=== PATIENT | female | born 1990 | race Caucasian/White ===

== ENCOUNTER 2021-10-26 16:19 | Outpatient (CLI) | payer BC, SELFPAY ==
[2021-10-26 16:46] LABS: Hematocrit 32.5 % (37.0-47.0); Hemoglobin 10.4 g/dL (12.0-15.0); Mean Corpuscular Hemoglobin 26.3 pg (26-34); Mean Corpuscular Volume 82.1 fl (80-100); Platelet Count Result 256 k/mm3 (150-375); Red Blood Count 3.96 M/mm3 (4.2-5.4); Red Cell Distribution Width 15.1 % (11.5-14.5); White Blood Count 10.9 K/mm3 (4.5-10.0)
[2021-10-27 08:00] LABS: Rapid Plasma Reagin Non-Reactive (NonReactive)
== END 2021-10-26 16:20 | disposition home or self-care (01) ==
PROVIDERS: Visit Provider Obstetrics & Gynecology
DX: O82 Encounter for cesarean delivery without indication (principal); Z3A.00 Weeks of gestation of pregnancy not specified
CPT/HCPCS: 36415; 85027; 86592; 86850; 86900; 86901

== ENCOUNTER 2021-10-27 09:47 | Inpatient (IN) | payer BC, SELFPAY ==
--- NOTE | 2021-09-29 12:46 | PC.NURSE ---
Verified with OR schedule and patient--c/s on 10/27/21 at 1200 Patient given requisition for lab draw on 10/26/21
[2021-10-27] VITALS (43 sets, daily range): BP systolic 106–135; BP diastolic 57–85; PULSE 58–98; RESP 12–18; TEMP 36.8–37.6; O2SAT 97–100; BMI 31.1
--- NOTE | 2021-10-27 10:11 | LDADM ---
This patient, Yvonne Skaggs, was admitted to Labor/Delivery/Recovery 119 on 10/27/21 at 09:47. Plans for labor, pain management and were discussed with patient. Patient/family oriented to hospital policies and general routines including ID bracelet, bed and alarms, visiting hours, pain management, procedures, bathroom and other care routines, personal items, smoking policy, room service/diet and guest tray routines, security routines, and visiting hours. Patient/Family are encouraged to report perceived risks to care and to ask questions if they do not understand what they are told or what they should do. See OBIX for further documentation.
[2021-10-27] MEDS: LACTATED RINGERS 1,000 ML 125 ML IV CONT ×3 (10:16→11:47)
--- NOTE | 2021-10-27 12:05 | P.HP_ITS ---
H&P: HPI History of Present Illness Date/Time: 10/27/21 12:05 31 y/o at 39 4/7 weeks with prior , desiring repeat. GBS neg. Chief Complaint: Here for c section. Review of Systems Review of Systems: All systems reviewed & are unremarkable except as noted in HPI and below PMFSH Past Medical History Medical History History of gestational hypertension Surgical History Surgical History (Updated 10/27/21 @ 12:07 by Davidson Ny MD) History of delivery History of tonsillectomy Family History Family History Grandparent Lung cancer Grandparent Dementia Diabetes mellitus Social History Social History Smoking status: Never smoker Substance use: never Spiritual care concerns: No Meds Home Medications and Allergies Home Medications Medication Instructions Recorded Confirmed Type -uvlr fum-folic ac-om3 See Rx Instructions .ROUTE .COMPLEX 10/27/21 10/27/21 History [One Daily ] Allergies Allergy/AdvReac Type Severity Reaction Status Date / Time No Known Allergies Allergy Verified 09/29/21 12:31 Vital Signs Vital Signs - 24 hr 10/27/21 10:24 10/27/21 10:30 10/27/21 11:00 Temperature 36.8 C Pulse Rate 98 84 83 Blood Pressure 106/78 123/79 114/73 10/27/21 11:30 Temperature Pulse Rate 76 Blood Pressure 127/82 Exam Const: Orientation/consciousness: patient oriented x3 Other: Well- developed, well-nourished female in no acute distress. Neck: Thyroid: thyroid normal Lymphatic: no lymphadenopathy noted (in neck, axilla or inguinal nodes) Resp: Effort & Inspection: normal respiratory effort Auscultation: clear to auscultation bilaterally Cardio: Rate: regular rate Rhythm: regular rhythm Heart sounds: S1 normal heart sound present and S2 normal heart sound present GI: Other: ABD: Soft, nontender, nondistended, gravid. NST reactive. TOCO: irregular contractions. No guarding or rebound tenderness. No hepatosplenomegaly. : General: Yes no CVA tenderness Other: Cervix closed/thick Back/Spine/Pelvis: Back: no CVA tenderness Skin: General skin exam: normal color and no rashes or lesions noted Neuro: General: patient oriented x3 Extrem: Other: Extremities: nontender with no edema Psych: Mental Status: mental status grossly normal Affect: normal affect Assessment and Plan Assessment and plan (1) History of delivery: Code(s): Z98.891 - History of uterine scar from previous surgery Status: Inactive Assessment and Plan: A: IUP at 39 4/7 weeks with prior P: Desires repeat . She understands risks of surgery to include risks of anesthesia, risks of pain, infection, bleeding, blood products, thromboembolic phenomena and damage to adjacent structures such as bowel, bladder, ureters, blood vessels and nerves. She understands all these risks and elects to proceed with surgery.
--- NOTE | 2021-10-27 12:07 | P.PNAN_ITS ---
Anes - Initial Pre Proc Eval Procedure: Operation Date: 10/27/21 12:00 Proposed Procedures p Repeat Section - Davidson Ny MD Date/Time: 10/27/21 12:07 Surgeon: Davidson Ny MD Pre Op Diagnosis: C Section Patient Data Age: 31 Gender: F Height: 1.65 m Weight: 85 kg Last Vital Signs Temp 36.8 C 10/27/21 11:00 Pulse 76 10/27/21 11:30 BP 127/82 10/27/21 11:30 Allergies Allergy/AdvReac Type Severity Reaction Status Date / Time No Known Allergies Allergy Verified 09/29/21 12:31 Home Medications Medication Instructions Recorded Confirmed Type -pdmr fum-folic ac-om3 See Rx Instructions .ROUTE .COMPLEX 10/27/21 10/27/21 History [One Daily ] Patient hx anesthesia problems: none Family hx anesthesia problems: none Results Review: All pre-operative results and documents have been reviewed as part of the pre-operative evaluation. [facility] Past Medical History Medical History History of gestational hypertension Surgical History Surgical History History of delivery History of tonsillectomy Family History Family History Grandparent Lung cancer Grandparent Dementia Diabetes mellitus Social History Social History Smoking status: Never smoker Substance use: never Spiritual care concerns: No Anes - Eval Final PreProcedure Day of Procedure 10/27/21 12:07 Patient weight: obese Heart: regular rate and rhythm Lungs: clear to auscultation and normal air movement Airway: Mallampati scale class II Neurological: alert and oriented Last oral intake: >/= 8 hours ASA classification: II Emergent: no Anesthetic plan: proceed Anesthesia type and monitoring: regional spinal and standard monitoring Results Review: All pre-operative results and documents have been reviewed as part of the pre-operative evaluation. Informed Consent: The patient's anesthetic plan and its attendant risks and benefits were discussed with the patient/family/POA. Questions were solicited and answers provided to the satisfaction of the patient/family/POA.
--- NOTE | 2021-10-27 12:08 | WPDHPUPDATE1 ---
History and Physical Update Update Date/Time: 10/27/21 12:08 History and Physical has been reviewed, including an updated exam of the patient. There are NO changes in the patient's condition. Risks, benefits, and alternatives have been discussed and questions answered. Patient agrees to proceed with procedure.
[2021-10-27] MEDS: KETOROLAC 30 MG/ML VIAL (*BKC) IV PUSH (13:06)
--- NOTE | 2021-10-27 13:22 | PM.OBPRVD ---
OB - Delivery Note Procedure Delivery date: 10/27/21 Procedure: Procedures Operation Date: 10/27/21 12:00 <No data on this case meets the specified criteria> Repeat low transverse delivery Delivery monitor: External FHT and External Uterine Route of delivery: (LTCS) Specimen: Yes (cord blood) Quantitative Blood Loss (ml): 285 Anesthesia type: Spinal Disposition: PACU Complications: None Narrative: The patient was taken to the operating room where she was prepared and draped in the usual sterile fashion in dorsal supine position with a leftward tilt. She received cefazolin preoperatively. Spinal anesthesia was found to be adequate. A Pfannenstiel skin incision was made along the previous scar line and was carried through to the underlying layer of the fascia. The fascia was incised in the midline and the incision was extended laterally. The fascia was dissected free of the underlying rectus muscles. The rectus muscles were in the midline. The peritoneum was identified, tented up and entered sharply. The peritoneal incision was extended superiorly and inferiorly with good visualization of the bladder. The bladder blade was placed. The vesicouterine peritoneum was identified, tented up and entered sharply. The incision was extended laterally and the bladder flap was developed. The bladder blade was replaced. The uterus was then incised sharply in a transverse fashion along the lower uterine segment. The incision was extended laterally. The infant's head was delivered atraumatically to the sterile field, followed by the body. The nose and mouth were bulb suctioned. After a delay, the cord was clamped and cut. The was handed off the field. Cord blood was collected. The placenta was removed manually and was passed off the field. The uterus was exteriorized and cleared of all clots and debris. The uterine incision was reapproximated using 0 Monocryl in a running, locked fashion. Excellent hemostasis resulted as did excellent reapproximation of the normal anatomy. The uterus was returned the abdomen. The pelvis was irrigated copiously with warmed normal saline. Rigorous hemostasis was assured. The fascial layer was reapproximated using 0 Vicryl in a running fashion. The skin was closed with a running, subcuticular stitch of 4 0 Vicryl. Dermaflex was applied externally. Sponge, lap, needle and instrument counts were correct. The patient was taken to the recovery room in stable condition. The went to the nursery in stable condition. I was present and scrubbed the entire procedure. Baby Date of : 10/27/21 Time of : 12:47 Weeks of gestation at delivery: 39 Infant gender: Male Weight (pounds): 8 Weight (ounces): 7 presentation: vertex Placenta delivery description: Manual Removal and Normal Configuration Cord Vessel Description: 3 Vessels and Delayed Cord Clamping score one minute: 9 score five minutes: 9
--- NOTE | 2021-10-27 13:25 | PM.OBDSVD ---
DS: Admitting Diagnosis Discharge Date 10/29/21 Admitting Diagnosis IUP at 39 4/7 weeks Prior DS: Discharge Diagnosis Discharge Diagnosis (1) History of delivery: Code(s): Z98.891 - History of uterine scar from previous surgery Status: Acute OB - DS: Summary OB Procedures : None OB Procedures Intrapartum: OB Procedures: : None Peripartum Data Procedures: Procedures Operation Date: 10/27/21 12:00 <No data on this case meets the specified criteria> Repeat LTCS Discharge Plan Discharge Attending physician on discharge: Davidson Ny Discharging Clinician: Davidson Ny Patient Disposition: Home, Self-Care Activity: may shower, may drive after 2 weeks and pelvic rest Diet: regular Wound Care Instructions: incision open to air Discharge Instructions: Call or return if temperature above 100.4? F, increased abdominal pain, increased vaginal bleeding or any new problems. Stand Alone Forms: General Discharge Information Follow-up/Referrals: Davidson Ny MD [Physician] - 4 Weeks Discharge Medications: New ibuprofen 600 mg tablet 600 mg PO Q6H PRN (Reason: cramps) Qty: 30 RF: 0 hydrocodone-acetaminophen 5-325 mg tablet 1 - 2 tablet PO Q6H PRN (Reason: pain) Qty: 30 RF: 0 ferrous sulfate 325 mg (65 mg iron) tablet 325 mg PO DAILY Qty: 30 RF: 0 Continued One Daily [phone] mg-mcg-mg Combo Pack See Rx Instructions .ROUTE .COMPLEX RF: 0 Date of admission: 10/27/21 09:47 Primary Care Provider: UNKNOWN,DOCTOR Admitting Provider: Davidson Ny Attending physician on admission: Davidson Ny Condition: Stable
[2021-10-27] MEDS: OXYTOCIN 30 UNITS/NS 500 ML 30 UNITS/500 ML BAG 125 UNITS IV CONT (14:15)
--- NOTE | 2021-10-27 15:50 | PC.NURSE ---
Patient transferred to post room #288. Support person present. Oriented to unit, room, information board, rooming in, admission packet and security measures. Patient verbalizes understanding.
[2021-10-27] MEDS: IBUPROFEN 600 MG TABLET PO ×2 (18:13→23:48)
[2021-10-27] MEDS: DOCUSATE SODIUM 100 MG CAPSULE PO (18:13)
[2021-10-27] MEDS: SIMETHICONE 80 MG TAB.CHEW PO (18:13)
[2021-10-27] MEDS: KCL 20 MEQ/D5/0.45% SOD CHL 1,000 ML 125 ML IV CONT ×2 (18:14→19:27)
[2021-10-27] MEDS: NALBUPHINE HCL INJ 10 MG/ML AMPUL 2.5 MG IV PUSH (18:15)
[2021-10-27] MEDS: HYDROcodone/acetaminophen (*CRX) 5-325 MG TABLET 1 TAB PO (23:48)
[2021-10-28] MEDS: HYDROcodone/acetaminophen (*CRX) 5-325 MG TABLET 1 TAB PO ×4 (03:15→17:20)
[2021-10-28 04:15] VITALS: BP 120/71; PULSE 67; RESP 16; TEMP 36.4; O2SAT 97
[2021-10-28 05:07] LABS: Basophils Percent Auto 0.2 % (0.2-1.2); Eosinophils Percent Auto 0.2 % (0-4.4); Hemoglobin 9.6 g/dL (12.0-15.0); Immature Granulocyte Absolute 0.13 K/mm3 (0.00-0.031); Immature Granulocyte Percent A 0.6 % (0-0.5); Lymphocytes Absolute Auto 2.45 K/mm3 (0.9-3.2); Lymphocytes Percent Auto 11.7 % (18.3-44.2); Mean Corpuscular Hemoglobin 25.8 pg (26-34); Mean Corpuscular Volume 83.3 fl (80-100); Mean Platelet Volume 11.9 fl (7.4-10.4); Monocytes Absolute Auto 1.3 K/mm3 (0.1-0.6); Monocytes Percent Auto 6.1 % (2.6-8.5); Neutrophils Percent Auto 81.2 % (45.5-73.1); Platelet Count Result 233 k/mm3 (150-375); Red Blood Count 3.72 M/mm3 (4.2-5.4); Red Cell Distribution Width 15.2 % (11.5-14.5); White Blood Count 20.9 K/mm3 (4.5-10.0)
[2021-10-28] MEDS: diphenhydrAMINE HCl INJ 50 MG/ML VIAL 25 MG IV PUSH (07:37)
[2021-10-28] MEDS: MULTIVIT/MIN/PREN/FOL AC/IRON TABLET 1 TAB BY MOUTH (07:38)
[2021-10-28] MEDS: DOCUSATE SODIUM 100 MG CAPSULE PO ×2 (07:38→17:20)
[2021-10-28] MEDS: IBUPROFEN 600 MG TABLET PO ×3 (07:39→19:45)
[2021-10-28] MEDS: POLYSACCHARIDE IRON COMPLEX 150 MG CAPSULE PO ×2 (07:39→17:20)
[2021-10-28] MEDS: SIMETHICONE 80 MG TAB.CHEW PO ×2 (07:39→13:32)
[2021-10-28] MEDS: LANOLIN (LANSINOH) 7.5 GM CREAM 1 APPLIC TOPICAL (07:40)
--- NOTE | 2021-10-28 07:55 | WPDANLDPN2 ---
Anes-Prog Note L&D Date/Time: 10/28/21 07:55 Comfortable throughout: section Neuraxial method: spinal Epidural/Spinal procedure site: clean & non-tender Neuro status: Neuro function grossly intact. Cardiovascular status: normal Respiratory status: normal Airway patency: baseline Mental status: baseline Post-Op hydration status: normal Vital Signs: Last Vital Signs Temp 36.4 C 10/28/21 04:15 Pulse 67 10/28/21 04:15 Resp 16 10/28/21 04:15 BP 120/71 10/28/21 04:15 Pulse Ox 97 10/28/21 04:15 Pain score (VAS): 3 I/O: Intake & Output 10/27/21 10/27/21 10/28/21 15:59 23:59 07:59 Intake Total 2000 2600 1200 Output Total 885 1850 850 Balance 1115 750 350 Post-procedural complaints: none Patient feedback: Patient satisfied with anesthetic care.
--- NOTE | 2021-10-28 07:56 | WPDANLDNPN2 ---
Anes-Prog Note L&D-Neuraxial Date/Time: 10/28/21 07:56 Neuraxial medications: intrathecal PF morphine Opiod-related complaints: none Patient feedback: Patient satisfied with post-operative pain management.
[2021-10-28 08:00] VITALS: BP 118/75; PULSE 63; RESP 18; TEMP 36.9
--- NOTE | 2021-10-28 08:58 | PM.OBPNVD ---
OB - PN: Subj Subjective Date/time seen: 10/28/21 08:58 Narrative: Pain OK. Tolerating diet. Would like circumcision for son. OB - PN: Obj Data Labs CBC & Chem 7: 10/28/21 04:06 Labs: Laboratory Results - last 24 hr 10/28/21 04:06 WBC 20.9 H RBC 3.72 L Hgb 9.6 L Hct 31.0 L MCV 83.3 MCH 25.8 L MCHC 31.0 L RDW 15.2 H Plt Count 233 MPV 11.9 H Immature Gran % (Auto) 0.6 H Neut % (Auto) 81.2 H Lymph % (Auto) 11.7 L [place] % (Auto) 6.1 Eos % (Auto) 0.2 Baso % (Auto) 0.2 Lymph # (Auto) 2.45 [place] # (Auto) 1.3 H Eos # (Auto) 0.0 Baso # (Auto) 0.0 Abs Immat Gran (auto) 0.13 H Absolute Neuts (auto) 17.0 H Absolute Nucleated RBC 0.0 Nucleated RBC % 0.0 OB - PN A/P Plan Comments: A: POD#1, doing well. P: Routine care. Reviewed circ. Exam Narrative: AVSS I/O OK ABD soft, nontender, fundus firm. Incision c/d/i. EXT nontender
[2021-10-28 11:21] VITALS: BP 116/71; PULSE 68; RESP 20; TEMP 36.5; O2SAT 97
--- NOTE | 2021-10-28 11:26 | PC.NURSE ---
On 10/28/21, the student, Alesha Newby, provided care and completed [facility] documentation on this patient. I have reviewed the student's documentation and agree with the findings.
--- NOTE | 2021-10-28 11:35 | PC.NURSE ---
[id number] Mother verbalizes she is able to independently latch with appropriate positioning/alignment. She denies any nipple discomfort and is responsively . is currently meeting outcomes for weight, output, jaundice and feeding frequencies of 8-12 times in 24 hours. Mother declines any additional assistance/education at this time. Reviewed postioning, big,wide open gape and encouraged skin to skin. Mother is encouraged to call for assistance if her infant doesn?t latch or there is discomfort with latching. Mother voiced understanding of information shared and mom and baby guide reviewed for additional resource information . Reported to the primary RN.
[2021-10-28 13:00] VITALS: BP 116/71; PULSE 68; RESP 20; TEMP 36.5; O2SAT 97
[2021-10-28 19:50] VITALS: BP 135/81; PULSE 81; RESP 18; TEMP 36.6; O2SAT 98
[2021-10-28] MEDS: HYDROcodone/acetaminophen (*CRX) 10-325 MG TABLET 1 TAB PO (21:36)
[2021-10-29] MEDS: IBUPROFEN 600 MG TABLET PO ×2 (05:31→12:04)
[2021-10-29 08:00] VITALS: BP 136/81; PULSE 73; RESP 18; TEMP 36.4
[2021-10-29] MEDS: POLYSACCHARIDE IRON COMPLEX 150 MG CAPSULE PO (08:54)
[2021-10-29] MEDS: LANOLIN (LANSINOH) 7.5 GM CREAM 1 APPLIC TOPICAL (08:54)
[2021-10-29] MEDS: MULTIVIT/MIN/PREN/FOL AC/IRON TABLET 1 TAB BY MOUTH (08:54)
[2021-10-29] MEDS: SIMETHICONE 80 MG TAB.CHEW PO (08:55)
[2021-10-29] MEDS: DOCUSATE SODIUM 100 MG CAPSULE PO (08:55)
[2021-10-29] MEDS: HYDROcodone/acetaminophen (*CRX) 5-325 MG TABLET 1 TAB PO ×3 (08:55→15:52)
[2021-10-29 12:55] VITALS: BP 136/81; PULSE 73; RESP 18; TEMP 36.4; O2SAT 98
--- NOTE | 2021-10-29 12:57 | PM.OBPNVD ---
OB - PN: Subj Subjective Date/time seen: 10/29/21 12:57 Narrative: Pain OK. Tolerating diet. Would like to go home. OB - PN: Obj Data Labs CBC & Chem 7: 10/28/21 04:06 OB - PN A/P Plan Comments: A: POD#2, doing well. P: Home to f/u 4 weeks. Exam Narrative: AVSS ABD soft, nontender, fundus firm. Incision c/d/i. EXT nontender
--- NOTE | 2021-10-29 13:00 | PC.NURSE ---
Self care and infant care discharge instructions given to parents including follow up visit date and time. Mother verbalized understanding. No questions or concerns verbalized. Very pleasant and cooperative.
--- NOTE | 2021-10-29 14:15 | PC.NURSE ---
0905 - Mother verbalizes she is able to independently latch with appropriate positioning/alignment. She denies any nipple discomfort and is responsively . Infant is currently meeting outcomes for weight, output, jaundice and feeding frequencies of 8-12 times in 24 hours. Mother declines any additional assistance/education at this time. Mother is encouraged to call for assistance if her doesn?t latch or there is discomfort with latching. Mother voiced understanding of information shared and mom and baby guide reviewed for additional resource information . Reported to the primary RN.
[2021-10-30 11:06] VITALS: BP 137/88; PULSE 88; RESP 16; TEMP 37.5; O2SAT 98
== END 2021-10-29 16:20 | disposition home or self-care (01) | DRG 788 ==
LOC: ANHLDR 13:27 → ANHOB2 15:54
PROVIDERS: Admitting Provider Obstetrics & Gynecology; Visit Provider Obstetrics & Gynecology
PROC: 10D00Z1 Extraction of Products of Conception, Low, Open Approach (ICD-10-PCS; CPT 59514; principal; 2021-10-27 12:00)
DX: O34.211 Maternal care for low transverse scar from previous cesarean delivery (principal); Z37.0 Single live birth; Z3A.39 39 weeks gestation of pregnancy
CPT/HCPCS: 36415; 85025; A9270; J0131; J1100; J1165; J1200; J1885; J2274; J2300; J2405; J2590; J3480; J7120

== ENCOUNTER 2022-04-07 10:55 | Emergency (ER) | payer BC, SELFPAY ==
[2022-04-07 11:11] VITALS: BP 132/81; PULSE 86; RESP 18; TEMP 36.6; O2SAT 100
--- NOTE | 2022-04-07 11:33 | ED.URI ---
HPI - URI/Sore Throat General Chief Complaint: Upper Respiratory Infection Stated Complaint: Cough,Congestion Time Seen by Provider: 04/07/22 11:25 History of Present Illness HPI Narrative: Yvonne Skaggs is a 31-year-old female [facility] with complaints of congestion since last Tuesday she had a fever over the weekend but has been afebrile for the last couple of days she has minimal sore throat she has sinus congestion. She also has left high slight pinkness but she states in the morning that it was sealed shut with discharge. 3-year-old son had eye discharge last week and patient is breast-feeding Related Data Home Medications Medication Instructions Recorded Confirmed norethindrone (contraceptive) 0.35 0.35 mg PO DAILY 04/07/22 04/07/22 mg tablet Allergies Allergy/AdvReac Type Severity Reaction Status Date / Time No Known Allergies Allergy Verified 04/07/22 11:00 Review of Systems Review of Systems: CONSTITUTIONAL: Denies fever, chills, sweats. EYES: Denies visual changes, redness, has discharge. ENT: Denies rhinorrhea, has congestion, mild sore throat, otalgia. CARDIOVASCULAR: Denies chest pain, palpitations, edema. RESPIRATORY: Denies dyspnea, wheezing, cough GASTROINTESTINAL: Denies abdominal pain, nausea, vomiting, diarrhea. GENITOURINARY: Denies dysuria, hematuria, abnormal discharge SKIN: Denies rash or itching. NEUROLOGIC: Denies numbness, or focal weakness. PSYCHIATRIC: Denies anxiety or depression. [facility] Past Medical History Medical History History of gestational hypertension Surgical History Surgical History History of delivery History of tonsillectomy Family History Family History Grandparent Lung cancer Grandparent Dementia Diabetes mellitus Social History Social History Smoking status: Never smoker Substance use: never Spiritual care concerns: No Comments At time of signature, I agree with nursing past medical, surgical, social and family history. There is no relevant family history pertinent to the presenting complaint. Exam Narrative: GENERAL: This is a well-nourished, well-developed patient, in mild distress. HEAD: normocephalic, atraumatic. EYES: . Sclera clear/white on right, mildly injected on the left. Vision is grossly intact. EARS: External ears normal, auditory canals clear and with drainage, TMs normal without perforation. Hearing grossly intact. NOSE: External nose normal without nasal discharge, nares without redness,has rhinorrhea. THROAT: Mucous membranes moist, posterior pharynx NECK: Neck supple, non-tender CARDIOVASCULAR: Regular rate and rhythm without murmurs, gallops, or rubs. RESPIRATORY: Clear to auscultation. Breath sounds equal bilaterally. No wheezes, rales, or rhonchi. GASTROINTESTINAL: Abdomen soft, non-tender, SKIN: warm, intact with no suspicious lesions or rash, good texture and turgor. NEURO: awake, alert, and oriented to person, place and time. There were no obvious focal neurologic abnormalities. Steady gait EXTREMITIES: Normal range of motion. BACK: Nontender without deformity Course Course Emergency Course: Patient comes with eye discharge and also sinus congestion that has been present for about a week she has been afebrile since Tuesday but the congestion has remained she is also breast-feeding Patient started on prednisone 40 mg x 5 days and should use Flonase if congestion continues Level of Care: Express Care Visit Vital Signs Vital signs: Vital Signs Temperature 97.9 F 04/07/22 11:11 Pulse Rate 86 04/07/22 11:11 Respiratory Rate 18 04/07/22 11:11 Blood Pressure 132/81 04/07/22 11:11 Pulse Oximetry 100 04/07/22 11:11 Oxygen Delivery Room Air 04/07/22 11:11
== END 2022-04-07 11:43 | disposition home or self-care (01) ==
PROVIDERS: Emergency Provider Nurse Practitioner
DX: J01.10 Acute frontal sinusitis, unspecified (principal)
CPT/HCPCS: 99213; G0463

== ENCOUNTER 2024-06-30 19:23 | Observation (INO) | payer OTHER, SELFPAY ==
--- NOTE | ~2024-06-30 | CT_ITS ---
EXAMINATION: CT abdomen pelvis w con DATE: 06/30/2024 20:42 INDICATION: Mid abdominal pain TECHNIQUE: Computed tomography (CT) of the abdomen and pelvis was performed with 100 CC Omnipaque 350 intravenous contrast. Automated exposure control and iterative reconstruction technique were employe d. Exam dose: 407.93 mGy-cm total exam DLP. COMPARISON: None. FINDINGS: The lung bases are clear. Normal heart size. No pericardial or pleural effusion. The liver, gallbladder, bile ducts spleen, pancreas and pancreatic duct appear normal. Normal adrenal glands. No renal mass lesion or urinary tract calculus or hydroureteronephrosis. The urinary bladder is unrem arkable. Retroverted uterus. The appendix measures up to 10 mm. The appendiceal wall appears thickened. There is minimal periappen diceal fat stranding. Early at acute appendicitis is suspected. No bowel obstruction, bowel wall thickening, pneumatosis or intraperitoneal free air is noted otherwi se. Normal caliber of the abdominal aorta. No intraperitoneal or retroperitoneal or pelvic mass lesion or adenopathy or ascites. Included skeletal structures are unremarkable. IMPRESSION: Appendix is dilated to 10 mm with thickening of the wall and minimal periappendiceal fat stranding, consistent with early acute appendicitis Reviewed, dictated and finalized at [facility] Reviewed, dictated and finalized at [facility]. TWISTER IMPRESSION: Appendix is dilated to 10 mm with thickening of the wall and minim al periappendiceal fat stranding, consistent with early acute appendicitis
[2024-06-30 19:28] VITALS: BP 117/78; PULSE 81; RESP 15; TEMP 36.9; O2SAT 100
[2024-06-30 19:30] VITALS: BP 117/78; O2SAT 100
[2024-06-30 19:38] LABS: Basophils Absolute Auto 0.1 K/mm3 (0.0-0.1); Basophils Percent Auto 0.3 % (0.2-1.2); Eosinophils Absolute Auto 0.1 K/mm3 (0-0.3); Eosinophils Percent Auto 0.3 % (0-4.4); Hematocrit 36.1 % (37.0-47.0); Hemoglobin 11.5 g/dL (12.0-15.0); Immature Granulocyte Absolute 0.09 K/mm3 (0.00-0.031); Immature Granulocyte Percent A 0.5 % (0-0.5); Lymphocytes Absolute Auto 3.16 K/mm3 (0.9-3.2); Lymphocytes Percent Auto 17.3 % (18.3-44.2); Mean Corpuscular HGB Conc 31.9 g/dl (32-36); Mean Corpuscular Hemoglobin 26.8 pg (26-34); Mean Corpuscular Volume 84.1 fl (80-100); Mean Platelet Volume 9.7 fl (7.4-10.4); Monocytes Absolute Auto 1.3 K/mm3 (0.1-0.6); Neutrophils Absolute Auto 13.6 K/mm3 (1.3-6.7); Neutrophils Percent Auto 74.6 % (45.5-73.1); Platelet Count Result 306 k/mm3 (150-375); Red Blood Count 4.29 M/mm3 (4.2-5.4); Red Cell Distribution Width 13.6 % (11.5-14.5); White Blood Count 18.3 K/mm3 (4.5-10.0)
[2024-06-30 19:49] LABS: Alanine Aminotransferase 14 U/L (6-35); Albumin Level 4.5 g/dL (3.5-5.1); Alkaline Phosphatase 98 U/L (38-126); Anion Gap 11 mmol/L (4-12); Aspartate Amino Transferase 25 U/L (14-36); Bilirubin,Total 0.7 mg/dL (0.2-1.3); Blood Urea Nitrogen 7 mg/dL (7-17); Calcium 9.3 mg/dL (8.4-10.2); Carbon Dioxide 22 mmol/L (22-30); Chloride 106 mmol/L (98-107); Estimated CRCL calculation 102 ml/min; Estimated Glomerular Filt Rate > 60; Glucose 113 mg/dL (65-110); Lipase 95 U/L (23-300); Potassium 3.1 mmol/L (3.4-5.0); Sodium 139 mmol/L (137-145)
--- NOTE | 2024-06-30 20:04 | ED.ABDPAIN ---
HPI - Abdominal Pain General Chief Complaint: Abdominal Pain <Ria Miller PA-C - Last Filed: 06/30/24 21:51> Stated Complaint: abdominal pain <Ria Miller PA-C - Last Filed: 06/30/24 21:51> Time Seen by Provider: 06/30/24 19:26 <Ria Miller PA-C - Last Filed: 06/30/24 21:51> Source: patient <KAROLINA Gonzáles Last Filed: 06/30/24 21:51> Mode of arrival: ambulatory <KAROLINA Gonzáles Last Filed: 06/30/24 21:51> Limitations: no limitations <Ria Miller PA-C - Last Filed: 06/30/24 21:51> History of Present Illness HPI narrative: This is a 33 year old female that presents to the ER for abdominal pain. Reports mid abdominal pain. Ongoing over the last couple of hours. Denies fever, vomiting, diarrhea, dysuria. <Ria Miller PA-C - Last Filed: 06/30/24 21:51> Related Data Home Medications: Home Medications ?Medication ?Instructions ?Recorded ?Confirmed ?Last Taken ?Type No Home Medications 06/30/24 06/30/24 Unknown History <Ria Miller PA-C - Last Filed: 06/30/24 21:51> Allergies/Adverse Reactions: Allergies Allergy/AdvReac Type Severity Reaction Status Date / Time No Known Allergies Allergy Verified 06/30/24 19:24 <Ria Miller PA-C - Last Filed: 06/30/24 21:51> Review of Systems Review of Systems: CONSTITUTIONAL: Denies fever GASTROINTESTINAL: Reports abdominal pain. Denies nausea, vomiting, or diarrhea. GENITOURINARY: Denies dysuria or hematuria. <Ria Miller PA-C - Last Filed: 06/30/24 21:51> All systems reviewed & are unremarkable except as noted in HPI and below <Ria Miller PA-C - Last Filed: 06/30/24 21:51> [facility] Past Medical History Medical History: Medical History History of gestational hypertension <KAROLINA Gonzáles Last Filed: 06/30/24 21:51> Surgical History Surgical History: Surgical History History of delivery History of tonsillectomy <KAROLINA Gonzáles Last Filed: 06/30/24 21:51> Family History Family History: Family History Grandparent Lung cancer Grandparent Dementia Diabetes mellitus <KAROLINA Gonzáles Last Filed: 06/30/24 21:51> Social History Social History: Social History Smoking status: Never smoker Alcohol intake: never Substance use: never Substance use type: does not use Do You Feel Safe in your Home?: Yes Lack of Transportation: No Lack of Food: Never True Current Housing: I Have Housing Concerned About Future Housing: No Difficulty Paying Gas/Electric Bills: No Difficulty Paying for Meds: No Currently Unemployed: No Education: Bachelor's Degree Difficulty w/ Childcare or Family Care: No Spiritual care concerns: No <KAROLINA Gonzáles Last Filed: 06/30/24 21:51> Exam Narrative: GENERAL: Well-appearing, well-nourished, and in no acute distress. HEAD: Normocephalic, atraumatic. EYES: EOMI. CHEST: Clear to auscultation. No respiratory distress. No wheezes rales or rhonchi HEART: Regular rate and rhythm. No murmur heard. Normal peripheral pulses. ABDOMEN: Soft, nondistended, normal active bowel sounds. tender to palpation in the right lower quadrant, without guarding EXTREMITIES: Normal range of motion. No edema. SKIN: Warm, dry, no rash. NEURO: No focal deficits. Alert and oriented x3. PSYCH: Normal mood and affect <KAROLINA Gonzáles Last Filed: 06/30/24 21:51> Course Course Emergency Course: patient updated on workup and need for admission for further management <KAROLINA Gonzáles Filed: 06/30/24 21:51> [employer] ASSOCIATE/PA Physician Supervision For this patient encounter, I reviewed the DISTRI[employer] C[employer] ASSOCIATE or PA documentation, treatment plan, and medical decision making; and I had [id number] time with this patient. <New Cao MD - Last Filed: 07/01/24 00:45> Consultations Consultation #1: spoke with general surgery about patient and workup. admit to surgery service. Patient will remain NPO, Zosyn will be scheduled, IV fluids given and pain medication as needed <Ria Miller PA-C - Last Filed: 06/30/24 21:51> Date: 06/30/24 <Ria Miller PA-C - Last Filed: 06/30/24 21:51> Vital Signs Vital signs: Vital Signs Temperature 98.5 F 06/30/24 19:28 Pulse Rate 81 06/30/24 19:28 Respiratory Rate 15 06/30/24 19:28 Blood Pressure 117/78 06/30/24 19:28 Pulse Oximetry 100 06/30/24 19:28 Temperature 98.5 F 06/30/24 23:25 Pulse Rate 134 H 06/30/24 23:25 Respiratory Rate 12 06/30/24 23:25 Blood Pressure 118/64 06/30/24 23:25 Pulse Oximetry 95 06/30/24 23:25 <Ria Miller PA-C - Last Filed: 06/30/24 21:51> Vital Signs Temperature 98.5 F 06/30/24 19:28 Pulse Rate 81 06/30/24 19:28 Respiratory Rate 15 06/30/24 19:28 Blood Pressure 117/78 06/30/24 19:28 Pulse Oximetry 100 06/30/24 19:28 Temperature 98.5 F 06/30/24 23:25 Pulse Rate 134 H 06/30/24 23:25 Respiratory Rate 12 06/30/24 23:25 Blood Pressure 118/64 06/30/24 23:25 Pulse Oximetry 95 06/30/24 23:25 <New Cao MD - Last Filed: 07/01/24 00:45> MDM - Abdominal Pain MDM Narrative Medical decision making narrative: Patient presents to the emergency department for mid abdominal pain and fevers. She is afebrile in the ER and nontoxic appearing. Her vitals are stable. CBC with leukocytosis to 18.3. Metabolic panel significant for mild hypokalemia, potassium and magnesium replaced. test negative. CT abdomen pelvis shows findings of early acute appendicitis. patient updated on workup and need for admission for further management. spoke with general surgery about patient and workup. admit to surgery service. Patient will remain NPO, Zosyn will be scheduled, IV fluids given and pain medication as needed <Ria Miller PA-C - Last Filed: 06/30/24 21:51> Differential Diagnosis Differential diagnosis: Likely acute appendicitis, calculus of kidney, constipation and diverticulitis <Ria Miller PA-C - Last Filed: 06/30/24 21:51> Lab Data Attestation: I reviewed the patient's lab results. <Ria Miller PA-C - Last Filed: 06/30/24 21:51> Result diagrams: 06/30/24 19:33 06/30/24 19:32 <Ria Miller PA-C - Last Filed: 06/30/24 21:51> Labs: Lab Results 06/30/24 06/30/24 06/30/24 Range/Units 19:32 19:33 20:22 WBC 18.3 H (4.5-10.0) K/mm3 RBC 4.29 (4.2-5.4) M/mm3 Hgb 11.5 L (12.0-15.0) g/dL Hct 36.1 L (37.0-47.0) % MCV 84.1 (80-100) fl MCH 26.8 (26-34) pg MCHC 31.9 L (32-36) g/dl RDW 13.6 (11.5-14.5) % Plt Count 306 (150-375) k/mm3 MPV 9.7 (7.4-10.4) fl Immature Gran % (Auto) 0.5 (0-0.5) % Neut % (Auto) 74.6 H (45.5-73.1) % Lymph % (Auto) 17.3 L (18.3-44.2) % [place] % (Auto) 7.0 (2.6-8.5) % Eos % (Auto) 0.3 (0-4.4) % Baso % (Auto) 0.3 (0.2-1.2) % Lymph # (Auto) 3.16 (0.9-3.2) K/mm3 [place] # (Auto) 1.3 H (0.1-0.6) K/mm3 Eos # (Auto) 0.1 (0-0.3) K/mm3 Baso # (Auto) 0.1 (0.0-0.1) K/mm3 Abs Immat Gran (auto) 0.09 H (0.00-0.031) K/mm3 Absolute Neuts (auto) 13.6 H (1.3-6.7) K/mm3 Absolute Nucleated RBC 0.000 (0.0-0.012) K/mm3 Nucleated RBC % 0.0 (0.0-0.2) % Sodium 139 (137-145) mmol/L Potassium 3.1 L (3.4-5.0) mmol/L Chloride 106 (98-107) mmol/L Carbon Dioxide 22 (22-30) mmol/L Anion Gap 11 (4-12) mmol/L BUN 7 (7-17) mg/dL Creatinine 0.70 (0.7-1.0) mg/dL Estim Creat Clear Calc 102 ml/min Estimated GFR > 60 (59 - ) Glucose 113 H (65-110) mg/dL Calcium 9.3 (8.4-10.2) mg/dL Magnesium 1.7 (1.6-2.3) mg/dL Total Bilirubin 0.7 (0.2-1.3) mg/dL AST 25 (14-36) U/L ALT 14 (6-35) U/L Alkaline Phosphatase 98 (38-126) U/L Total Protein 8.0 (6.3-8.2) g/dL Albumin 4.5 (3.5-5.1) g/dL Lipase 95 (23-300) U/L POC Urine HCG, Qual Negative (Negative) <Ria Miller PA-C - Last Filed: 06/30/24 21:51> Lab Results 06/30/24 06/30/24 06/30/24 Range/Units 19:32 19:33 20:22 WBC 18.3 H (4.5-10.0) K/mm3 RBC 4.29 (4.2-5.4) M/mm3 Hgb 11.5 L (12.0-15.0) g/dL Hct 36.1 L (37.0-47.0) % MCV 84.1 (80-100) fl MCH 26.8 (26-34) pg MCHC 31.9 L (32-36) g/dl RDW 13.6 (11.5-14.5) % Plt Count 306 (150-375) k/mm3 MPV 9.7 (7.4-10.4) fl Immature Gran % (Auto) 0.5 (0-0.5) % Neut % (Auto) 74.6 H (45.5-73.1) % Lymph % (Auto) 17.3 L (18.3-44.2) % [place] % (Auto) 7.0 (2.6-8.5) % Eos % (Auto) 0.3 (0-4.4) % Baso % (Auto) 0.3 (0.2-1.2) % Lymph # (Auto) 3.16 (0.9-3.2) K/mm3 [place] # (Auto) 1.3 H (0.1-0.6) K/mm3 Eos # (Auto) 0.1 (0-0.3) K/mm3 Baso # (Auto) 0.1 (0.0-0.1) K/mm3 Abs Immat Gran (auto) 0.09 H (0.00-0.031) K/mm3 Absolute Neuts (auto) 13.6 H (1.3-6.7) K/mm3 Absolute Nucleated RBC 0.000 (0.0-0.012) K/mm3 Nucleated RBC % 0.0 (0.0-0.2) % Sodium 139 (137-145) mmol/L Potassium 3.1 L (3.4-5.0) mmol/L Chloride 106 (98-107) mmol/L Carbon Dioxide 22 (22-30) mmol/L Anion Gap 11 (4-12) mmol/L BUN 7 (7-17) mg/dL Creatinine 0.70 (0.7-1.0) mg/dL Estim Creat Clear Calc 102 ml/min Estimated GFR > 60 (59 - ) Glucose 113 H (65-110) mg/dL Calcium 9.3 (8.4-10.2) mg/dL Magnesium 1.7 (1.6-2.3) mg/dL Total Bilirubin 0.7 (0.2-1.3) mg/dL AST 25 (14-36) U/L ALT 14 (6-35) U/L Alkaline Phosphatase 98 (38-126) U/L Total Protein 8.0 (6.3-8.2) g/dL Albumin 4.5 (3.5-5.1) g/dL Lipase 95 (23-300) U/L POC Urine HCG, Qual Negative (Negative) <New Cao MD - Last Filed: 07/01/24 00:45> Imaging Data Radiologist's impression: ITS Impressions Abdomen/Pelvis CT 06/30/24 20:52 IMPRESSION: Appendix is dilated to 10 mm with thickening of the wall and minimal periappendiceal fat stranding, consistent with early acute appendicitis <Ria Miller PA-C - Last Filed: 06/30/24 21:51> ITS Impressions Abdomen/Pelvis CT 06/30/24 20:52 IMPRESSION: Appendix is dilated to 10 mm with thickening of the wall and minimal periappendiceal fat stranding, consistent with early acute appendicitis <New Cao MD - Last Filed: 07/01/24 00:45> Critical Care Time Critical Care Time Critical Care Time: No <Ria Miller PA-C - Last Filed: 06/30/24 21:51> Discharge Plan Discharge Clinical Impression: Acute hypokalemia Acute appendicitis Qualifiers: Acute appendicitis type: with localized peritonitis Appendicitis gangrene presence: without gangrene Appendicitis perforation presence: without perforation Appendicitis abscess presence: without abscess Qualified Code(s): K35.30 - Acute appendicitis with localized peritonitis, without perforation or gangrene <KAROLINA Gonzáles Last Filed: 06/30/24 21:51> Patient Disposition: Still a Patient <Ria Miller PA-C - Last Filed: 06/30/24 21:51> Condition: Stable <Ria Miller PA-C - Last Filed: 06/30/24 21:51>
[2024-06-30] MEDS: ONDANSETRON INJ 4 MG/2 ML VIAL IV PUSH (20:16)
[2024-06-30] MEDS: SODIUM CHLORIDE 0.9% IV 1,000 ML 999 ML IV CONT (20:16)
[2024-06-30] MEDS: MORPHINE SULFATE (*CRX) 4 MG/ML INJ IV PUSH (20:16)
[2024-06-30 20:24] LABS: BEDSIDEPREGUCG Negative (Negative)
[2024-06-30 20:27] LABS: Magnesium 1.7 mg/dL (1.6-2.3)
[2024-06-30 21:00] VITALS: BP 131/71; PULSE 119; RESP 18; O2SAT 100
[2024-06-30] MEDS: MAGNESIUM SULF 1 GM/D5W 100 ML 1 GM/100 ML BAG IVPB (21:00)
[2024-06-30 22:01] VITALS: BP 127/72; PULSE 122; RESP 16; O2SAT 99
[2024-06-30] MEDS: PIPERACILLN/TAZ 3.375GM/NS50ML 3.375 GM/50 ML BAG IVPB (22:35)
[2024-06-30 22:52] LABS: Add Urine Microscopic? YES; Appearance Urine Clear (Clear); Bacteria Urine None Seen /hpf; Bilirubin Urine Negative (Negative); Blood Urine 2+ (Negative); Color Urine Yellow (Yellow); Glucose Urine UA Negative (Negative); Ketones Urine 1+ mg/dL (Negative); Leukocyte Esterase Ur Negative LEU/UL (Negative); Nitrate Urine Negative (Negative); Non Pathogenic Casts 0-2; Protein Urine Negative (Negative); RBC Urine 21-50 /hpf (0-2); Specific Grav Ur > 1.045 (1.001-1.035); Squamous Epithelial Cell Urine None Seen /hpf (Few); Urobilinogen Urine 0.2 mg/dL (<2.0); WBC Urine 0-5 /hpf (0-3)
[2024-06-30 23:06] VITALS: BMI 28.8
--- NOTE | 2024-06-30 23:09 | ADMGEN ---
This patient, Yvonne Skaggs, was admitted to [facility] Surg Room 319-01. Patient/family oriented to hospital policies and general routines including ID bracelet, bed and alarms, visiting hours, pain management, procedures, bathroom and other care routines, personal items, smoking policy, room service/diet, and visiting hours. Information on how to activate the Rapid Response Team has been discussed. Patient/Family are encouraged to report perceived risks to care and to ask questions if they do not understand what they are told or what they should do.
[2024-06-30] MEDS: KETOROLAC 30 MG/ML VIAL (*BKC) 15 MG IV PUSH (23:15)
[2024-06-30 23:25] VITALS: BP 118/64; PULSE 134; RESP 12; TEMP 36.9; O2SAT 95
[2024-06-30] MEDS: POTASSIUM CHLORIDE INJ 40 MEQ in SODIUM CHLORIDE 0.9% IV 500 ML 130 MEQ IVPB (23:40)
[2024-07-01] VITALS (8 sets, daily range): BP systolic 102–115; BP diastolic 55–68; PULSE 90–121; RESP 12–18; TEMP 36.6–37.1; O2SAT 98–100
[2024-07-01] MEDS: MORPHINE SULFATE (*CRX) 4 MG/ML INJ IV PUSH (03:40)
[2024-07-01] MEDS: SODIUM CHLORIDE 0.9% IV 1,000 ML 125 ML IV CONT (04:04)
[2024-07-01] MEDS: PIPERACILLN/TAZ 3.375GM/NS50ML 3.375 GM/50 ML BAG IVPB (04:30)
--- NOTE | 2024-07-01 06:59 | WPDANESEPP ---
Anes - Eval Pre Procedure Procedure: laparoscopic appendectomy Date/Time: 07/01/24 06:59 Surgeon: le Preop Diagnosis: acute appendicitis Pre Op Diagnosis: Acute appendicitis Patient Data Age: 33 Gender: F Height: 1.65 m Weight: 78.6 kg Last Vital Signs Temp 37.1 C 07/01/24 04:00 Pulse 96 07/01/24 04:00 Resp 12 07/01/24 04:00 BP 104/63 07/01/24 04:00 Pulse Ox 99 07/01/24 04:00 O2 Del Method Room Air 06/30/24 23:15 Allergies Allergy/AdvReac Type Severity Reaction Status Date / Time No Known Allergies Allergy Verified 06/30/24 19:24 Home Medications ?Medication ?Instructions ?Recorded ?Confirmed ?Type No Home Medications 06/30/24 06/30/24 History Laboratory Tests 06/30/24 06/30/24 06/30/24 19:32 19:33 20:22 WBC 18.3 H K/mm3 (4.5-10.0) RBC 4.29 M/mm3 (4.2-5.4) Hgb 11.5 L g/dL (12.0-15.0) Hct 36.1 L % (37.0-47.0) MCV 84.1 fl (80-100) MCH 26.8 pg (26-34) MCHC 31.9 L g/dl (32-36) RDW 13.6 % (11.5-14.5) Plt Count 306 k/mm3 (150-375) MPV 9.7 fl (7.4-10.4) Immature Gran % (Auto) 0.5 % (0-0.5) Neut % (Auto) 74.6 H % (45.5-73.1) Lymph % (Auto) 17.3 L % (18.3-44.2) [place] % (Auto) 7.0 % (2.6-8.5) Eos % (Auto) 0.3 % (0-4.4) Baso % (Auto) 0.3 % (0.2-1.2) Lymph # (Auto) 3.16 K/mm3 (0.9-3.2) [place] # (Auto) 1.3 H K/mm3 (0.1-0.6) Eos # (Auto) 0.1 K/mm3 (0-0.3) Baso # (Auto) 0.1 K/mm3 (0.0-0.1) Abs Immat Gran (auto) 0.09 H K/mm3 (0.00-0.031) Absolute Neuts (auto) 13.6 H K/mm3 (1.3-6.7) Absolute Nucleated RBC 0.000 K/mm3 (0.0-0.012) Nucleated RBC % 0.0 % (0.0-0.2) Sodium 139 mmol/L (137-145) Potassium 3.1 L mmol/L (3.4-5.0) Chloride 106 mmol/L (98-107) Carbon Dioxide 22 mmol/L (22-30) Anion Gap 11 mmol/L (4-12) BUN 7 mg/dL (7-17) Creatinine 0.70 mg/dL (0.7-1.0) Estim Creat Clear Calc 102 ml/min Estimated GFR > 60 (59 - ) Glucose 113 H mg/dL (65-110) Calcium 9.3 mg/dL (8.4-10.2) Magnesium 1.7 mg/dL (1.6-2.3) Total Bilirubin 0.7 mg/dL (0.2-1.3) AST 25 U/L (14-36) ALT 14 U/L (6-35) Alkaline Phosphatase 98 U/L (38-126) Total Protein 8.0 g/dL (6.3-8.2) Albumin 4.5 g/dL (3.5-5.1) Lipase 95 U/L (23-300) Urine Color Urine Appearance Urine pH Ur Specific [place] Urine Protein Urine Glucose (UA) Urine Ketones Ur Blood (Man) Urine Nitrate Urine Bilirubin Urine Urobilinogen Leukocyte Esterase Rfl Urine RBC Urine WBC Ur Squamous Epith Cells Urine Bacteria Urine Casts POC Urine HCG, Qual Negative (Negative) 06/30/24 22:36 WBC RBC Hgb Hct MCV MCH MCHC RDW Plt Count MPV Immature Gran % (Auto) Neut % (Auto) Lymph % (Auto) [place] % (Auto) Eos % (Auto) Baso % (Auto) Lymph # (Auto) [place] # (Auto) Eos # (Auto) Baso # (Auto) Abs Immat Gran (auto) Absolute Neuts (auto) Absolute Nucleated RBC Nucleated RBC % Sodium Potassium Chloride Carbon Dioxide Anion Gap BUN Creatinine Estim Creat Clear Calc Estimated GFR Glucose Calcium Magnesium Total Bilirubin AST ALT Alkaline Phosphatase Total Protein Albumin Lipase Urine Color Yellow (Yellow) Urine Appearance Clear (Clear) Urine pH 8.0 (5.0-9.0) Ur Specific [place] > 1.045 H (1.001-1.035) Urine Protein Negative mg/dL (Negative) Urine Glucose (UA) Negative mg/dL (Negative) Urine Ketones 1+ H mg/dL (Negative) Ur Blood (Man) 2+ H (Negative) Urine Nitrate Negative (Negative) Urine Bilirubin Negative (Negative) Urine Urobilinogen 0.2 mg/dL (<2.0) Leukocyte Esterase Rfl Negative KAIA/UL (Negative) Urine RBC 21-50 H /hpf (0-2) Urine WBC 0-5 /hpf (0-3) Ur Squamous Epith Cells None seen /hpf (Few) Urine Bacteria None seen /hpf Urine Casts 0-2 POC Urine HCG, Qual Patient hx anesthesia problems: post op nausea/vomiting Family hx anesthesia problems: none Results Review: All pre-operative results and documents have been reviewed as part of the pre-operative evaluation. [facility] Past Medical History Medical History History of gestational hypertension Surgical History Surgical History History of delivery History of tonsillectomy Family History Family History Grandparent Lung cancer Grandparent Dementia Diabetes mellitus Social History Social History Smoking status: Never smoker Alcohol intake: never Substance use: never Substance use type: does not use Do You Feel Safe in your Home?: Yes Lack of Transportation: No Lack of Food: Never True Current Housing: I Have Housing Concerned About Future Housing: No Difficulty Paying Gas/Electric Bills: No Difficulty Paying for Meds: No Currently Unemployed: No Education: Bachelor's Degree Difficulty w/ Childcare or Family Care: No Spiritual care concerns: No Exam Day of Procedure 07/01/24 06:59
--- NOTE | 2024-07-01 07:27 | P.PNAN_ITS ---
Anes - Eval Pre Procedure Procedure: Operation Date: 07/01/24 08:00 Proposed Procedures p Laparoscopic Appendectomy Possible Open - Az Gonzalez DO Date/Time: 07/01/24 07:27 Pre Op Diagnosis: Acute appendicitis Patient Data Age: 33 Gender: F Height: 1.65 m Weight: 78.6 kg Last Vital Signs Temp 37.1 C 07/01/24 04:00 Pulse 96 07/01/24 04:00 Resp 12 07/01/24 04:00 BP 104/63 07/01/24 04:00 Pulse Ox 99 07/01/24 04:00 O2 Del Method Room Air 06/30/24 23:15 Allergies Allergy/AdvReac Type Severity Reaction Status Date / Time No Known Allergies Allergy Verified 06/30/24 19:24 Home Medications ?Medication ?Instructions ?Recorded ?Confirmed ?Type No Home Medications 06/30/24 06/30/24 History Laboratory Tests 06/30/24 06/30/24 06/30/24 19:32 19:33 20:22 WBC 18.3 H K/mm3 (4.5-10.0) RBC 4.29 M/mm3 (4.2-5.4) Hgb 11.5 L g/dL (12.0-15.0) Hct 36.1 L % (37.0-47.0) MCV 84.1 fl (80-100) MCH 26.8 pg (26-34) MCHC 31.9 L g/dl (32-36) RDW 13.6 % (11.5-14.5) Plt Count 306 k/mm3 (150-375) MPV 9.7 fl (7.4-10.4) Immature Gran % (Auto) 0.5 % (0-0.5) Neut % (Auto) 74.6 H % (45.5-73.1) Lymph % (Auto) 17.3 L % (18.3-44.2) [place] % (Auto) 7.0 % (2.6-8.5) Eos % (Auto) 0.3 % (0-4.4) Baso % (Auto) 0.3 % (0.2-1.2) Lymph # (Auto) 3.16 K/mm3 (0.9-3.2) [place] # (Auto) 1.3 H K/mm3 (0.1-0.6) Eos # (Auto) 0.1 K/mm3 (0-0.3) Baso # (Auto) 0.1 K/mm3 (0.0-0.1) Abs Immat Gran (auto) 0.09 H K/mm3 (0.00-0.031) Absolute Neuts (auto) 13.6 H K/mm3 (1.3-6.7) Absolute Nucleated RBC 0.000 K/mm3 (0.0-0.012) Nucleated RBC % 0.0 % (0.0-0.2) Sodium 139 mmol/L (137-145) Potassium 3.1 L mmol/L (3.4-5.0) Chloride 106 mmol/L (98-107) Carbon Dioxide 22 mmol/L (22-30) Anion Gap 11 mmol/L (4-12) BUN 7 mg/dL (7-17) Creatinine 0.70 mg/dL (0.7-1.0) Estim Creat Clear Calc 102 ml/min Estimated GFR > 60 (59 - ) Glucose 113 H mg/dL (65-110) Calcium 9.3 mg/dL (8.4-10.2) Magnesium 1.7 mg/dL (1.6-2.3) Total Bilirubin 0.7 mg/dL (0.2-1.3) AST 25 U/L (14-36) ALT 14 U/L (6-35) Alkaline Phosphatase 98 U/L (38-126) Total Protein 8.0 g/dL (6.3-8.2) Albumin 4.5 g/dL (3.5-5.1) Lipase 95 U/L (23-300) Urine Color Urine Appearance Urine pH Ur Specific [place] Urine Protein Urine Glucose (UA) Urine Ketones Ur Blood (Man) Urine Nitrate Urine Bilirubin Urine Urobilinogen Leukocyte Esterase Rfl Urine RBC Urine WBC Ur Squamous Epith Cells Urine Bacteria Urine Casts POC Urine HCG, Qual Negative (Negative) 06/30/24 22:36 WBC RBC Hgb Hct MCV MCH MCHC RDW Plt Count MPV Immature Gran % (Auto) Neut % (Auto) Lymph % (Auto) [place] % (Auto) Eos % (Auto) Baso % (Auto) Lymph # (Auto) [place] # (Auto) Eos # (Auto) Baso # (Auto) Abs Immat Gran (auto) Absolute Neuts (auto) Absolute Nucleated RBC Nucleated RBC % Sodium Potassium Chloride Carbon Dioxide Anion Gap BUN Creatinine Estim Creat Clear Calc Estimated GFR Glucose Calcium Magnesium Total Bilirubin AST ALT Alkaline Phosphatase Total Protein Albumin Lipase Urine Color Yellow (Yellow) Urine Appearance Clear (Clear) Urine pH 8.0 (5.0-9.0) Ur Specific [place] > 1.045 H (1.001-1.035) Urine Protein Negative mg/dL (Negative) Urine Glucose (UA) Negative mg/dL (Negative) Urine Ketones 1+ H mg/dL (Negative) Ur Blood (Man) 2+ H (Negative) Urine Nitrate Negative (Negative) Urine Bilirubin Negative (Negative) Urine Urobilinogen 0.2 mg/dL (<2.0) Leukocyte Esterase Rfl Negative KAIA/UL (Negative) Urine RBC 21-50 H /hpf (0-2) Urine WBC 0-5 /hpf (0-3) Ur Squamous Epith Cells None seen /hpf (Few) Urine Bacteria None seen /hpf Urine Casts 0-2 POC Urine HCG, Qual Patient hx anesthesia problems: post op nausea/vomiting Family hx anesthesia problems: none Results Review: All pre-operative results and documents have been reviewed as part of the pre- operative evaluation. [facility] Past Medical History Medical History History of gestational hypertension Surgical History Surgical History History of tonsillectomy History of delivery Family History Family History Grandparent Lung cancer Grandparent Dementia Diabetes mellitus Social History Social History Smoking status: Never smoker Alcohol intake: never Substance use: never Substance use type: does not use Do You Feel Safe in your Home?: Yes Lack of Transportation: No Lack of Food: Never True Current Housing: I Have Housing Concerned About Future Housing: No Difficulty Paying Gas/Electric Bills: No Difficulty Paying for Meds: No Currently Unemployed: No Education: Bachelor's Degree Difficulty w/ Childcare or Family Care: No Spiritual care concerns: No Exam Day of Procedure 07/01/24 07:27 Patient weight: overweight Heart: regular rate and rhythm Lungs: clear to auscultation and normal air movement Airway: Mallampati scale class II Neurological: alert and oriented
[2024-07-01] MEDS: LACTATED RINGERS 1,000 ML 30 ML IV CONT ×2 (07:30→09:11)
[2024-07-01] MEDS: SCOPOLAMINE 1 MG PATCH 1 PATCH TRANSDERM (07:30)
--- NOTE | 2024-07-01 07:33 | P.HP_ITS ---
H&P: HPI History of Present Illness Date/Time: 07/01/24 07:33 Chief Complaint: Lower abdominal pain Narrative: This is a 33-year-old woman who presented to the emergency department overnight with lower abdominal pain that started yesterday. She was also feeling chills and she had 1 episode of nausea and vomiting. She has never had any symptoms like this in the past. In the emergency department she was noted to have an elevated white blood count and CT showed evidence of acute appendicitis. Review of Systems Review of Systems: All systems reviewed & are unremarkable except as noted in HPI and below Eyes: Eyes: Denies change in vision ENT: Denies hearing loss, Denies neck pain and Denies sore throat Cardiovascular: Cardiovascular: Denies chest pain and Denies dyspnea Respiratory: Respiratory: Denies cough, Denies dyspnea and Denies wheezing Gastrointestinal: Gastrointestinal: Reports as per HPI Genitourinary: Genitourinary: Denies hematuria and Denies dysuria Musculoskeletal: Musculoskeletal: Denies arthralgias, Denies joint swelling and Denies neck pain Allergic/Immunologic: Allergic/Immunologic: Denies wheezing [facility] Past Medical History Medical History History of gestational hypertension Surgical History Surgical History History of tonsillectomy History of delivery Family History Family History Grandparent Lung cancer Grandparent Dementia Diabetes mellitus Social History Social History Smoking status: Never smoker Alcohol intake: never Substance use: never Substance use type: does not use Do You Feel Safe in your Home?: Yes Lack of Transportation: No Lack of Food: Never True Current Housing: I Have Housing Concerned About Future Housing: No Difficulty Paying Gas/Electric Bills: No Difficulty Paying for Meds: No Currently Unemployed: No Education: Bachelor's Degree Difficulty w/ Childcare or Family Care: No Spiritual care concerns: No Meds Home Medications and Allergies Home Medications ?Medication ?Instructions ?Recorded ?Confirmed ?Type No Home Medications 06/30/24 06/30/24 History Allergies Allergy/AdvReac Type Severity Reaction Status Date / Time No Known Allergies Allergy Verified 06/30/24 19:24 Vital Signs Vital Signs - 24 hr 06/30/24 19:28 06/30/24 19:30 06/30/24 21:00 Temperature 98.5 F Pulse Rate 81 119 H Respiratory Rate 15 18 Blood Pressure 117/78 117/78 131/71 Pulse Oximetry 100 100 100 Oxygen Delivery 06/30/24 22:01 06/30/24 23:15 06/30/24 23:25 Temperature 98.5 F Pulse Rate 122 H 134 H Respiratory Rate 16 12 Blood Pressure 127/72 118/64 Pulse Oximetry 99 95 Oxygen Delivery Room Air 07/01/24 00:00 07/01/24 04:00 07/01/24 04:00 Temperature 98.7 F Pulse Rate 121 H 100 96 Respiratory Rate 12 Blood Pressure 104/63 Pulse Oximetry 99 Oxygen Delivery Exam Const: General: alert; No acute distress Orientation/consciousness: patient oriented x3 Limitations: no limitations HENMT: Head: normocephalic and atraumatic Ears: hearing grossly normal b ilaterally Face/Nose/Sinus: Normal external nose present and Normal nares present Mouth: Yes Normal oral and palatal mucosa present and Yes moist mucous membranes Eyes: General: appearance normal, both eyes and all related structures Conjunctivae: conjunctivae normal Sclera: sclerae normal Pupils: Equal, round and reactive pupils present EOM: EOMs intact bilaterally Neck: Neck: normal visual inspection, full ROM, no lymphadenopathy, supple and no JVD Lymphatic: no lymphadenopathy noted Chest: Chest palpation & inspection: normal inspection of the chest Resp: Effort & Inspection: normal respiratory effort and able to speak in complete sentences Auscultation: clear to auscultation bilaterally Percussion: percussion normal Cardio: Jugular venous distension: no JVD Rate: regular rate Rhythm: regular rhythm Heart sounds: S1 normal heart sound present and S2 normal heart sound present Peripheral pulses: Peripheral pulses 2+ throughout GI: Inspection: normal to inspection and non-distended GI Palp: Yes Soft to palpation, Yes Tenderness to palpation present (GI) (RLQ and infraumbilical), No Guarding due to palpation present (GI) and No Rebound tenderness present Auscultation: normal bowel sounds : General: Yes no CVA tenderness Back/Spine/Pelvis: Back: no CVA tenderness Skin: General skin exam: normal color and dry skin Neuro: General: patient oriented x3, gait normal, moves all extremities, no focal motor deficits and CN's II-XI intact bilaterally Cranial nerves: Yes Equal, round and reactive pupils present Speech: normal speech Extrem: General: normal to inspection and capillary refill normal H&P: Results Labs Labs: Short CBC 06/30/24 Range/Units 19:33 WBC 18.3 H (4.5-10.0) K/mm3 Hgb 11.5 L (12.0-15.0) g/dL Hct 36.1 L (37.0-47.0) % Plt Count 306 (150-375) k/mm3 BMP 06/30/24 19:32 Sodium 139 Potassium 3.1 L Chloride 106 Carbon Dioxide 22 BUN 7 Creatinine 0.70 Glucose 113 H Calcium 9.3 Liver Function 06/30/24 Range/Units 19:32 Total Bilirubin 0.7 (0.2-1.3) mg/dL AST 25 (14-36) U/L ALT 14 (6-35) U/L Alkaline Phosphatase 98 (38-126) U/L Albumin 4.5 (3.5-5.1) g/dL Urine 06/30/24 Range/Units 22:36 Urine Color Yellow (Yellow) Urine Appearance Clear (Clear) Urine pH 8.0 (5.0-9.0) Ur Specific [place] > 1.045 H (1.001-1.035) Urine Protein Negative (Negative) mg/dL Urine Glucose (UA) Negative (Negative) mg/dL Imaging CT scan - abdomen: Radiologist's impression: ITS Impressions Abdomen/Pelvis CT 06/30/24 20:52 IMPRESSION: Appendix is dilated to 10 mm with thickening of the wall and minimal periappendiceal fat stranding, consistent with early acute appendicitis Assessment and Plan Assessment and plan (1) Acute appendicitis: Qualifiers: Acute appendicitis type: with localized peritonitis Appendicitis abscess presence: without abscess Appendicitis gangrene presence: without gangrene Appendicitis perforation presence: without perforation Qualified Code(s): K35.30 - Acute appendicitis with localized peritonitis, without perforation or gangrene Code(s): K35.80 - Unspecified acute appendicitis Status: Acute Assessment and Plan: * I have reviewed the CT and discussed the findings with the patient. She has evidence of acute appendicitis. I discussed both medical and surgical treatment options and patient feels comfortable proceeding with surgery. I have recommended laparoscopic appendectomy, possible open. I discussed the procedure, risks, benefits, and alternatives. Questions were answered. She was started on Zosyn in the emergency department. Will continue this perioperatively.
--- NOTE | 2024-07-01 07:33 | WPDHPUPDATE1 ---
History and Physical Update Update Date/Time: 07/01/24 07:33 History and Physical has been reviewed, including an updated exam of the patient. There are NO changes in the patient's condition. Risks, benefits, and alternatives have been discussed and questions answered. Patient agrees to proceed with procedure.
--- NOTE | 2024-07-01 07:41 | WPDANESEPPF ---
Anes - Initial Pre Proc Eval Procedure: Operation Date: 07/01/24 08:00 Proposed Procedures p Laparoscopic Appendectomy Possible Open - Az Gonzalez DO Date/Time: 07/01/24 07:41 Surgeon: Az Gonzalez DO Pre Op Diagnosis: Acute appendicitis Patient Data Age: 33 Gender: F Height: 1.65 m Weight: 78.6 kg Last Vital Signs Temp 37.1 C 07/01/24 04:00 Pulse 96 07/01/24 04:00 Resp 12 07/01/24 04:00 BP 104/63 07/01/24 04:00 Pulse Ox 99 07/01/24 04:00 O2 Del Method Room Air 06/30/24 23:15 Allergies Allergy/AdvReac Type Severity Reaction Status Date / Time No Known Allergies Allergy Verified 06/30/24 19:24 Home Medications ?Medication ?Instructions ?Recorded ?Confirmed ?Type No Home Medications 06/30/24 06/30/24 History Laboratory Tests 06/30/24 06/30/24 06/30/24 19:32 19:33 20:22 WBC 18.3 H K/mm3 (4.5-10.0) RBC 4.29 M/mm3 (4.2-5.4) Hgb 11.5 L g/dL (12.0-15.0) Hct 36.1 L % (37.0-47.0) MCV 84.1 fl (80-100) MCH 26.8 pg (26-34) MCHC 31.9 L g/dl (32-36) RDW 13.6 % (11.5-14.5) Plt Count 306 k/mm3 (150-375) MPV 9.7 fl (7.4-10.4) Immature Gran % (Auto) 0.5 % (0-0.5) Neut % (Auto) 74.6 H % (45.5-73.1) Lymph % (Auto) 17.3 L % (18.3-44.2) [place] % (Auto) 7.0 % (2.6-8.5) Eos % (Auto) 0.3 % (0-4.4) Baso % (Auto) 0.3 % (0.2-1.2) Lymph # (Auto) 3.16 K/mm3 (0.9-3.2) [place] # (Auto) 1.3 H K/mm3 (0.1-0.6) Eos # (Auto) 0.1 K/mm3 (0-0.3) Baso # (Auto) 0.1 K/mm3 (0.0-0.1) Abs Immat Gran (auto) 0.09 H K/mm3 (0.00-0.031) Absolute Neuts (auto) 13.6 H K/mm3 (1.3-6.7) Absolute Nucleated RBC 0.000 K/mm3 (0.0-0.012) Nucleated RBC % 0.0 % (0.0-0.2) Sodium 139 mmol/L (137-145) Potassium 3.1 L mmol/L (3.4-5.0) Chloride 106 mmol/L (98-107) Carbon Dioxide 22 mmol/L (22-30) Anion Gap 11 mmol/L (4-12) BUN 7 mg/dL (7-17) Creatinine 0.70 mg/dL (0.7-1.0) Estim Creat Clear Calc 102 ml/min Estimated GFR > 60 (59 - ) Glucose 113 H mg/dL (65-110) Calcium 9.3 mg/dL (8.4-10.2) Magnesium 1.7 mg/dL (1.6-2.3) Total Bilirubin 0.7 mg/dL (0.2-1.3) AST 25 U/L (14-36) ALT 14 U/L (6-35) Alkaline Phosphatase 98 U/L (38-126) Total Protein 8.0 g/dL (6.3-8.2) Albumin 4.5 g/dL (3.5-5.1) Lipase 95 U/L (23-300) Urine Color Urine Appearance Urine pH Ur Specific [place] Urine Protein Urine Glucose (UA) Urine Ketones Ur Blood (Man) Urine Nitrate Urine Bilirubin Urine Urobilinogen Leukocyte Esterase Rfl Urine RBC Urine WBC Ur Squamous Epith Cells Urine Bacteria Urine Casts POC Urine HCG, Qual Negative (Negative) 06/30/24 22:36 WBC RBC Hgb Hct MCV MCH MCHC RDW Plt Count MPV Immature Gran % (Auto) Neut % (Auto) Lymph % (Auto) [place] % (Auto) Eos % (Auto) Baso % (Auto) Lymph # (Auto) [place] # (Auto) Eos # (Auto) Baso # (Auto) Abs Immat Gran (auto) Absolute Neuts (auto) Absolute Nucleated RBC Nucleated RBC % Sodium Potassium Chloride Carbon Dioxide Anion Gap BUN Creatinine Estim Creat Clear Calc Estimated GFR Glucose Calcium Magnesium Total Bilirubin AST ALT Alkaline Phosphatase Total Protein Albumin Lipase Urine Color Yellow (Yellow) Urine Appearance Clear (Clear) Urine pH 8.0 (5.0-9.0) Ur Specific [place] > 1.045 H (1.001-1.035) Urine Protein Negative mg/dL (Negative) Urine Glucose (UA) Negative mg/dL (Negative) Urine Ketones 1+ H mg/dL (Negative) Ur Blood (Man) 2+ H (Negative) Urine Nitrate Negative (Negative) Urine Bilirubin Negative (Negative) Urine Urobilinogen 0.2 mg/dL (<2.0) Leukocyte Esterase Rfl Negative KAIA/UL (Negative) Urine RBC 21-50 H /hpf (0-2) Urine WBC 0-5 /hpf (0-3) Ur Squamous Epith Cells None seen /hpf (Few) Urine Bacteria None seen /hpf Urine Casts 0-2 POC Urine HCG, Qual Patient hx anesthesia problems: post op nausea/vomiting Family hx anesthesia problems: none Results Review: All pre-operative results and documents have been reviewed as part of the pre-operative evaluation. [facility] Past Medical History Medical History History of gestational hypertension Surgical History Surgical History History of tonsillectomy History of delivery Family History Family History Grandparent Lung cancer Grandparent Dementia Diabetes mellitus Social History Social History Smoking status: Never smoker Alcohol intake: never Substance use: never Substance use type: does not use Do You Feel Safe in your Home?: Yes Lack of Transportation: No Lack of Food: Never True Current Housing: I Have Housing Concerned About Future Housing: No Difficulty Paying Gas/Electric Bills: No Difficulty Paying for Meds: No Currently Unemployed: No Education: Bachelor's Degree Difficulty w/ Childcare or Family Care: No Spiritual care concerns: No Anes - Eval Final PreProcedure Day of Procedure 07/01/24 07:41 Patient weight: overweight Heart: regular rate and rhythm Lungs: clear to auscultation Airway: Mallampati scale class II Neurological: alert and oriented Last oral intake: >/= 8 hours ASA classification: II Emergent: no Anesthetic plan: proceed Anesthesia type and monitoring: general ETT and standard monitoring Results Review: All pre-operative results and documents have been reviewed as part of the pre-operative evaluation. Informed Consent: The patient's anesthetic plan and its attendant risks and benefits were discussed with the patient/family/POA. Questions were solicited and answers provided to the satisfaction of the patient/family/POA.
--- NOTE | 2024-07-01 07:48 | WPDHPUPDATE1 ---
History and Physical Update Update Date/Time: 07/01/24 07:48 History and Physical has been reviewed, including an updated exam of the patient. There are NO changes in the patient's condition. Risks, benefits, and alternatives have been discussed and questions answered. Patient agrees to proceed with procedure.
[2024-07-01] MEDS: BUPIVACAINE/EPINEPHRINE 0.5% 30 ML VIAL INFILTRATE (08:24)
--- NOTE | 2024-07-01 08:37 | P.OP_ITS ---
Procedure Note - Detailed Date of Procedure 07/01/24 Pre-op Diagnosis Acute appendicitis Post-op Diagnosis Same (Acute appendicitis without perforation or abscess) Procedure Performed Laparoscopic appendectomy Surgeon Az Gonzalez, DO Anesthesia General and Local (0.5% bupivacaine with epinephrine) Indications This is a 33-year-old woman who presented to the emergency department last night with right lower quadrant abdominal pain. She had an elevated white blood count and CT showed evidence of early acute appendicitis. She was admitted for further treatment and started on Zosyn. Discussions were made with the patient about treatment options and decision was made to proceed with laparoscopic appen dectomy, possible open. Findings Laparoscopic appendectomy was performed. The appendix was identified and appeared acutely inflamed and indurated but did not show any evidence of perforation or abscess. There was minimal reactive fluid in the pelvis. The patient also had 1 small adhesive band of omentum up to the lower midline abdomen from her previous . This adhesion was taken down to facilitate identifying the appendix. The base of the appendix appeared healthy and viable. The appendix was removed and sent to the lab for pathology. Description of Procedure Procedure as well as risks, benefits, and alternatives were explained to the patient. The patient agreed to proceed. Written consent was obtained and placed in chart prior to procedure. The patient was brought back to surgical suite. She was placed supine on operating table. Time-out was done to confirm the patient and procedure. The patient was then intubated by the Anesthesia Department. Her abdomen was prepped and draped in sterile fashion using chlorhexidine prep. A 12 mm incision was made at the inferior portion of the umbilicus. Blunt dissection was carried out down to the linea alba. The linea alba was then incised using a 15 blade scalpel. Then bluntly entered into the peritoneal cavity. A 12 mm trocar was then inserted, and carbon dioxide insufflation was used to create a pneumoperitoneum. The camera was inserted and the abdomen was inspected. No immediate abnormalities were identified. The patient was then placed in slight Trendelenburg position and rotated to the left. A 5 mm incision was made in the suprapubic region in midline and a 5 mm trocar was inserted under direct visualization. A 5 mm incision was made in the left lower quadrant and a 5 mm trocar was inserted under direct visualization. The right lower quadrant was carefully inspected. The cecum was identified and then this was traced back to the appendix. The appendix was identified and grasped at the mesoappendix and lifted anteriorly. Careful blunt dissection was carried out at the base of the appendix through the mesoappendix using a [place] grasper. An Endo-OLIVIA 45 mm blue load stapler was then advanced across the base of the appendix and clamped and fired. A white reload was then clamped across the mesoappendix and fired. This freed up our appendix completely. It was then placed in an EndoCatch bag and removed through the umbilical port. The staple lines were then inspected. Hemostasis appeared adequate and the staple lines appeared secure. The area was then irrigated with sterile saline. The pelvis was then carefully inspected and irrigated with sterile saline as well and the remainder of the abdomen was carefully inspected. The patient was then flattened out in bed. One final inspection was made around the abdominal cavity and no other abnormalities were seen. The ports were then removed under direct visualization. The camera was removed and the pneumoperitoneum was released. The fascia of the umbilical incision was reapproximated using an 0 Vicryl [id number] suture. 0.5% bupivacaine with epinephrine was infiltrated locally around each of the incisions. The skin of the incisions was then approximated using 4-0 Monocryl subcuticular suture and Exofin glue was applied on top. The patient was then awakened from anesthesia, extubated, and transferred to Recovery. Estimated Blood Loss 5 Urine Output 0 Pathology Yes (Appendix) Complications No immediate complications Condition Stable Disposition Floor [facility] Billing Surgery - Charge Forward: Surgery Billing
--- NOTE | 2024-07-01 08:39 | P.DS_ITS ---
DS: Admitting Diagnosis Discharge Date 07/01/2024 Admitting Diagnosis Acute appendicitis DS: Discharge Diagnosis Discharge Diagnosis (1) Acute appendicitis: Qualifiers: Acute appendicitis type: with localized peritonitis Appendicitis abscess presence: without abscess Appendicitis gangrene presence: without gangrene Appendicitis perforation presence: without perforation Qualified Code(s): K35.30 - Acute appendicitis with localized peritonitis, without perforation or gangrene Code(s): K35.80 - Unspecified acute appendicitis Status: Acute DS: Summary Hospital Course Reason for hospitalization: Acute appendicitis Hospital Course: This is a 33-year-old woman who presented to the emergency department on 06/30/2024 with right lower quadrant abdominal pain that started earlier that day. She was noted to have an elevated white blood count and CT evidence of acute appendicitis. She was admitted for observation and started on Zosyn. She then underwent laparoscopic appendectomy on 07/01/2024. Surgery was u ncomplicated and she was returned to the surgical floor postoperatively. Her diet and activity were advanced as tolerated. She was discharged home once her pain was adequately controlled, vitals remained stable, she was tolerating her diet, and ambulating in the halls. Status at Discharge Functional status at discharge: independent ambulation Overall status at discharge: patient is progressing back to baseline Time Spent with Patient Time attestation: Total time spent providing and/or coordinating discharge services: Time spent: Less than 30 minutes Exam Const: General: comfortable and no acute distress GI: Inspection: non-distended and incision (Intact with glue) DS: Data Data Completed and Pending Pending studies at discharge: Pending at discharge 07/01/24 08:16 Surgical [PTH] Routine Labs on day of discharge: Labs from last 24 hours 06/30/24 06/30/24 06/30/24 22:36 20:22 19:33 WBC 18.3 H RBC 4.29 Hgb 11.5 L Hct 36.1 L MCV 84.1 MCH 26.8 MCHC 31.9 L RDW 13.6 Plt Count 306 MPV 9.7 Immature Gran % (Auto) 0.5 Neut % (Auto) 74.6 H Lymph % (Auto) 17.3 L [place] % (Auto) 7.0 Eos % (Auto) 0.3 Baso % (Auto) 0.3 Lymph # (Auto) 3.16 [place] # (Auto) 1.3 H Eos # (Auto) 0.1 Baso # (Auto) 0.1 Abs Immat Gran (auto) 0.09 H Absolute Neuts (auto) 13.6 H Absolute Nucleated RBC 0.000 Nucleated RBC % 0.0 Sodium Potassium Chloride Carbon Dioxide Anion Gap BUN Creatinine Estim Creat Clear Calc Estimated GFR Glucose Calcium Magnesium Total Bilirubin AST ALT Alkaline Phosphatase Total Protein Albumin Lipase Urine Color Yellow Urine Appearance Clear Urine pH 8.0 Ur Specific [place] > 1.045 H Urine Protein Negative Urine Glucose (UA) Negative Urine Ketones 1+ H Ur Blood (Man) 2+ H Urine Nitrate Negative Urine Bilirubin Negative Urine Urobilinogen 0.2 Leukocyte Esterase Rfl Negative Urine RBC 21-50 H Urine WBC 0-5 Ur Squamous Epith Cells None seen Urine Bacteria None seen Urine Casts 0-2 POC Urine HCG, Qual Negative 06/30/24 19:32 WBC RBC Hgb Hct MCV MCH MCHC RDW Plt Count MPV Immature Gran % (Auto) Neut % (Auto) Lymph % (Auto) [place] % (Auto) Eos % (Auto) Baso % (Auto) Lymph # (Auto) [place] # (Auto) Eos # (Auto) Baso # (Auto) Abs Immat Gran (auto) Absolute Neuts (auto) Absolute Nucleated RBC Nucleated RBC % Sodium 139 Potassium 3.1 L Chloride 106 Carbon Dioxide 22 Anion Gap 11 BUN 7 Creatinine 0.70 Estim Creat Clear Calc 102 Estimated GFR > 60 Glucose 113 H Calcium 9.3 Magnesium 1.7 Total Bilirubin 0.7 AST 25 ALT 14 Alkaline Phosphatase 98 Total Protein 8.0 Albumin 4.5 Lipase 95 Urine Color Urine Appearance Urine pH Ur Specific [place] Urine Protein Urine Glucose (UA) Urine Ketones Ur Blood (Man) Urine Nitrate Urine Bilirubin Urine Urobilinogen Leukocyte Esterase Rfl Urine RBC Urine WBC Ur Squamous Epith Cells Urine Bacteria Urine Casts POC Urine HCG, Qual Imaging Radiologist's impression: ITS Impressions Abdomen/Pelvis CT 06/30/24 20:52 IMPRESSION: Appendix is dilated to 10 mm with thickening of the wall and minimal periappendiceal fat stranding, consistent with early acute appendicitis Discharge Plan Discharge Attending physician on discharge: Az Lawson Discharging Clinician: Az Lawson Anticipated Discharge Date/Time: 07/01/24 13:00 Activity: other - see discharge instructions Diet: regular Wound Care Instructions: other - see discharge instructions Discharge Instructions: DISCHARGE INSTRUCTION SHEET FOR HERNIA, GALLBLADDER AND APPENDIX SURGERIES DR. LAWSON PATIENT TO TAKE HOME 1. May shower in 24 hours, no soaking in bath x 2weeks. 2. Call office for: * Wound increasingly painful or bleeding * Vomiting * Fever of greater than 101 degrees 3. If no bowel movement for three days, take 1 oz. (30 ml) Milk of Magnesia or MiraLax 17g 1 to 2 times daily. 4. No heavy lifting > 10-15 pounds x weeks for hernia repairs and 2 weeks for laparoscopic cholecystectomy or appendectomy. 5. No driving for 3 days or while taking narcotic pain medications. 6. Ice to surgical site for 48 hours (30 min on, then 30 min off). 7. Up walking 10-30 minutes three times per day. 8. Resume previous home medications. 9. Follow-up 10-14 days in office for wound check or as previously scheduled. ([id number]) 10. Oral pain medications prescription to be sent to pharmacy. Take Tylenol 500mg every 6 hours and Ibuprofen 600mg every 6 hours for the first 2 days, then as needed. 11. NUTRITION: Start out by drinking fluids and increase your diet as tolerated. If you experience nausea, try dry toast, crackers, and 7-UP. If nausea or vomiting persists, contact your surgeon?s office. 12. Gallbladders-Low Fat Diet for 2 weeks (send care note of low fat diet) 13. Inguinal Hernias-wear scrotal support for 48 hours 14. Abdominal Hernias-if sent home with abdominal binder, wear for the first 2 weeks (may remove to shower or at night to sleep). Revised November 2018 Patient Language: German Follow-up/Referrals: Az Lawson, DO [Physician] - Call for Appointment Discharge Medications: New hydrocodone-acetaminophen 5-325 mg tablet 1 tablet PO Q4H PRN (Reason: pain) Qty: 10 0RF Date of admission: 06/30/24 21:40 Primary Care Provider: Jeni,Chilo Foley Admitting Provider: Az Lawson Attending physician on admission: Az Lawson Condition: Improved
[2024-07-01] MEDS: ONDANSETRON INJ 4 MG/2 ML VIAL IV PUSH (08:50)
--- NOTE | 2024-07-01 09:27 | PC.NURSE ---
Returned from OR per [ ]. Report received from [tammy].
[2024-07-01] MEDS: HYDROcodone/acetaminophen (*CRX) 5-325 MG TABLET 1 TAB PO (09:50)
[2024-07-01] MEDS: LACTATED RINGERS 1,000 ML 100 ML IV CONT (09:51)
== END 2024-07-01 13:20 | disposition home or self-care (01) ==
LOC: ANHED 21:39 → ANH3MEDSUR 23:04
PROVIDERS: Admitting Provider Surgery; Emergency Provider Physician Assistant; PCP Family Medicine; Visit Provider Surgery
PROC: 0DTJ4ZZ Resection of Appendix, Percutaneous Endoscopic Approach (ICD-10-PCS; CPT 44970; principal; 2024-07-01 08:00)
DX: K35.80 Unspecified acute appendicitis (principal); E87.6 Hypokalemia
CPT/HCPCS: 44970; 36415; 74177; 80053; 81001; 81025; 83690; 83735; 85025; 87040; 88304; 96361; 96365; 96367; 96375; 99285; A9270; G0378; J1200; J1885; J2003; J2250; J2270; J2405; J2543; J2704; J3010; J3475; J3480; J7030; J7040; J7120; Q9967

== ENCOUNTER 2024-07-14 08:56 | Outpatient (CLI) | payer OTHER, SELFPAY | END 2024-07-14 08:57 | disposition home or self-care (01) | LOC: ANHLAB 08:58 | PROVIDERS: PCP Family Medicine; Visit Provider Obstetrics & Gynecology | DX: N97.0 Female infertility associated with anovulation (principal) | CPT/HCPCS: 36415; 83001 ==

== ENCOUNTER 2024-09-20 10:37 | Inpatient (IN) | payer OTHER, SELFPAY ==
[2024-09-20] VITALS (62 sets, daily range): BP systolic 74–148; BP diastolic 32–133; PULSE 119–149; RESP 11–47; TEMP 37–40; O2SAT 94–100; BMI 29.3
--- NOTE | ~2024-09-20 | XR_ITS ---
Portable chest x-ray Comparison: 09/20/2024 Clinical History: Pneumonia Findings: Left subclavian line in place. Moderate right pleural effusion is significantly increased f rom prior exam with extensive hazy right basilar and right midlung airspace disease. Possible mild gale ziness left lung base. Cardiomediastinal silhouette is stable. Bones and soft tissues are unremarkab le. Impression: Moderate pleural effusion is significantly increased. Mild to moderate probable pulmonary edema pattern. Correlate clinically for pneumonia. Support line, as above. Reviewed, dictated and finalized at location M. Impression: Moderate pleural effusion is significantly increased. Mild to moderate probable pulmonary edema pattern. Correlate clinically for pne umonia. Support line, as above.
--- NOTE | ~2024-09-20 | XR_ITS ---
EXAMINATION: XR abdomen gastric tube insert DATE: 09/21/2024 11:24 INDICATION: Nasogastric tube placement. TECHNIQUE: A semiupright view of the abdomen was obtained. COMPARISON: None. FINDINGS: The lower abdomen is excluded. The nasogastric tube tip is at the gastroesophageal junction . IMPRESSION: 1. Nasogastric tube tip at the gastroesophageal junction. Advancement is recommended. Reviewed, dictated and finalized at location L. IMPRESSION: 1. Nasogastric tube tip at the gastroesophageal junction. Advancement is recomm ended.
--- NOTE | ~2024-09-20 | NM_ITS ---
EXAMINATION: NM lung vent and perfusion DATE: 09/20/2024 15:16 INDICATION: Shortness of breath. TECHNIQUE: 24.1 mCi Xenon-133 was given for ventilation images. 5.5 mCi Tc-99m MAA was administered i ntravenously for perfusion images. Scintigraphic images of the chest were obtained. COMPARISON: Chest single view 09/20/2024, CT abdomen and pelvis 06/30/2024 FINDINGS: Ventilation images demonstrate no defects. Perfusion images demonstrate a large defect in the postero basal segment right lower lobe. IMPRESSION: 1. Intermediate probability for pulmonary embolism. Reviewed, dictated and finalized at location B.
--- NOTE | ~2024-09-20 | XR_ITS ---
EXAMINATION: XR chest 1V portable DATE: 09/20/2024 11:22 INDICATION: Shortness of breath. TECHNIQUE: A single frontal view of the chest was obtained. COMPARISON: CT abdomen and pelvis 06/30/2024 FINDINGS: There is no pneumonia, pleural effusion, or pneumothorax. The heart size is normal. IMPRESSION: 1. No acute cardiopulmonary disease. Reviewed, dictated and finalized at location B.
--- NOTE | ~2024-09-20 | US_ITS ---
EXAMINATION: US venous doppler [facility] DATE: 09/21/2024 13:14 INDICATION: Lower limb swelling. TECHNIQUE: Grayscale ultrasound images without and with compression and Doppler ultrasound images of the bilateral lower extremity veins were obtained. COMPARISON: None. FINDINGS: The visualized portions of right common femoral vein, profunda (deep) femoral vein, femoral vein, pop liteal vein, peroneal veins, posterior tibial veins, and greater saphenous vein outflow are patent. The visualized portions of left common femoral vein, profunda femoral vein, femoral vein, popliteal v ein, peroneal veins, posterior tibial veins, and greater saphenous vein outflow are patent. IMPRESSION: 1. No deep venous thrombosis. Reviewed, dictated and finalized at location L.
--- NOTE | ~2024-09-20 | XR_ITS ---
EXAMINATION: XR abdomen gastric tube rechec DATE: 09/21/2024 11:59 INDICATION: Nasogastric tube advancement. TECHNIQUE: A supine view of the abdomen was obtained. COMPARISON: Abdomen radiograph at 11:14 AM FINDINGS: The lower abdomen and right lateral aspect of the abdomen are excluded. The nasogastric tub e tip is in the stomach. There is a central line tip in right atrium. IMPRESSION: 1. Nasogastric tube tip in the stomach. Reviewed, dictated and finalized at location L.
--- NOTE | ~2024-09-20 | US_ITS ---
EXAMINATION: US renal BI DATE: 09/21/2024 12:20 INDICATION: Acute kidney injury. TECHNIQUE: Multiple ultrasound grayscale images of the kidneys were obtained. COMPARISON: CT abdomen and pelvis 09/20/2024 FINDINGS: The right kidney measures 12.4 x 4.5 x 4.6 cm. The left kidney measures 11.7 x 4.9 x 4.0 cm. The kidn eys demonstrate normal parenchymal echogenicity. There is no hydronephrosis. The bladder is decompres sed by a Castanon catheter. IMPRESSION: 1. Normal kidneys. No hydronephrosis. Reviewed, dictated and finalized at location L.
--- NOTE | ~2024-09-20 | CT_ITS ---
CT chest abdomen pelvis wo con Ordering provider: Paris Mak APRN History: . sepsis . Comparison: None. Technique: CT chest without IV contrast. CT abdomen and pelvis without oral and IV contrast. Radiatio n reduction technique utilized. The dose-length product was 687.72 mGy-cm. FINDINGS: The study is limited due to lack of IV contrast. CHEST: --VISUALIZED THORACIC INLET: Normal as visualized. Left central line with the tip overlying the superior vena cava. --MEDIASTINUM: Aorta/coronary arteries: The thoracic aorta is normal. Heart/other: The heart is not enlarged. Lymph nodes: No mediastinal or hilar adenopathy. Precarinal lymph node measuring 1.2 cm is noted. Sma ll prevascular lymph nodes are noted. --LUNGS: Right pleural effusion. Right basilar atelectasis versus pneumonia. No pulmonary nodules or masses. No pneumothorax. --MUSCULOSKELETAL: Soft tissues: The superficial soft tissues are normal. Bones: Normal spine. ABDOMEN/PELVIS: --MUSCULOSKELETAL: Bones: Normal spine. Superficial soft tissues: The superficial soft tissues are normal. --UPPER ABDOMINAL ORGANS: Liver: Normal. Gallbladder: Normal. Spleen: Normal. Stomach/duodenum: Normal. Pancreas: Normal. Adrenals: Normal. Kidneys: Normal. --PELVIC ORGANS: The bladder is normal. No bladder stones. --BOWEL AND MESENTERY: Colon: No evidence of diverticulitis. Fluid is seen in the large bowel suggestive of enteritis versus diarrhea. The appendix is not demonstrated. Small Bowel: Normal. No obstruction. Peritoneum/mesentery: No free air or free fluid. No mesenteric lymphadenopathy. Small mesenteric lymp h nodes are noted. --RETROPERITONEUM: Normal aorta. No retroperitoneal lymphadenopathy. IMPRESSION: CHEST: 1. Right pleural effusion with right basal pneumonia. 2. One 1.2 cm lymph node anterior to the maria l. ABDOMEN/PELVIS: 1. No evidence of appendicitis, diverticulitis or intestinal obstruction. 2. Fluid in the large bowel suggestive of diarrhea versus enteritis. Clinical correlation advised. Reviewed, dictated and finalized at location A.
--- NOTE | ~2024-09-20 | XR_ITS ---
EXAMINATION: XR chest ET placement DATE: 09/21/2024 11:24 INDICATION: Intubation. TECHNIQUE: A single frontal view of the chest was obtained. COMPARISON: Chest single view at 8:16 AM, chest CT 09/20/2024 FINDINGS: There are airspace opacities in right lung with a perihilar and lower lung predominance. Th ere are airspace opacities in left lower lobe. There is a moderate-sized right pleural effusion. No p neumothorax. The heart size is normal. A left subclavian central venous catheter is seen with tip at the superior cavoatrial junction. The nasogastric tube tip is at the gastroesophageal junction. The e ndotracheal tube tip is 2.5 cm above the maria l. IMPRESSION: 1. Stable airspace opacities in right lung and left lower lobe, consistent with pneumonia. 2. Stable moderate-sized right pleural effusion. 3. Nasogastric tube tip at the gastroesophageal junction. Advancement is recommended. Reviewed, dictated and finalized at location L. IMPRESSION: 1. Stable airspace opacities in right lung and left lower lobe, consistent with pneumonia. 2. Stable moderate-sized right pleural effusion. 3. Nasogastric tube tip at the gastroesophageal junction. Advancement is recomm ended.
--- NOTE | ~2024-09-20 | XR_ITS ---
Portable chest x-ray Comparison: 09/21/2024 Clinical History: Respiratory failure Findings: Endotracheal tube, NG tube, and left subclavian line are in place. Moderate to large right pleural effusion present with hazy airspace disease in the aerated right lung. Left lung clear. Car diomediastinal silhouette is stable. Bones and soft tissues are unremarkable. Impression: Moderate to large right pleural effusion with right-sided pulmonary edema/atelectasis versus pneumoni a. Left lung essentially clear. Support tubes, as above. Reviewed, dictated and finalized at location . Impression: Moderate to large right pleural effusion with right-sided pulmonary edema/atele ctasis versus pneumonia. Left lung essentially clear. Support tubes, as above.
--- NOTE | ~2024-09-20 | XR_ITS ---
XR chest port-a-cath/central Ordering provider: Steven Hayward MD History: 34 years Female with . post central line placement . Comparison: September 20, 2024 FINDINGS: MEDIASTINUM: The cardiac silhouette is not enlarged. Left central line with the tip overlying the sup erior vena cava. LUNGS: No effusions or pneumothorax. Bilateral basal opacification suggestive of atelectasis versus p neumonia. OTHER: No free air under the diaphragm. IMPRESSION: Bilateral basal pneumonia. Left central line with the tip overlying superior vena cava. Reviewed, dictated and finalized at location A.
--- NOTE | 2024-09-20 10:43 | ECG_ITS ---
Test Date: 2024-09-20 10:47:24 Measurements Intervals [place] Rate: 146 P: 68 MI: 132 QRS: 74 QRSD: 96 T: 52 QT: 326 QTc: 509 Interpretive Statements SINUS TACHYCARDIA NONSPECIFIC ST AND T-WAVE ABNORMALITY No previous ECG available for comparison Electronically Signed On 09-21-2024 16:37:25 CDT by Reilly Fajardo M.D.
--- NOTE | 2024-09-20 10:59 | ED.GENADULT ---
HPI - General Adult General Chief complaint: Shortness of Breath/Dyspnea Stated complaint: sob, flu + Time Seen by Provider: 09/20/24 10:59 Source: patient Mode of arrival: ambulatory Related Data Allergies Allergy/AdvReac Type Severity Reaction Status Date / Time No Known Allergies Allergy Verified 09/20/24 11:03 [facility] Past Medical History Medical History (Updated 09/20/24 @ 16:18 by Mark Jeffrey MD) History of gestational hypertension Surgical History Surgical History (Updated 07/20/24 @ 11:04 by Anna Lomeli MA) History of laparoscopic appendectomy 07/01/[address] Gonzalez History of tonsillectomy History of delivery Family History Family History Grandparent Lung cancer Grandparent Dementia Diabetes mellitus Social History Social History Smoking status: Never smoker Alcohol intake: never Substance use: never Substance use type: does not use Do You Feel Safe in your Home?: Yes Lack of Transportation: No Lack of Food: Never True Current Housing: I Have Housing Concerned About Future Housing: No Difficulty Paying Gas/Electric Bills: No Difficulty Paying for Meds: No Currently Unemployed: No Education: Bachelor's Degree Difficulty w/ Childcare or Family Care: No Spiritual care concerns: No Course Vital Signs Vital signs: Vital Signs Temperature 37.0 C 09/20/24 10:55 Pulse Rate 149 H 09/20/24 10:55 Respiratory Rate 23 H 09/20/24 10:55 Blood Pressure 95/40 L 09/20/24 10:55 Pulse Oximetry 99 09/20/24 10:55 Temperature 37.0 C 09/20/24 10:55 Pulse Rate 128 H 09/20/24 11:21 Respiratory Rate 23 H 09/20/24 10:55 Blood Pressure 95/40 L 09/20/24 10:55 Pulse Oximetry 100 09/20/24 11:22 Oxygen Delivery Room Air 09/20/24 11:22 Medical Decision Making MDM Narrative Medical decision making narrative: 34 YEARS OLD WHITE FEMALE TESTED POSITIVE FOR FLU RECENTLY, CAME WITH SHORTNESS OF BREATH, BODY ACHES VITAL SIGNS SHOWING BLOOD PRESSURE 95/40, HEART RATE 149 PHYSICAL EXAMINATION SHOWING ILL LOOKING PATIENT, INTERMITTENT COUGHING, TACHYCARDIA BLOOD WORKUP TODAY INCLUDES CBC, CMP, TROPONIN, D-DIMER SHOWED WBC 28.5 HIGH LIKELY SECONDARY TO REACTIVE LEUKOCYTOSIS, INSIDE 0.8% CONSISTENT WITH VIRAL INFECTION D-DIMER 1.3, ANION GAP 17, BUN 22, CREATININE 2.0 RESPIRATORY PANEL POSITIVE FOR INFLUENZA A CHEST X-RAY SHOWED NO ACUTE ABNORMALITY EKG SHOWED SINUS TACHYCARDIA AT 146 BEATS PER MINUTE V/Q SCAN POSITIVE FOR INTERMEDIATE PROBABILITY. PATIENT STARTED ON ELIQUIS BY THE NURSE PRACTITIONER ADMIT TO [facility] DIAGNOSIS INFLUENZA A, LISANDRO, PULMONARY EMBOLISM-SUSPECTED Differential Diagnosis Differential Diagnosis: ABOVE Vital Signs Vital Signs: Vital Signs Temperature 37.0 C 09/20/24 10:55 Pulse Rate 149 H 09/20/24 10:55 Respiratory Rate 23 H 09/20/24 10:55 Blood Pressure 95/40 L 09/20/24 10:55 Pulse Oximetry 99 09/20/24 10:55 Temperature 37.0 C 09/20/24 10:55 Pulse Rate 128 H 09/20/24 11:21 Respiratory Rate 23 H 09/20/24 10:55 Blood Pressure 95/40 L 09/20/24 10:55 Pulse Oximetry 100 09/20/24 11:22 Oxygen Delivery Room Air 09/20/24 11:22 Lab Data 09/20/24 11:01 09/20/24 11:01 Labs: Lab Results 09/20/24 09/20/24 Range/Units 11:01 11:05 WBC 28.5 H (4.5-10.0) K/mm3 RBC 4.93 (4.2-5.4) M/mm3 Hgb 12.9 (12.0-15.0) g/dL Hct 40.4 (37.0-47.0) % MCV 81.9 (80-100) fl MCH 26.2 (26-34) pg MCHC 31.9 L (32-36) g/dl RDW 13.2 (11.5-14.5) % Plt Count 241 (150-375) k/mm3 MPV 9.9 (7.4-10.4) fl Immature Gran % (Auto) 2.1 H (0-0.5) % Neut % (Auto) 95.1 H (45.5-73.1) % Lymph % (Auto) 0.8 L (18.3-44.2) % Dawson % (Auto) 1.4 L (2.6-8.5) % Eos % (Auto) 0.1 (0-4.4) % Baso % (Auto) 0.5 (0.2-1.2) % Lymph # (Auto) 0.24 L (0.9-3.2) K/mm3 Dawson # (Auto) 0.4 (0.1-0.6) K/mm3 Eos # (Auto) 0.0 (0-0.3) K/mm3 Baso # (Auto) 0.1 (0.0-0.1) K/mm3 Abs Immat Gran (auto) 0.60 H (0.00-0.031) K/mm3 Absolute Neuts (auto) 27.0 H (1.3-6.7) K/mm3 Absolute Nucleated RBC 0.000 (0.0-0.012) K/mm3 Nucleated RBC % 0.0 (0.0-0.2) % D-Dimer 1.34 H (<0.48) ug/mL Sodium 136 L (137-145) mmol/L Potassium 3.5 (3.4-5.0) mmol/L Chloride 94 L (98-107) mmol/L Carbon Dioxide 25 (22-30) mmol/L Anion Gap 17 H (4-12) mmol/L BUN 22 H D (7-17) mg/dL Creatinine 2.07 H (0.7-1.0) mg/dL Estim Creat Clear Calc Not Reportable Estimated GFR 27 L (59 - ) Glucose 119 H (65-110) mg/dL Calcium 9.0 (8.4-10.2) mg/dL Total Bilirubin 1.4 H (0.2-1.3) mg/dL AST 27 (14-36) U/L ALT 21 (6-35) U/L Alkaline Phosphatase 97 (38-126) U/L Total Protein 8.0 (6.3-8.2) g/dL Albumin 4.4 (3.5-5.1) g/dL Influenza A (RT-PCR) Positive A (Negative) Influenza B (RT-PCR) Negative (Negative) RSV (RT-PCR) Negative (Negative) SARS-CoV-2 RNA (RT-PCR) Negative (Negative) Imaging Data Radiologist's impression: Impressions Chest X-Ray 09/20/24 11:33 IMPRESSION: 1. No acute cardiopulmonary disease. Pulmonary Perfusion Imaging 09/20/24 15:19 IMPRESSION: 1. Intermediate probability for pulmonary embolism. ECG Data EKG #1: Attestation: I personally reviewed and interpreted this ECG as follows: ECG completion date: 09/20/24 Interpretation: SINUS TACHYCARDIA AT 142 BEATS PER MINUTE, NONSPECIFIC ST T-WAVE ABNORMALITY, ABNORMAL RHYTHM EKG, NO PREVIOUS EKG AVAILABLE FOR COMPARISON Critical Care Time Critical Care Time Critical Care Time: Yes Total Critical Care Time: 30 Discharge Plan Discharge Clinical Impression: Pulmonary embolism, Influenza A, LISANDRO (acute kidney injury) Patient Disposition: Still a Patient Condition: Stable Additional Instructions: ADMIT TO HOSPITALIST Patient Language: Citizen Of The [place] Prescriptions: No Action hydrocortisone 2.5 % cream 1 applic topical BID PRN (Reason: rash) Qty: 30 0RF Follow-up/Referrals: Jeni,Chilo Foley MD [Primary Care Provider] -
[2024-09-20] MEDS: SODIUM CHLORIDE 0.9% IV 1,000 ML 999 ML IV CONT ×4 (11:04→19:02)
[2024-09-20] MEDS: KETOROLAC 30 MG/ML VIAL (*BKC) IV PUSH (11:04)
[2024-09-20 11:09] LABS: Basophils Absolute Auto 0.1 K/mm3 (0.0-0.1); Basophils Percent Auto 0.5 % (0.2-1.2); Eosinophils Percent Auto 0.1 % (0-4.4); Hematocrit 40.4 % (37.0-47.0); Hemoglobin 12.9 g/dL (12.0-15.0); Immature Granulocyte Percent A 2.1 % (0-0.5); Lymphocytes Absolute Auto 0.24 K/mm3 (0.9-3.2); Lymphocytes Percent Auto 0.8 % (18.3-44.2); Mean Corpuscular HGB Conc 31.9 g/dl (32-36); Mean Corpuscular Hemoglobin 26.2 pg (26-34); Mean Corpuscular Volume 81.9 fl (80-100); Mean Platelet Volume 9.9 fl (7.4-10.4); Monocytes Absolute Auto 0.4 K/mm3 (0.1-0.6); Monocytes Percent Auto 1.4 % (2.6-8.5); Neutrophils Percent Auto 95.1 % (45.5-73.1); Platelet Count Result 241 k/mm3 (150-375); Red Blood Count 4.93 M/mm3 (4.2-5.4); Red Cell Distribution Width 13.2 % (11.5-14.5); White Blood Count 28.5 K/mm3 (4.5-10.0)
[2024-09-20] MEDS: ONDANSETRON INJ 4 MG/2 ML VIAL IV PUSH ×2 (11:12→14:43)
[2024-09-20] MEDS: ACETAMINOPHEN 325 MG TABLET 650 MG PO ×2 (11:13→16:54)
[2024-09-20 11:21] LABS: Alanine Aminotransferase 21 U/L (6-35); Albumin Level 4.4 g/dL (3.5-5.1); Alkaline Phosphatase 97 U/L (38-126); Anion Gap 17 mmol/L (4-12); Aspartate Amino Transferase 27 U/L (14-36); Bilirubin,Total 1.4 mg/dL (0.2-1.3); Blood Urea Nitrogen 22 mg/dL (7-17); Carbon Dioxide 25 mmol/L (22-30); Chloride 94 mmol/L (98-107); Estimated Glomerular Filt Rate 27; Glucose 119 mg/dL (65-110); Potassium 3.5 mmol/L (3.4-5.0); Sodium 136 mmol/L (137-145)
[2024-09-20 11:46] LABS: Influenza A QL RT-PCR Positive (Negative); Influenza B QL RT-PCR Negative (Negative); RSV RNA, RT-PCR Negative (Negative); SARS-CoV-2 RNA PCR Negative (Negative)
[2024-09-20 12:15] LABS: D Dimer 1.34 ug/mL (<0.48)
--- OUTSIDE RECORDS SUMMARY | 2024-09-20 12:18 | XMS_ITS | Referral Summary ---
Author Organization [facility] Address [address] [place] [phone] Care Team Providers Care Tin Cutter Name Role Phone Chilo Ngo MD Primary Care Provider + Encounters Date Type Department Care Team Description 09/20/2024 Nurse Triage [facility] Primary Care [address] [place] [phone] Chilo Ngo MD 09/18/2024 9:45 AM CDT Office Visit [facility] Primary Care [address] [place] [phone] Chilo Ngo MD Acute cough (Primary Dx); Influenza A 06/30/2024 Orders Only [facility] Health Information Management [address] [place], [place] [id number] Scanning, Provider 06/30/2024 Nurse Triage [facility] Primary Care [address] [place] [phone] Chilo Ngo MD from Last 3 Months Allergies No known active allergies Medications oseltamivir (TAMIFLU) 75 mg capsuleIndicati ons:Influenza Take 1 capsule (75 mg total) by mouth 2 (two) times a day for 5 days 10 capsule 09/18/2024 Active Active Problems Problem Noted Date Diagnosed Date Neck muscle spasm 02/01/2024 Assessment & Plan (02/01/2024 9:52 AM CDT): - NSAIDS, home PT - if no improvement will send to formal PT, add mary lou Annual physical exam 01/12/2023 Overview (02/01/2024): Chronic Medical Conditions: None Health Maintenance: - Tobacco history: Never used - Exercise: walks - Pap (21-65): 04/2022 - nml - Lipid: 01/12/23 Specialists Involved in Care: - landscape engineer - Marybeth, Dr Butcher Assessment & Plan (02/01/2024 9:52 AM CDT): - Reviewed with the patient BMI, blood pressure, diet, exercise, and encouraged healthy lifestyle choices. - Screened for high risk behaviors, diet and exercise habits, and symptoms of depression. - encouraged regular exercise and weight loss Assessment & Plan (01/12/2023 9:00 AM CDT): - Reviewed with the patient BMI, blood pressure, diet, exercise, and encouraged healthy lifestyle choices. - Screened for high risk behaviors, diet and exercise habits, and symptoms of depression. - check screening labs - encouraged regular exercise and weight loss Immunizations Immunization Administration Dates Next Due Influenza, Quadrivalent, Peggy l Culture-based MDCK, Preservative Free, Antibiotic Free, Intramuscular 05/14/2021 Influenza, Quadrivalent, Split, Intramuscular Influenza, Quadrivalent, Spl it, Preservative Free, Intramuscular 05/30/2023,05/02/2020 Influenza, Trivalent, Cell C ulture-based MDCK, Preservative Free, Antibiotic Free, Intramuscular 07/02/2024 Influenza, Unspecified 04/10/2022 Tdap 09/17/2021,10/14/2018 Social History Tobacco Use Types Packs/Day Years Used Date Smoking Tobacco: Never Smokeless Tobacco: Never AUDIT-C Answer Date Recorded Q1: How often do you have a drink containing alc ohol? 2-4 times a month 09/18/2024 Q2: How many drinks containi ng alcohol do you have on a typical day when you are drinking? 1 or 2 09/18/2024 Q3: How often do you have si x or more drinks on one occasion? 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 Gender Identity Female 01/06/2023 8:24 AM CDT Sexual Orientation Straight 01/06/2023 8: 24 AM CDT Last Filed Vital Signs Vital Sign Reading Time Taken Comments Blood Pressure 106/68 09/18/2024 9:42 AM CDT Pulse 115 09/18/2024 9:42 AM CDT Temperature 37.6 C (99.6 F) 09/18/2024 9:42 AM CDT Respiratory Rate 20 09/18/2024 9:42 AM CDT Oxygen Saturation 97% 09/18/2024 9:42 AM CDT Inhaled Oxygen Concentration - - Weight 77.9 kg (171 lb 11.2 oz) 09/18/2024 9:42 AM CDT Height 165.7 cm (5' 5.25 ) 09/18/2024 9:42 AM CD T Body Mass Index 28.35 09/18/2024 9:42 AM CDT Plan of Treatment Not on file Procedures Procedure Name Priority Date/Time Associated Diagnosis Comments POC INFLUENZA A/B, COVID-19 ANTIGEN Routine 09/18/2024 10:06 AM CDT Acute cough SCAN - RADIOLOGY/IMAGING 06/30/2024 HM PAP SMEAR WITH HPV Routine 05/02/2023 9:45 AM CDT from Last 3 Months or Most Recently Relevant to Health Maintenance Results * (ABNORMAL) POC Influenza A/B, COVID-19 antigen (09/18/2024 10:06 AM CDT) Influenza A Ag, POC Positive(A) Negative Influenza B Ag, POC Negative Negative COVID-19 Ag POC Presumptive Negative Presumptive Negative, Invalid Nasal 09/18/2024 10:0 6 AM CDT Chilo Ngo MD POINT OF CARE TEST ORDER SUNG Final Result * SCAN - RADIOLOGY/IMAGING (06/30/2024) Anatomical Region Laterality Modality Other us Provider Scanning Final Result * HM PAP SMEAR WITH HPV (05/02/2023 9:45 AM CDT) Scribed Pap Smear w/HPV Normal Historical Provider HEALTH MAINTENANCE Final Result from Last 3 Months or Most Recently Relevant to Health Maintenance Additional Health Concerns Infection Onset Date Last Indicated Influenza, adult 09/18/2024 09/18/2024 Insurance [employer] [facility] Care Teams Tin Cutter Relationship Specialty Start Date End Date Chilo Ngo MD [address] [id number] PCP - General Family Medicine 01/12/23
--- OUTSIDE RECORDS SUMMARY | 2024-09-20 12:18 | XMS_ITS | Clinical Summary ---
Author Organization [facility] Address [address] [place] [phone] Care Team Providers Care Tallow Refiner Name Role Phone Chilo Ngo MD Primary Care Provider + Allergies No known active allergies Medications oseltamivir (TAMIFLU) 75 mg capsuleIndicati ons:Influenza Take 1 capsule (75 mg total) by mouth 2 (two) times a day for 5 days 10 capsule 09/18/2024 5 Active Active Problems Problem Noted Date Diagnosed Date Neck muscle spasm 02/01/2024 Assessment & Plan (02/01/2024 9:52 AM CDT): - NSAIDS, home PT - if no improvement will send to formal PT, add robaxin Annual physical exam 01/12/2023 Overview (02/01/2024): Chronic Medical Conditions: None Health Maintenance: - Tobacco history: Never used - Exercise: walks - Pap (21-65): 04/2022 - nml - Lipid: 01/12/23 Specialists Involved in Care: - leather goods assembler - Dr Hadley Rueda Assessment & Plan (02/01/2024 9:52 AM CDT): [...] - encouraged regular exercise and weight loss Encounters Date Type Department Care Team Description 09/20/2024 Nurse Triage [facility] Primary Care [address] [place] [phone] Chilo Ngo MD 09/18/2024 9:45 AM CDT Office Visit [facility] Primary [facility] [address] [place] [phone] Chilo Ngo MD Acute cough (Primary Dx); Influenza A 06/30/2024 Orders Only [facility] Health Information Management [address] [place] [address] Scanning, Provider 06/30/2024 Nurse Triage [facility] Primary [facility] [address] [place] [phone] Chilo Ngo MD from Last 3 Months Immunizations Immunization Administration Dates Next Due Influenza, Quadrivalent, Peggy l Culture-based MDCK, Preservative Free, Antibiotic Free, Intramuscular 05/14/2021 Influenza, Quadrivalent, Split, Intramuscular Influenza, Quadrivalent, Spl it, Preservative Free, Intramuscular 05/30/2023,05/02/2020 Influenza, Trivalent, Cell C ulture-based MDCK, Preservative Free, Antibiotic Free, Intramuscular 07/02/2024 Influenza, Unspecified 04/10/2022 Tdap 09/17/2021,10/14/2018 Surgical History Surgery Date Site/Laterality Comments SECTION 11/29/18 & 10/27/21 TONSILLECTOMY 07/11/2010 - 07/10/2011 Family History Medical History Relation Name Comments No Known Problems Father Diabetes Maternal Grandmother Elvie Rao No Known Problems Mother Diabetes Mother's Brother Tae Rao Cancer Mother's Sister Parag Osman Cancer Paternal Grandfather Sharad Frank Relation Name Status Comments Father Alive Maternal Grandmother Elvie Rao Mother Alive Mother's Brother Tae Rao Mother's Sister Parag Osman Paternal Grandfather Sharad Frank Social History Tobacco Use Types Packs/Day Years [...] on file 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 Gender Identity Female 01/06/2023 8:24 AM CDT Sexual Orientation Straight 01/06/2023 8: 24 AM CDT Obstetrics History Last Filed Vital Signs Vital Sign Reading [...] 09/18/2024 9:42 AM CDT Plan of Treatment Health Maintenance Due Date Last Done Comments Hepatitis C Screening 1990 Varicella Vaccines (1 of 2 - 13+ 2-dose series) 2003 Hepatitis B Screening 2008 Covid-19 Vaccine ( season) 2024 08/01/2021, 12/19/2020, 11/21/2020 Depression Screening 01/31/2025 02/01/2024, 01/13/20 Regular Well Visit/Exam 18-64 01/31/2025 02/01/2024, 01/12/2023 Cervical Cancer Screening 05/02/2026 05/02/2023, DTaP/Tdap/Td Vaccine (3 - Td or Tdap) 09/18/2031 09/17/2021, 10/14/2018 Influenza Vaccine Completed 07/02/2024, , 04/10/2022, Additional history exists HPV Vaccines Aged Out No longer eligi ble based on patient's age to complete this topic Pneumococcal vaccine <65 Aged Out No longer eligible based on patient's age to complete this topic Procedures Procedure Name Priority Date/Time Associated Diagnosis [...] RADIOLOGY/IMAGING (06/30/2024) Anatomical Region Laterality Modality Other Provider Scanning Final Result * HM PAP SMEAR WITH HPV (05/02/2023 9:45 AM CDT) Scribed Pap Smear w/HPV Normal Michael Provider HEALTH MAINTENANCE Final Result from Last 3 Months or Most Recently Relevant to Health Maintenance Additional Health Concerns Infection Onset Date Last Indicated Influenza, adult 09/18/2024 09/18/2024 Insurance [facility] HMO/PPO Address: [address] [address] [place] [address] Care Teams Tallow Refiner Relationship Specialty Start Date End Date Chilo Ngo MD [address] [place] [id number] PCP - General Family Medicine 01/12/23
--- OUTSIDE RECORDS SUMMARY | 2024-09-20 12:18 | XMS_ITS | Encounter Summary ---
Author Organization [facility] Healthcare Address [address] [place] [address] Care Team Providers Care Warm In Name Role Phone Chilo Ngo MD Primary Care Provider + Reason for Visit * Reason Onset Date Comments Medication Reaction 09/20/2024 Encounter Details Date Type Department Care Team ([facility] st Contact Info) Description 09/20/2024 Nurse Triage [facility] Primary Care [address] [phone] Chilo Ngo MD [address] [facility] [address] [place] [address] Social History Tobacco Use Types Packs/Day Years [...] on file 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 Patient reports constant upper abdominal pain on the right side near the ribs that started last night 09/19/2024 with vomiting. Four episodes ofdiarrhea this morning. symptoms started after taking Tamiflu. Pt reports that she is unable to tolerate anything PO due to the n/v/d. Inquiring if she should stop the Tamiflu? This RN's opinion is I'm unsure if patient should proceed to ED OR patient may be appropriate for UCC OR patient may be appropriate for office visit. RN does not see appointment availability in the office today. Patient seems agreeable with ED/UCC/office visit disposition. RN guideline recommends Go to ED/UCC or Office with PCP Approval. Do you advise ED, UCC, office visit or other care recommendations? Provider contacted via secure chat for ED disposition consult. Recommendation from provider:No response/sent to ED AC convention worker called patient and spoke with spouse David. Advised he take the patient to UC or ED. David states that patient now has increased shortness of breath and they are going to go to the ED. Patient is going to [facility], closest to her home. Encounter routed to the clinical pool as an I Reason for Disposition Constant abdominal pain lasting > 2 hours Protocols used: [id number] * Telephone Encounter - Aisha Luke RN - 09/20/2024 9:23 AM CDT Regarding: diarrhea (started after 09/18/24 appt) fever, cough, moderate body aches, congestion, headaches ----- Message from Carmela Ji sent at 09/20/2024 9:18 AM CDT ----- Symptom Based Call Chief Complaint(s): diarrhea (started after 09/18/24 appt) fever, cough, moderate body aches, congestion, headaches Duration: 09/14/24 What type of symptom(s) is the patient experiencing? Non-Emergent. Is this a new or reoccurring symptom(s)? new What have you tried to help your symptom(s)? Tamiflu, Ibuprofen, Dayquil Why was appointment not scheduled? Requesting advice from clinical steamboat pilot. Additional Comments: Asking can pt stop Tamiflu since diarrhea has occurred? Does message need to be routed? Yes-Action Needed documented in this encounter Plan of Treatment Not on file documented as of this encounter Visit Diagnoses Not on filedocumented in this encounter Additional Health Concerns Infection Onset Date Last Indicated Resolved Time Influenza, adult 09/18/2024 09/18/2024 documented as of this encounter Care Teams Warm In Relationship Specialty Start Date End Date Chilo Ngo MD [address] [place] [phone] PCP - General Family Medicine 01/12/23 documented as of this encounter
--- OUTSIDE RECORDS SUMMARY | 2024-09-20 12:18 | XMS_ITS | Encounter Summary ---
Author Organization [facility] Healthcare Address [address] [place] [address] Care Team Providers Care Pressroom Worker Name Role Phone Chilo Ngo MD Primary Care Provider + Encounter Details Date Type Department Care Team (Late st Contact Info) Description 06/30/2024 Orders Only [facility] Health Information Management [address] [place] [phone] Scanning, Provider Social History Tobacco Use Types Packs/Day Years Used Date Smoking Tobacco: Never Smokeless Tobacco: Never AUDIT-C Answer Date Recorded Q1: How often do you have a drink containing alc ohol? 2-4 times a month 01/12/2023 Q2: How many drinks containi ng alcohol do you have on a typical day when you are drinking? 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 Gender Identity Female 01/06/2023 8:24 AM CDT Sexual Orientation Straight 01/06/2023 8: 24 AM CDT documented as of this encounter Plan of Treatment Not on file documented as of this encounter Procedures Procedure Name Priority Date/Time Associated Diagnosis Comments SCAN - RADIOLOGY/IMAGING 06/30/2024 documented in this encounter Results * SCAN - RADIOLOGY/IMAGING (06/30/2024) Anatomical Region Laterality Modality Other us Provider Scanning Final Result documented in this encounter Visit Diagnoses Not on filedocumented in this encounter Additional Health Concerns Infection Onset Date Last Indicated Resolved Time COVID: Suspected 09/18/2024 09/18/2024 09/18/2024 10:07 AM CDT Influenza, adult 09/18/2024 09/18/2024 documented as of this encounter Care Teams Pressroom Worker Relationship Specialty Start Date End Date Chilo Ngo MD [address] [place] [id number] PCP - General Family Medicine 01/12/23 documented as of this encounter
--- OUTSIDE RECORDS SUMMARY | 2024-09-20 13:03 | XMS_ITS | Encounter Summary ---
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 Advised he take the patient to UC or ED. David states that patient now has increased shortness of breath and they are going to go to the ED. Patient is going to [facility], closest to her home. Encounter routed to the clinical pool as an I Reason for Disposition Constant abdominal pain lasting > 2 hours Protocols used: [id number] * Telephone Encounter - Aisha Luke RN [...] appointment not scheduled? Requesting advice from clinical teamsite developer. Additional Comments: Asking can pt stop Tamiflu since diarrhea has occurred? Does message need to be routed? Yes-Action Needed documented in this encounter Plan of Treatment Not on file documented as of this encounter Visit Diagnoses Not on filedocumented in this encounter Additional Health Concerns Infection Onset Date Last Indicated Resolved Time Influenza, adult 09/18/2024 09/18/2024 documented as of this encounter Care Teams Buffer Copper Relationship Specialty Start Date End Date Chilo Ngo MD [address] [place] [phone] PCP - General Family Medicine 01/12/23 documented as of this encounter
--- OUTSIDE RECORDS SUMMARY | 2024-09-20 13:03 | XMS_ITS | Clinical Summary ---
Author Organization [facility] Address [address] [place] [phone] Care Team Providers Care Oil Rig Roughneck Name Role Phone Chilo Ngo MD Primary [...] Lipid: 01/12/23 Specialists Involved in Care: - roll sheeting cutter - Dr Hadley Rueda Assessment & Plan [...] Department Care Team Description 09/20/2024 Nurse Triage [facility] [address] [place] [phone] Chilo Ngo MD 09/18/2024 9:45 AM CDT Office Visit [facility] [address] [place] [phone] Chilo Ngo MD Acute cough (Primary Dx); Influenza A 06/30/2024 Orders Only [facility] Health Information Management [address] [place] [address] Scanning, Provider 06/30/2024 Nurse Triage [facility] [address] [place] [phone] Chilo Ngo MD from Last 3 Months [...] on file 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
--- OUTSIDE RECORDS SUMMARY | 2024-09-20 13:03 | XMS_ITS | Referral Summary ---
Author Organization [facility] Address [address] [place] [phone] Care Team Providers Care Muffler Mechanic Name Role Phone Chilo Ngo MD Primary Care Provider + Encounters Date Type Department Care Team Description 09/20/2024 Nurse Triage [facility] [address] [place] [phone] Chilo Ngo MD 09/18/2024 9:45 AM CDT Office Visit [facility] Primary [facility] [address] [place] [phone] Chilo Ngo MD Acute cough (Primary Dx); Influenza A 06/30/2024 Orders Only [facility] Health Information Management [address] [place], [place] [phone] Scanning, Provider 06/30/2024 Nurse Triage [facility] Primary [facility] [address] [place] [phone] Chilo Ngo MD from Last 3 [...] Lipid: 01/12/23 Specialists Involved in Care: - bread distributor - Marybeth, Dr Butcher Assessment & Plan [...] on file 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
--- OUTSIDE RECORDS SUMMARY | 2024-09-20 13:03 | XMS_ITS | Encounter Summary ---
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
--- NOTE | 2024-09-20 14:00 | PC.NURSE ---
Dr Jeffrey anticipating admission, ordered VQ scan - awaiting those results before admission orders will be placed
[2024-09-20] MEDS: MORPHINE SULFATE (*CRX) 4 MG/ML INJ IV PUSH (14:43)
--- NOTE | 2024-09-20 16:00 | PC.NURSE ---
Spoke with Dr Jeffrey about placing orders for admission. VQ scan is completed and resulted.
--- NOTE | 2024-09-20 16:15 | PC.NURSE ---
Called Agronomist for admit - Tele bed ordered.
--- NOTE | 2024-09-20 16:22 | ECG_ITS ---
Test Date: 2024-09-20 16:37:39 Measurements Intervals [place] Rate: 140 P: 63 MO: 133 QRS: 58 QRSD: 83 T: 36 QT: 329 QTc: 502 Interpretive Statements SINUS TACHYCARDIA NONSPECIFIC ST AND T-WAVE ABNORMALITY Compared to ECG 09/20/2024 10:47:24 NO SIGNIFICANT CHANGES Electronically Signed On 09-21-2024 16:46:12 CDT by Reilly Fajardo M.D.
--- NOTE | 2024-09-20 16:25 | PC.NURSE ---
Spoke with Supervisor Enrobing in regards to Tele admission orders and possibly need of IMU admit. Pt vital signs are abnormal. EDP made aware of heart rate 130-140. Spoke with Kait STRANGE, primary RN of pt to assess if pt has a fever or the reason for the high heart rate. Supervisor Enrobing and I decided to see if interventions in ER will help with heart rate and wait for the possible change to IMU.
[2024-09-20] MEDS: diphenhydrAMINE HCl INJ 50 MG/ML VIAL 25 MG IV PUSH (17:38)
--- NOTE | 2024-09-20 17:50 | PC.NURSE ---
Spoke with Handmade Tile Artist and EDP - decision to change her admission to IMU due to the fact she remains tachycardic at a rate ranging between 120-130, and a soft BP despite interventions completed while in the ER the past 1.5 hours.
[2024-09-20] MEDS: MIDAZOLAM HCL (*CRX) 2 MG/2 ML VIAL IV PUSH (19:36)
[2024-09-20] MEDS: NOREPINEPHRINE 8 MG/D5W 250 ML 8 MG/250 ML BAG 9.4 MG (19:49)
[2024-09-20] MEDS: NOREPINEPHRINE 8 MG/D5W 250 ML 8 MG/250 ML BAG 13.13 MG IV CONT (20:09)
[2024-09-20 20:49] LABS: Lactic Acid Reflex 3.1 mmol/L (0.7-2.0)
[2024-09-20] MEDS: CEFEPIME 1 GM/NS 50 ML 1 GM/50 ML BAG IVPB (20:51)
[2024-09-20] MEDS: SODIUM CHLORIDE 0.9% IV 1,000 ML 200 ML IV CONT (21:03)
[2024-09-20] MEDS: MORPHINE SULFATE (*CRX) 2 MG/ML INJ IV PUSH (21:28)
[2024-09-20] MEDS: ACETAMINOPHEN 650 MG SUPPOSITORY RECTAL (21:28)
--- NOTE | 2024-09-20 21:53 | P.HP_ITS ---
H&P: HPI History of Present Illness Date/Time: 09/20/24 21:53 Chief Complaint: fever influenza vomiting/diarrhea Narrative: This is a 34-year-old female with no significant past medical history who presented to the hospital for evaluation of fever, vomiting, diarrhea, and recent diagnosis of influenza A. Patient states that her symptoms started last Tuesday. She went and seen her primary care doctor this past Tuesday where she tested positive for Influenza A and was started on Tamiflu even though she was already outside the window for this medication. Since that time, her symptoms progressively worsened. She is now complaining of shortness of breath,cough, generalized malaise, fever, chills, body aches that has progressively worsened over the last 24 hours. She came to the hospital for further evaluation of her symptoms. Heart rate on presentation was 149, RR 23, Blood pressure 95/40, elevated white blood cell count of 28.5 meeting SIRS criteria. Work up in the hospital included a chest x-ray which was negative for any acute cardiopulmonary disease. V/Q scan showed intermediate probability for pulmonary embolism. Initial labs showed a white blood cell count of 28.5, D-dimer 1.34, sodium 136, chloride 94, anion gap 17, creatinine 2.07, EGFR 27, blood sugar 119, total bili 1.4. Respiratory panel was positive for influenza A. patient spiked a fever while in the ED with a T-max of 104?, heart rate ranging 120-132, respiratory rate in the 30s, blood pressure 79/39 to 91/49 requiring insertion of a central line. She was noted to be dry with collapse of her IVC during central line insertion and was given another 1 L normal saline bolus and started on IV fluids at 200 mL/hour. She was also started on Levophed. Chest x-ray for central line insertion shown a bilateral basal pneumonia and good placement of her central line. UA showed turbid urine appearance, 2+ urine protein, trace urine ketone, 1+ urine blood, 1+ urine bili, 2+ leukocytes, 51-100 urine WBC, greater than 20 urine cast. Urine and blood cultures were obtained and pending. We also got of chest/abdomen/ pelvis CT which shown a right pleural effusion with right basal pneumonia, 11.2 cm lymph node anterior to the maria l, fluid in the large bowel suggestive of diarrhea versus enteritis. Patient was started on meropenem and vancomycin. EKG showing sinus tachycardia with a heart rate of 140, QTc 502. Review of Systems Review of Systems: All systems reviewed & are unremarkable except as noted in HPI and below PMFSH Past Medical History Medical History History of gestational hypertension Surgical History Surgical History History of laparoscopic appendectomy 07/01/[address] Gonzalez History of tonsillectomy History of delivery Family History Family History (Updated 09/21/24 @ 00:14 by Candida Rausch RN) Grandparent Lung cancer Grandparent Diabetes mellitus Dementia Father Hypertension Social History Social History Smoking status: Never smoker Alcohol intake: never Substance use: never Substance use type: does not use Do You Feel Safe in your Home?: Yes Lack of Transportation: No Lack of Food: Never True Current Housing: I Have Housing Concerned About Future Housing: No Difficulty Paying Gas/Electric Bills: No Difficulty Paying for Meds: No Currently Unemployed: No Education: Bachelor's Degree Difficulty w/ Childcare or Family Care: No Spiritual care concerns: Yes (Oriental Orthodox) Meds Home Medications and Allergies Allergies Allergy/AdvReac Type Severity Reaction Status Date / Time No Known Allergies Allergy Verified 09/20/24 11:03 Vital Signs Vital Signs - 24 hr 09/20/24 10:55 09/20/24 11:02 09/20/24 11:21 Temperature 98.6 F Pulse Rate 149 H 128 H Respiratory Rate 23 H Blood Pressure 95/40 L Pulse Oximetry 99 100 Oxygen Delivery Room Air 09/20/24 11:22 09/20/24 13:00 09/20/24 15:00 Temperature Pulse Rate 125 H 126 H Respiratory Rate 24 H 25 H Blood Pressure 97/54 L 95/81 L Pulse Oximetry 100 95 96 Oxygen Delivery Room Air 09/20/24 16:46 09/20/24 16:46 09/20/24 16:48 Temperature 102.2 F H Pulse Rate 137 H 135 H 135 H Respiratory Rate 25 H 31 H 21 H Blood Pressure 90/48 L 83/32 L 87/36 L Pulse Oximetry 100 98 99 Oxygen Delivery 09/20/24 16:49 09/20/24 16:52 09/20/24 17:00 Temperature Pulse Rate 136 H 137 H 129 H Respiratory Rate 21 H 20 31 H Blood Pressure 90/48 L 84/48 L Pulse Oximetry 98 100 99 Oxygen Delivery 09/20/24 17:01 09/20/24 17:07 09/20/24 17:15 Temperature Pulse Rate 129 H 135 H 136 H Respiratory Rate 29 H 26 H 23 H Blood Pressure 109/59 L Pulse Oximetry 98 95 98 Oxygen Delivery 09/20/24 17:16 09/20/24 17:44 09/20/24 17:45 Temperature Pulse Rate 131 H 131 H 128 H Respiratory Rate 34 H 26 H 24 H Blood Pressure 74/54 L Pulse Oximetry 96 Oxygen Delivery 09/20/24 17:46 09/20/24 17:51 09/20/24 17:53 Temperature Pulse Rate 128 H 127 H 128 H Respiratory Rate 28 H 30 H 32 H Blood Pressure 76/45 L 78/38 L 79/39 L Pulse Oximetry 97 Oxygen Delivery 09/20/24 17:55 09/20/24 18:00 09/20/24 18:05 Temperature 103.2 F H Pulse Rate 124 H 130 H 132 H Respiratory Rate 31 H 30 H 29 H Blood Pressure 91/49 L 90/38 L Pulse Oximetry 95 95 95 Oxygen Delivery 09/20/24 18:15 09/20/24 18:18 09/20/24 18:36 Temperature Pulse Rate 128 H 132 H 128 H Respiratory Rate 30 H 31 H 34 H Blood Pressure 148/133 H Pulse Oximetry 94 95 95 Oxygen Delivery 09/20/24 18:48 09/20/24 18:49 09/20/24 19:49 Temperature Pulse Rate 127 H 131 H 146 H Respiratory Rate 16 28 H Blood Pressure 90/45 L 86/43 L Pulse Oximetry 95 96 Oxygen Delivery 09/20/24 20:09 09/20/24 20:13 09/20/24 20:21 Temperature 100.6 F H 102.1 F H Pulse Rate 134 H 132 H 130 H Respiratory Rate 25 H 42 H Blood Pressure 88/48 L Pulse Oximetry 98 98 Oxygen Delivery 09/20/24 20:25 09/20/24 20:30 09/20/24 20:31 Temperature 102.0 F H 102.6 F H 102.6 F H Pulse Rate 132 H 132 H 133 H Respiratory Rate 26 H 27 H 37 H Blood Pressure 94/46 L 105/62 Pulse Oximetry 96 97 98 Oxygen Delivery 09/20/24 20:35 09/20/24 20:40 09/20/24 20:45 Temperature 102.8 F H 102.9 F H 103.0 F H Pulse Rate 131 H 132 H 135 H Respiratory Rate 41 H 37 H 37 H Blood Pressure 102/52 L 105/59 L 111/78 Pulse Oximetry 98 98 98 Oxygen Delivery 09/20/24 20:46 09/20/24 20:50 09/20/24 20:55 Temperature 103.0 F H 103.1 F H 103.2 F H Pulse Rate 134 H 140 H 125 H Respiratory Rate 47 H 40 H 41 H Blood Pressure 109/67 88/54 L Pulse Oximetry 99 98 99 Oxygen Delivery 09/20/24 20:56 09/20/24 21:20 09/20/24 21:21 Temperature 103.2 F H 103.5 F H 103.5 F H Pulse Rate 120 H 133 H 132 H Respiratory Rate 38 H 46 H 31 H Blood Pressure 103/52 L Pulse Oximetry 98 98 96 Oxygen Delivery 09/20/24 21:25 09/20/24 21:28 09/20/24 21:30 Temperature 103.6 F H 103.7 F H 103.7 F H Pulse Rate 133 H 119 H Respiratory Rate 31 H 34 H Blood Pressure 102/58 L 94/41 L Pulse Oximetry 97 96 Oxygen Delivery 09/20/24 21:31 Temperature 103.8 F H Pulse Rate 133 H Respiratory Rate 22 H Blood Pressure Pulse Oximetry 98 Oxygen Delivery Exam Narrative: General: acutely ill appearance, generalized malaise Head: atraumatic, no encephalopathy Eyes: PERRLA, sclera clear ENT: tachy,mucous membranes, nasal passages clear Neck: supple, no JVD, no adenopathy, trachea midline Cardiac: Normal S1 and S2. No murmur, gallops or friction rubs, peripheral pulses intact. Respiratory: Lungs mildly coarse, no adventitious lung sounds, short of breath at rest, tachypnea, currently on 2 L nasal cannula Gastrointestinal: soft, non-distended, non-tender, normoactive bowel sounds. reporting diarrhea, nausea, vomiting : [place] catheter placed, dark celia urine Extremities: moves all extremities well, no edema Skin: mildly diaphoretic, pale skin Neuro: Alert and oriented x4, cranial nerves intact, no neuro deficits. Psych: normal mood, normal affect, interactive H&P: Results Labs Labs: Short CBC 09/20/24 Range/Units 11:01 WBC 28.5 H (4.5-10.0) K/mm3 Hgb 12.9 (12.0-15.0) g/dL Hct 40.4 (37.0-47.0) % Plt Count 241 (150-375) k/mm3 BMP 09/20/24 11:01 Sodium 136 L Potassium 3.5 Chloride 94 L Carbon Dioxide 25 BUN 22 H D Creatinine 2.07 H Glucose 119 H Calcium 9.0 Liver Function 09/20/24 Range/Units 11:01 Total Bilirubin 1.4 H (0.2-1.3) mg/dL AST 27 (14-36) U/L ALT 21 (6-35) U/L Alkaline Phosphatase 97 (38-126) U/L Albumin 4.4 (3.5-5.1) g/dL Imaging Chest x-ray: Radiologist's impression: EXAMINATION: XR chest 1V portable DATE: 09/20/2024 11:22 INDICATION: Shortness of breath. TECHNIQUE: A single frontal view of the chest was obtained. COMPARISON: CT abdomen and pelvis 06/30/2024 FINDINGS: There is no pneumonia, pleural effusion, or pneumothorax. The heart size is normal. IMPRESSION: 1. No acute cardiopulmonary disease. Reviewed, dictated and finalized at location B. pulmonary perfusion imaging: Radiologist's impression: EXAMINATION: NM lung vent and perfusion DATE: 09/20/2024 15:16 INDICATION: Shortness of breath. TECHNIQUE: 24.1 mCi Xenon-133 was given for ventilation images. 5.5 mCi Tc-99m MAA was administered intravenously for perfusion images. Scintigraphic images of the chest were obtained. COMPARISON: Chest single view 09/20/2024, CT abdomen and pelvis 06/30/2024 FINDINGS: Ventilation images demonstrate no defects. Perfusion images demonstrate a large defect in the posterobasal segment right lower lobe. IMPRESSION: 1. Intermediate probability for pulmonary embolism. Reviewed, dictated and finalized at location B. chest x-ray post central line: Radiologist's impression: XR chest port-a-cath/central Ordering provider: Steven Hayward MD History: 34 years Female with . post central line placement . Comparison: September 20, 2024 FINDINGS: MEDIASTINUM: The cardiac silhouette is not enlarged. Left central line with the tip overlying the superior vena cava. LUNGS: No effusions or pneumothorax. Bilateral basal opacification suggestive of atelectasis versus pneumonia. OTHER: No free air under the diaphragm. IMPRESSION: Bilateral basal pneumonia. Left central line with the tip overlying superior vena cava. Reviewed, dictated and finalized at location A. chest/abdomen/pelvis CT: Radiologist's impression: CT chest abdomen pelvis wo con Ordering provider: Paris Mak APRN History: . sepsis . Comparison: None. Technique: CT chest without IV contrast. CT abdomen and pelvis without oral and IV contrast. Radiation reduction technique utilized. The dose-length product was 687.72 mGy-cm. FINDINGS: The study is limited due to lack of IV contrast. CHEST: --VISUALIZED THORACIC INLET: Normal as visualized. Left central line with the tip overlying the superior vena cava. --MEDIASTINUM: Aorta/coronary arteries: The thoracic aorta is normal. Heart/other: The heart is not enlarged. Lymph nodes: No mediastinal or hilar adenopathy. Precarinal lymph node measuring 1.2 cm is noted. Small prevascular lymph nodes are noted. --LUNGS: Right pleural effusion. Right basilar atelectasis versus pneumonia. No pulmonary nodules or masses. No pneumothorax. --MUSCULOSKELETAL: Soft tissues: The superficial soft tissues are normal. Bones: Normal spine. ABDOMEN/PELVIS: --MUSCULOSKELETAL: Bones: Normal spine. Superficial soft tissues: The superficial soft tissues are normal. --UPPER ABDOMINAL ORGANS: Liver: Normal. Gallbladder: Normal. Spleen: Normal. Stomach/duodenum: Normal. Pancreas: Normal. Adrenals: Normal. Kidneys: Normal. --PELVIC ORGANS: The bladder is normal. No bladder stones. --BOWEL AND MESENTERY: Colon: No evidence of diverticulitis. Fluid is seen in the large bowel suggestive of enteritis versus diarrhea. The appendix is not demonstrated. Small Bowel: Normal. No obstruction. Peritoneum/mesentery: No free air or free fluid. No mesenteric lymphadenopathy. Small mesenteric lymph nodes are noted. --RETROPERITONEUM: Normal aorta. No retroperitoneal lymphadenopathy. IMPRESSION: CHEST: 1. Right pleural effusion with right basal pneumonia. 2. One 1.2 cm lymph node anterior to the maria l. ABDOMEN/PELVIS: 1. No evidence of appendicitis, diverticulitis or intestinal obstruction. 2. Fluid in the large bowel suggestive of diarrhea versus enteritis. Clinical correlation advised. Reviewed, dictated and finalized at location A. Assessment and Plan Assessment and plan (1) Sepsis: Code(s): A41.9 - Sepsis, unspecified organism Status: Acute Assessment and Plan: patient meeting sepsis criteria with white blood cell count of 28.5, T-max of 104?, lactic acidosis 3.1, known right basal pneumonia, UA showing 2+ leukocyte, 51-100 urine WBC, heart rate in the 130s, respiratory rate 23, patient hypotensive despite fluid resuscitation of 3 L while in the ED ultimately requiring central line placement and pressors. * Blood and urine cultures were obtained and pending * continue cefepime and vancomycin * Will check C diff and stool cultures * lactic acid 3.1 * Levophed ordered, currently on 9 mcg/min. if Levophed his titrated up to 15 mcg/min we will consider placing patient on vasopressin as well (2) Acute hypoxic respiratory failure: Code(s): J96.01 - Acute respiratory failure with hypoxia Status: Acute Assessment and Plan: * patient currently on 2 L nasal cannula * keep O2 sat greater than 92% * initial chest x-ray was negative for any acute cardiopulmonary process * V/Q scan shown intermediate probability for PE * D-dimer 1.34 * 2nd chest x-ray showing bilateral basal pneumonia * chest/abdomen/ pelvis CT showing right pleural effusion with right basal pneumonia (3) Pulmonary embolism: Code(s): I26.99 - Other pulmonary embolism without acute cor pulmonale Status: Acute Assessment and Plan: * V/Q scan showed intermittent probability for pulmonary embolism * D-dimer 1.34 * patient started on Eliquis per PE protocol * consider getting a CTA of chest when creatinine improves (4) Influenza A: Code(s): J10.1 - Influenza due to other identified influenza virus with other respiratory manifestations Status: Acute Assessment and Plan: * respiratory panel positive for influenza A, patient symptoms started 7 days ago. Originally presented to her PCP and was placed on Tamiflu. We will hold of on Tamiflu as it is deemed to not be of benefit. (5) Pneumonia: Code(s): J18.9 - Pneumonia, unspecified organism Status: Acute Assessment and Plan: * chest x-ray post line insertion showed bilateral basal pneumonia * chest/abdomen/ pelvis CT showed right pleural effusion with right basal pneumonia * blood cultures obtained and pending * patient currently on cefepime and vancomycin * patient complaining of pleuritic pain and was started on [place] and morphine for pain control * start DuoNebs and Mucinex (6) LISANDRO (acute kidney injury): Code(s): N17.9 - Acute kidney failure, unspecified Status: Acute Assessment and Plan: * initial creatinine 2.07, EGFR 27 * baseline creatinine 0.70, EGFR greater than 60 * patient given 4 L normal saline bolus and started on normal saline at 200 mL/hour * continue to trend (7) UTI (urinary tract infection): Code(s): N39.0 - Urinary tract infection, site not specified Status: Acute Assessment and Plan: * UA showing turbid urine appearance, 2+ urine protein, trace urine ketone, 1+ urine blood, 1+ urine bili, 2+ leukocytes, 51-100 urine WBC * urine culture obtained and pending * continue cefepime (8) Diarrhea: Code(s): R19.7 - Diarrhea, unspecified Status: Acute Assessment and Plan: * multiple bouts of diarrhea at home * chest/abdomen/ pelvis CT showed fluid in the large bowel suggested of diarrhe a versus enteritis * will obtain C diff and stool culture * monitor electrolytes and replace as needed * continue IV fluids at 200 mL/hour for hydration * anion gap 17, bicarb 25 (9) Dehydration: Code(s): E86.0 - Dehydration Status: Acute Assessment and Plan: secondary to nausea and vomiting, see above plan of care for details (10) Elevated bilirubin: Code(s): R17 - Unspecified jaundice Status: Acute Assessment and Plan: * initial bilirubin 1.4 * UA showing 1+ bilirubin * CT of the chest/abdomen /pelvis showed a normal liver and gallbladder and was negative for any diverticulitis or intestinal obstruction, showed fluid in the large bowel suggestive of diarrhea versus enteritis * continue to trend Quality VTE Prophylaxis VTE prophylaxis: pharmacologic ordered Hospitalist MIPS Advance Care Plan I have confirmed that the patient's Advanced Care Plan is present, code status is documented, or surrogate decision maker is listed in patient medical record.: Yes Medication Reconciliation I have utilized all available resources to obtain, update and review the patients current medications (includes all prescriptions, OTC, herbals, cannabis, and nutritional supplements).: Yes
[2024-09-20 22:20] LABS: Add Urine Microscopic? YES; Appearance Urine Turbid (Clear); Bacteria Urine None Seen /hpf; Bilirubin Urine 1+ (Negative); Blood Urine 1+ (Negative); Color Urine Dark Yellow (Yellow); Glucose Urine UA Negative (Negative); Ketones Urine Trace mg/dL (Negative); Leukocyte Esterase Ur 2+ LEU/UL (Negative); Need Manual Microscopic Reviewed; Nitrate Urine Negative (Negative); Non Pathogenic Casts >20; Protein Urine 2+ mg/dL (Negative); RBC Urine 0-2 /hpf (0-2); Specific Grav Ur 1.022 (1.001-1.035); Squamous Epithelial Cell Urine Few /hpf (Few); WBC Urine 51-100 /hpf (0-3)
[2024-09-20] MEDS: VANCOMYCIN 1,250 MG/NS 250 ML 1,250 MG/250 ML BAG 166.67 MG IVPB (22:21)
[2024-09-20] MEDS: APIXABAN 5 MG TABLET 10 MG PO (22:22)
[2024-09-20 22:37] LABS: Reflex Lactic Acid Yes or No Add Lactic
--- NOTE | 2024-09-20 23:32 | ADMGEN ---
This patient, Yvonne Skaggs, was admitted to Intensive Care Unit-8 on 09/20/24 at 2325. Patient/family oriented to hospital policies and general routines including ID bracelet, bed and alarms, visiting hours, pain management, procedures, bathroom and other care routines, personal items, smoking policy, room service/diet, and visiting hours. Information on how to activate the Rapid Response Team has been discussed. Patient/Family are encouraged to report perceived risks to care and to ask questions if they do not understand what they are told or what they should do.
[2024-09-21] VITALS (60 sets, daily range): BP systolic 67–149; BP diastolic 35–90; PULSE 84–148; RESP 18–37; TEMP 37.6–40; O2SAT 90–100; BMI 29.3
[2024-09-21] MEDS: HYDROcodone/acetaminophen (*CRX) 5-325 MG TABLET 1 TAB PO (00:30)
[2024-09-21 01:08] LABS: IFOB Positive Control Positive; Immunochemical Fecal Occult Bl Negative (N)
[2024-09-21 01:33] LABS: Alanine Aminotransferase 19 U/L (6-35); Albumin Level 2.4 g/dL (3.5-5.1); Alkaline Phosphatase 45 U/L (38-126); Anion Gap 12 mmol/L (4-12); Aspartate Amino Transferase 37 U/L (14-36); Bilirubin,Total 1.2 mg/dL (0.2-1.3); Blood Urea Nitrogen 28 mg/dL (7-17); Calcium 6.2 mg/dL (8.4-10.2); Carbon Dioxide 15 mmol/L (22-30); Chloride 106 mmol/L (98-107); Estimated CRCL calculation 38 ml/min; Estimated Glomerular Filt Rate 29; Glucose 95 mg/dL (65-110); Sodium 133 mmol/L (137-145)
[2024-09-21 02:16] LABS: Hematocrit 31.2 % (37.0-47.0); Hemoglobin 9.9 g/dL (12.0-15.0); Mean Corpuscular HGB Conc 31.7 g/dl (32-36); Mean Corpuscular Hemoglobin 26.3 pg (26-34); Platelet Count Result 169 k/mm3 (150-375); Red Blood Count 3.76 M/mm3 (4.2-5.4); Red Cell Distribution Width 13.3 % (11.5-14.5); White Blood Count 20.9 K/mm3 (4.5-10.0)
[2024-09-21 02:30] LABS: MRSA (PCR) NOT DETECTED (NOT DETECTE)
[2024-09-21 02:31] LABS: Lymphocytes Percent Manual 1 % (18-44); Monocytes Absolute Manual 1.04 K/mm3 (0.1-0.90); Monocytes Percent Manual 5 % (3-9); Total Cells Counted 100
[2024-09-21 02:32] LABS: Metamyelocytes Percent 1 %
[2024-09-21 02:35] LABS: Anisocytosis 1+; Burr Cells 1+; Hypochromasia 1+; Platelet Estimate Adequate (Adequate); Schistocytes None Seen
[2024-09-21 02:36] LABS: Neutrophils Percent Manual 78 % (46-73)
[2024-09-21 02:37] LABS: Band Neutrophils Percent 15 % (0-6); Neutrophils Absolute Manual 19.43 K/mm3 (1.7-7.2)
[2024-09-21 03:25] LABS: Toxigenic C. Diff NEGATIVE (NEGATIVE)
[2024-09-21] MEDS: SODIUM CHLORIDE 0.9% IV 1,000 ML 200 ML IV CONT (04:25)
[2024-09-21] MEDS: ACETAMINOPHEN 325 MG TABLET 650 MG PO ×3 (04:44→20:52)
[2024-09-21] MEDS: VASOPRESSIN INJ 100 UNITS in DEXTROSE 5% 95 ML IV CONT (04:54)
[2024-09-21] MEDS: NOREPINEPHRINE 8 MG/D5W 250 ML 8 MG/250 ML BAG 28.13 MG IV CONT (07:08)
[2024-09-21] MEDS: IPRATROPIUM BR 0.02% INH SOLN 0.5 MG/2.5 ML VIAL INHALATION ×3 (08:08→20:36)
[2024-09-21] MEDS: LEVALBUTEROL NEB 1.25 MG/3 ML INHALATION ×3 (08:08→20:36)
[2024-09-21] MEDS: LACTATED RINGERS 1,000 ML 100 ML IV CONT (09:02)
[2024-09-21] MEDS: LACTATED RINGERS 500 ML IV CONT (09:02)
[2024-09-21] MEDS: SODIUM BICARBONATE 8.4% 50 MEQ/50 ML SYRINGE IV PUSH ×2 (09:06→17:00)
[2024-09-21] MEDS: CEFEPIME 1 GM/NS 50 ML 1 GM/50 ML BAG IVPB (09:07)
[2024-09-21] MEDS: metroNIDAZOLE 500 MG/ISO 100ML 500 MG/100 ML BAG 100 MG IVPB ×2 (09:18→15:15)
[2024-09-21] MEDS: ALBUMIN HUMAN 25% 25 GM/100 ML 100 ML IVPB ×3 (09:22→17:28)
[2024-09-21] MEDS: POTASSIUM CHLORIDE 20 MEQ ER TABLET 40 MEQ PO (09:32)
[2024-09-21] MEDS: guaiFENesin 12 HR 600 MG TABCR 1200 MG PO ×2 (09:32→20:55)
[2024-09-21] MEDS: CENTRAL LINE FLUSH 10 ML IV PUSH ×3 (09:33→20:55)
[2024-09-21] MEDS: APIXABAN 5 MG TABLET 10 MG PO ×2 (09:33→20:53)
[2024-09-21] MEDS: KCL 40 MEQ/WATER 100 ML 100 ML 25 ML IVPB (09:49)
[2024-09-21] MEDS: ONDANSETRON INJ 4 MG/2 ML VIAL IV PUSH (10:55)
[2024-09-21] MEDS: ETOMIDATE 20 MG/10 ML AMPUL IV PUSH (11:04)
[2024-09-21] MEDS: ROCURONIUM BROMIDE 50 MG/5 ML VIAL IV PUSH (11:05)
[2024-09-21] MEDS: FENTANYL 2,500MCG/NS250ML(*CRX 2,500 MCG/250 ML BAG IV CONT (11:12)
[2024-09-21] MEDS: MIDAZOLAM 100MG/NS 100ML(*CRX) 100 MG/100 ML BAG IV CONT (11:13)
[2024-09-21] MEDS: MIDAZOLAM HCL (*CRX) 2 MG/2 ML VIAL IV PUSH (11:14)
--- NOTE | 2024-09-21 11:14 | WPDPROCEDUR ---
Procedures Intubation Intubation Date: 09/21/24 Intubation Time: 11:04 Consent: Consent was obtained from the patient and her spouse after cleaning him a rationale for intubation and mechanical ventilation. Patient was having shallow breaths, tachypneic, nausea, tachycardia A pre-procedural Time-Out was completed immediately before starting the procedure and confirmed: Patient Identification, Site, Procedure, Patient Position and the Availability of Requisite Equipment: Yes Sedative: etomidate Paralytic: rocuronium Laryngoscope: fiber optic video scope Assist device used: fiber optic device ET tube size: 7.5 Tube secured depth (cm): 23 Tube secured location: lips Tube placement confirmation: visualized tube passing through cords, equal breath sounds bilaterally, no breath sounds over epigastrium and confirmation by capnometry Patient tolerated procedure: well Intubation complications: none
--- NOTE | 2024-09-21 11:16 | WPDCNINT ---
Assessment and Plan Assessment and plan (1) Septic shock: Code(s): A41.9 - Sepsis, unspecified organism; R65.21 - Severe sepsis with septic shock Status: Acute Assessment and Plan: Patient presented with shortness of breath, cough, general malaise and fatigue, fevers and chills, body aches which have been worsening since 09/18/24 -patient received 4 L IV fluid bolus in the ER despite which her blood pressures were low, a a central line was inserted in the ED on 09/20 -currently on Levophed and vasopressin, will target SBP > 100 mmHg and MAP > for 65 mmHg -continue cefepime, vancomycin and Flagyl (09/21) -09/20: blood and urine cultures have been obtained -Will add hydrocortisone for septic shock and MRI -continue maintenance IV fluids (2) Acute hypoxic respiratory failure: Code(s): J96.01 - Acute respiratory failure with hypoxia Status: Acute Assessment and Plan: Acute hypoxic respiratory failure, patient has been tachypneic, tachycardic, shallow breathing, possible PE with intermediate probability on V/Q scan -discussed with patient and , both agreeable for intubation as she is significantly tachypneic with shallow breaths, tachycardia, now nausea and vomiting with risk of aspiration -09/21/2024: Patient successfully intubated -continue CMV mode of ventilation, peep of 8, 100% FiO2 -ETT in good position on the chest x-ray -will continue bronchodilators -sedated with fentanyl and Versed infusion, maintain RASS of -2, daily SBT and SAT (3) LISANDRO (acute kidney injury): Code(s): N17.9 - Acute kidney failure, unspecified Status: Acute Assessment and Plan: Patient presented with diarrhea, fatigue, malaise, influenza A, dehydration -was adequately hydrated in the ER with 4 L IV fluids -continue maintenance IV fluids -creatinine on admission was 2.07 (baseline creatinine 0.70 in June 2024) -will obtain urine lytes, CK level, urine Na is on feels -check renal ultrasound -nephrology has been consulted -continue to monitor urine output, electrolytes and renal function Patient also has known anion gap metabolic acidosis which could be related to diarrhea and or IV fluids, continue to monitor (4) Influenza A: Code(s): J10.1 - Influenza due to other identified influenza virus with other respiratory manifestations Status: Acute Assessment and Plan: Will start patient on Tamiflu, renally dose (5) Diarrhea: Code(s): R19.7 - Diarrhea, unspecified Status: Acute Assessment and Plan: Diarrhea has improved, continue hydration (6) Pulmonary embolism: Code(s): I26.99 - Other pulmonary embolism without acute cor pulmonale Status: Acute Assessment and Plan: Patient had elevated D-dimer, V/Q scan showed intermediate probability -patient started on Eliquis -will obtain lower extremity venous Doppler Plan DVT prophylaxis: Eliquis Stress ulcer prophylaxis: Protonix Nutrition: NPO for now Code Status: Full code Critical Care Time Spent: 75 minutes Discussed with patient and her prior to intubation, both of them consented to intubation and mechanical ventilation. I discussed with them regarding radiology reports, blood work. They are aware that patient is hypotensive and requiring 2 blood pressure support medications and that she is on antibiotic for possible infection/pneumonia. I answered all the questions Due to a high probability of clinically significant, life threatening deterioration, the patient required my highest level of preparedness to intervene emergently and I personally spent this critical care time directly and personally managing the patient. This critical care time included obtaining a history; examining the patient; pulse oximetry; ordering and review of studies; arranging urgent treatment with development of a management plan; evaluation of patient's response to treatment; frequent reassessment; and discussions with other providers. It was exclusive of separately billable procedures and treating other patients and teaching time. Please see Assessment and Plan section and the rest of the note for further information on patient assessment and treatment This dictation may have been done utilizing a voice recognition system. Attempts have been made to correct errors. However, there may be uncorrected grammatical, spelling, and recognitions errors present. Quality Coordinator Consult Note Consult date: 09/21/24 Reason for consult: Acute respiratory failure, septic shock, influenza A, pneumonia, diarrhea, enteritis, acute kidney injury HPI: Yvonne Skaggs is a 34 year old female with past medical history of gestational hypertension, no other medical history presented the ED on 09/20/2024 with complains of fevers, nausea, vomiting, diarrhea, fatigue since 09/14/2024, she went to her primary care doctor and was diagnosed with influenza A on 09/18/2024 and was started on Tamiflu. The symptoms continue to worsen and she presented the ED on 09/20/2024 with increasing shortness of breath, cough, general malaise and fatigue, fevers and chills, body aches which have worsened for the last 24 hours prior to admission. In the ER she was tachycardic with heart rates in the 140s, WBC count of 28.5, systolic blood pressures in the 90s, D-dimer was 1.34 sodium 136, potassium 3.4, CO2 25, BUN 22, creatinine 2.07 (baseline creatinine 0.7 in June 2024) lactic acid was 3.1, patient received 4 L IV fluid bolus in the ER, repeat lactic was 3.0.. Total bilirubin was 1.4, AST and ALT were normal. UA was positive for UTI. Influenza A a was positive. RSV, SARS-CoV-[address] scan of the chest abdomen and pelvis without contrast showed right pleural effusion with right basilar pneumonia, 1.2 cm lymph node anterior to the maria l. No evidence of appendicitis, diverticulitis or intestinal obstruction. Fluid in the large bowel suggestive of diarrhea versus enteritis. Chest x-ray showed moderate pleural effusion, mild to moderate probable pulmonary edema pattern correlate clinically for pneumonia 09/21/2024: Patient seen examined the ICU, is awake, alert, tachypneic with shallow breaths, with nausea. Able to give me one-word answers. Continues to have difficulty breathing, complains of right-sided at lower chest wall pain. Remains on Levophed and vasopressin. Urine output has been good, patient remains febrile to 102? F. Denies any abdominal pain, diarrhea has improved -patient denies any alcohol, drug or alcohol use Review of Systems Review of Systems: All systems reviewed & are unremarkable except as noted in HPI and below PMFSH Past Medical History Medical History History of gestational hypertension Surgical History Surgical History History of laparoscopic appendectomy 07/01/[address] Gonzalez History of tonsillectomy History of delivery Family History Family History (Updated 09/21/24 @ 00:14 by Candida Rausch RN) Grandparent Lung cancer Grandparent Diabetes mellitus Dementia Father Hypertension Social History Social History Smoking status: Never smoker Alcohol intake: never Substance use: never Substance use type: does not use Do You Feel Safe in your Home?: Yes Lack of Transportation: No Lack of Food: Never True Current Housing: I Have Housing Concerned About Future Housing: No Difficulty Paying Gas/Electric Bills: No Difficulty Paying for Meds: No Currently Unemployed: No Education: Bachelor's Degree Difficulty w/ Childcare or Family Care: No Spiritual care concerns: Yes ([employer]) Meds Home Medications and Allergies Allergies Allergy/AdvReac Type Severity Reaction Status Date / Time No Known Allergies Allergy Verified 09/20/24 11:03 Vital Signs Vital Signs - 24 hr 09/20/24 11:21 09/20/24 11:22 09/20/24 13:00 Temperature Pulse Rate 128 H 125 H Respiratory Rate 24 H Blood Pressure 97/54 L Pulse Oximetry 100 95 Oxygen Delivery Room Air Oxygen Flow Rate 09/20/24 15:00 09/20/24 16:46 09/20/24 16:46 Temperature 102.2 F H Pulse Rate 126 H 137 H 135 H Respiratory Rate 25 H 25 H 31 H Blood Pressure 95/81 L 90/48 L 83/32 L Pulse Oximetry 96 100 98 Oxygen Delivery Oxygen Flow Rate 09/20/24 16:48 09/20/24 16:49 09/20/24 16:52 Temperature Pulse Rate 135 H 136 H 137 H Respiratory Rate 21 H 21 H 20 Blood Pressure 87/36 L 90/48 L Pulse Oximetry 99 98 100 Oxygen Delivery Oxygen Flow Rate 09/20/24 17:00 09/20/24 17:01 09/20/24 17:07 Temperature Pulse Rate 129 H 129 H 135 H Respiratory Rate 31 H 29 H 26 H Blood Pressure 84/48 L 109/59 L Pulse Oximetry 99 98 95 Oxygen Delivery Oxygen Flow Rate 09/20/24 17:15 09/20/24 17:16 09/20/24 17:44 Temperature Pulse Rate 136 H 131 H 131 H Respiratory Rate 23 H 34 H 26 H Blood Pressure 74/54 L Pulse Oximetry 98 96 Oxygen Delivery Oxygen Flow Rate 09/20/24 17:45 09/20/24 17:46 09/20/24 17:51 Temperature Pulse Rate 128 H 128 H 127 H Respiratory Rate 24 H 28 H 30 H Blood Pressure 76/45 L 78/38 L Pulse Oximetry Oxygen Delivery Oxygen Flow Rate 09/20/24 17:53 09/20/24 17:55 09/20/24 18:00 Temperature Pulse Rate 128 H 124 H 130 H Respiratory Rate 32 H 31 H 30 H Blood Pressure 79/39 L 91/49 L Pulse Oximetry 97 95 95 Oxygen Delivery Oxygen Flow Rate 09/20/24 18:05 09/20/24 18:15 09/20/24 18:18 Temperature 103.2 F H Pulse Rate 132 H 128 H 132 H Respiratory Rate 29 H 30 H 31 H Blood Pressure 90/38 L 148/133 H Pulse Oximetry 95 94 95 Oxygen Delivery Oxygen Flow Rate 09/20/24 18:36 09/20/24 18:48 09/20/24 18:49 Temperature Pulse Rate 128 H 127 H 131 H Respiratory Rate 34 H 16 28 H Blood Pressure 90/45 L Pulse Oximetry 95 95 96 Oxygen Delivery Oxygen Flow Rate 09/20/24 19:49 09/20/24 20:09 09/20/24 20:13 Temperature 100.6 F H Pulse Rate 146 H 134 H 132 H Respiratory Rate 25 H Blood Pressure 86/43 L 88/48 L Pulse Oximetry 98 Oxygen Delivery Oxygen Flow Rate 09/20/24 20:21 09/20/24 20:25 09/20/24 20:30 Temperature 102.1 F H 102.0 F H 102.6 F H Pulse Rate 130 H 132 H 132 H Respiratory Rate 42 H 26 H 27 H Blood Pressure 94/46 L 105/62 Pulse Oximetry 98 96 97 Oxygen Delivery Oxygen Flow Rate 09/20/24 20:31 09/20/24 20:35 09/20/24 20:40 Temperature 102.6 F H 102.8 F H 102.9 F H Pulse Rate 133 H 131 H 132 H Respiratory Rate 37 H 41 H 37 H Blood Pressure 102/52 L 105/59 L Pulse Oximetry 98 98 98 Oxygen Delivery Oxygen Flow Rate 09/20/24 20:45 09/20/24 20:46 09/20/24 20:50 Temperature 103.0 F H 103.0 F H 103.1 F H Pulse Rate 135 H 134 H 140 H Respiratory Rate 37 H 47 H 40 H Blood Pressure 111/78 109/67 Pulse Oximetry 98 99 98 Oxygen Delivery Oxygen Flow Rate 09/20/24 20:55 09/20/24 20:56 09/20/24 21:20 Temperature 103.2 F H 103.2 F H 103.5 F H Pulse Rate 125 H 120 H 133 H Respiratory Rate 41 H 38 H 46 H Blood Pressure 88/54 L 103/52 L Pulse Oximetry 99 98 98 Oxygen Delivery Oxygen Flow Rate 09/20/24 21:21 09/20/24 21:25 09/20/24 21:28 Temperature 103.5 F H 103.6 F H 103.7 F H Pulse Rate 132 H 133 H Respiratory Rate 31 H 31 H Blood Pressure 102/58 L Pulse Oximetry 96 97 Oxygen Delivery Oxygen Flow Rate 09/20/24 21:30 09/20/24 21:30 09/20/24 21:30 Temperature 103.7 F H Pulse Rate 119 H 119 H 119 H Respiratory Rate 34 H Blood Pressure 94/41 L 94/41 L 94/41 L Pulse Oximetry 96 Oxygen Delivery Oxygen Flow Rate 09/20/24 21:31 09/20/24 21:35 09/20/24 21:40 Temperature 103.8 F H 103.8 F H 103.9 F H Pulse Rate 133 H 130 H 128 H Respiratory Rate 22 H 32 H 27 H Blood Pressure 109/57 L 104/48 L Pulse Oximetry 98 97 98 Oxygen Delivery Oxygen Flow Rate 09/20/24 21:45 09/20/24 21:46 09/20/24 21:50 Temperature 103.9 F H 103.9 F H 104.0 F H Pulse Rate 128 H 132 H 130 H Respiratory Rate 28 H 22 H 33 H Blood Pressure 106/65 95/57 L Pulse Oximetry 97 97 97 Oxygen Delivery Oxygen Flow Rate 09/20/24 22:00 09/20/24 22:32 09/20/24 22:35 Temperature 103.8 F H 103.8 F H 103.8 F H Pulse Rate 131 H 132 H 132 H Respiratory Rate 23 H 37 H 32 H Blood Pressure 113/58 L 97/62 L Pulse Oximetry 98 97 97 Oxygen Delivery Oxygen Flow Rate 09/20/24 22:40 09/20/24 22:45 09/20/24 22:46 Temperature 103.7 F H 103.6 F H 103.6 F H Pulse Rate 134 H 124 H 124 H Respiratory Rate 31 H 36 H 29 H Blood Pressure 88/54 L 96/61 L Pulse Oximetry Oxygen Delivery Oxygen Flow Rate 09/20/24 23:22 09/20/24 23:26 09/20/24 23:32 Temperature 103.1 F H Pulse Rate 137 H 138 H 136 H Respiratory Rate 11 L Blood Pressure 92/64 L 114/65 Pulse Oximetry 95 97 Oxygen Delivery Oxygen Flow Rate 09/21/24 00:00 09/21/24 00:00 09/21/24 00:00 Temperature 103.0 F H Pulse Rate 127 H 127 H 127 H Respiratory Rate 37 H 37 H Blood Pressure 98/54 L 98/54 L Pulse Oximetry 96 96 Oxygen Delivery Nasal Cannula Oxygen Flow Rate 2 09/21/24 00:00 09/21/24 01:00 09/21/24 02:00 Temperature Pulse Rate 133 H 133 H Respiratory Rate Blood Pressure 118/90 Pulse Oximetry 94 Oxygen Delivery Nasal Cannula Oxygen Flow Rate 3 09/21/24 02:00 09/21/24 02:00 09/21/24 02:50 Temperature 103.1 F H Pulse Rate 136 H 136 H 125 H Respiratory Rate 20 Blood Pressure 118/90 69/41 L Pulse Oximetry 90 Oxygen Delivery Oxygen Flow Rate 09/21/24 03:44 09/21/24 04:00 09/21/24 04:00 Temperature 103.1 F H 102.8 F H Pulse Rate 125 H 125 H Respiratory Rate 25 H 25 H Blood Pressure 103/67 Pulse Oximetry 96 96 Oxygen Delivery Nasal Cannula Oxygen Flow Rate 3 09/21/24 04:00 09/21/24 04:00 09/21/24 04:44 Temperature 103.3 F H Pulse Rate 126 H 125 H Respiratory Rate Blood Pressure 103/67 Pulse Oximetry Oxygen Delivery Oxygen Flow Rate 09/21/24 04:54 09/21/24 05:40 09/21/24 05:45 Temperature 103.2 F H Pulse Rate 127 H 128 H Respiratory Rate Blood Pressure 67/42 L 75/35 L Pulse Oximetry Oxygen Delivery Oxygen Flow Rate 09/21/24 06:00 09/21/24 06:00 09/21/24 06:00 Temperature 103.1 F H Pulse Rate 125 H 125 H 125 H Respiratory Rate 27 H Blood Pressure 97/65 L 97/65 L Pulse Oximetry 94 Oxygen Delivery Oxygen Flow Rate 09/21/24 06:00 09/21/24 07:08 09/21/24 07:08 Temperature Pulse Rate 125 H 134 H 134 H Respiratory Rate Blood Pressure 97/65 L 110/71 110/71 Pulse Oximetry Oxygen Delivery Oxygen Flow Rate 09/21/24 07:56 09/21/24 08:08 09/21/24 08:25 Temperature Pulse Rate 123 H 131 H Respiratory Rate 24 H 22 H Blood Pressure Pulse Oximetry 98 Oxygen Delivery Nasal Cannula Oxygen Flow Rate 3 09/21/24 11:12 09/21/24 11:13 Temperature Pulse Rate 140 H 140 H Respiratory Rate 24 H 24 H Blood Pressure Pulse Oximetry Oxygen Delivery Oxygen Flow Rate Exam Narrative: General: Pleasant female, in respiratory distress HEENT:? Pupils in equal and reactive, sclera is flushed Neck:? Supple Respiratory:? Tachypnea, rales on the right, middle and lower lobe, cause breath sounds bilaterally, decreased air entry, no wheezing Cardiac:? S1-S2 is normal, tachycardia Abdomen:? Soft, nontender, nondistended, normoactive bowel sounds Extremities:? No edema, warm, palpable pedal pulses Neuro:? Patient is awake, alert, oriented, Skin:? No skin lesion Psych:? Anxious Results Labs 09/21/24 02:09 09/21/24 01:15 Labs: Short CBC 09/20/24 09/21/24 Range/Units 11:01 02:09 WBC 28.5 H 20.9 H (4.5-10.0) K/mm3 Hgb 12.9 9.9 L D (12.0-15.0) g/dL Hct 40.4 31.2 L (37.0-47.0) % Plt Count 241 169 (150-375) k/mm3 [facility] 09/20/24 09/21/24 11:01 01:15 Sodium 136 L 133 L Potassium 3.5 3.0 L Chloride 94 L 106 Carbon Dioxide 25 15 L BUN 22 H D 28 H Creatinine 2.07 H 1.98 H Glucose 119 H 95 Calcium 9.0 6.2 L Liver Function 09/20/24 09/21/24 Range/Units 11:01 01:15 Total Bilirubin 1.4 H 1.2 (0.2-1.3) mg/dL AST 27 37 H (14-36) U/L ALT 21 19 (6-35) U/L Alkaline Phosphatase 97 45 (38-126) U/L Albumin 4.4 2.4 L (3.5-5.1) g/dL Urine 09/20/24 Range/Units 22:03 Urine Color Dark yellow (Yellow) Urine Appearance Turbid H (Clear) Urine pH 5.0 (5.0-9.0) Ur Specific Hardy 1.022 (1.001-1.035) Urine Protein 2+ H (Negative) mg/dL Urine Glucose (UA) Negative (Negative) mg/dL Quality VTE Prophylaxis VTE prophylaxis: pharmacologic ordered Hospitalist MIPS Advance Care Plan I have confirmed that the patient's Advanced Care Plan is present, code status is documented, or surrogate decision maker is listed in patient medical record.: Yes Medication Reconciliation I have utilized all available resources to obtain, update and review the patients current medications (includes all prescriptions, OTC, herbals, cannabis, and nutritional supplements).: Yes
[2024-09-21] MEDS: CEFEPIME 2 GM/NS 50 ML 2 GM/50 ML BAG IVPB ×2 (11:59→20:53)
--- NOTE | 2024-09-21 11:59 | P.CONNP_ITS ---
Assessment and Plan Assessment and plan (1) LISANDRO (acute kidney injury): Code(s): N17.9 - Acute kidney failure, unspecified Status: Acute Assessment and Plan: The patient has acute kidney injury. Her creatinine was normal back in June when she had her laparoscopic appendectomy. The patient was most likely dehydrated when she came in. She had had nausea vomiting and diarrhea for a few days. Dr. Joshua has ordered urine sodium and creatinine. The patient also was hypotensive which could contribute to kidney injury as well. The patient has septic shock and could have ATN from that as well. Rhabdomyolysis could do this especially in the presence of a viral infection so will check a CPK. The patient had a CT scan of the abdomen showing normal kidneys so she is not obstructed. She did not receive contrast and she does not take any meds at home. The patient was not on any medications at home so interstitial nephritis is unlikely. AST and ALT are normal and there is no history of flank pain so vascular disease would be unlikely as well especially at this age. The creatinine has fallen a little bit in the last 12hours. She is making some urine. This could just be dilutional because she has received a lot of IV fluids. However, since she is making more urine, she also may be recovering. Will continue IV fluids, blood pressure support, antibiotics, and follow the creatinine closely. Discussed with Dr Joshua and nurse (2) Septic shock: Code(s): A41.9 - Sepsis, unspecified organism; R65.21 - Severe sepsis with septic shock Status: Acute Assessment and Plan: The patient is on pressors to support her blood pressure. Latest blood pressure reading is 110/71 (3) Elevated bilirubin: Code(s): R17 - Unspecified jaundice Status: Acute Assessment and Plan: Repeat bilirubin was better. (4) UTI (urinary tract infection): Code(s): N39.0 - Urinary tract infection, site not specified Status: Acute Assessment and Plan: Cultures are pending. She is on antibiotics. (5) Influenza A: Code(s): J10.1 - Influenza due to other identified influenza virus with other respiratory manifestations Status: Acute Assessment and Plan: On Tamiflu History of Present Illness Reason for Consult Consult date: 09/21/24 Chief Complaint Chief complaint: INFLUENZA A/LISANDRO/LEUKOCYTOSIS/PULMONARY EMBOLISM PIÑA History of Present Illness Narrative: Yvonne is an unfortunate 34-year-old lady who has had a laparoscopic appendectomy 3 months ago, gestational hypertension, and otherwise has been healthy. The patient has had fever, nausea, vomiting, diarrhea for about a week and then more recently developed cough shortness of breath aches pains and more fevers. The patient was seen in the ER. She is found to be hypotensive and so was given IV fluids and Levophed. CT of the chest abdomen pelvis were unremarkable. Labs showed an elevated white count, and elevated creatinine, an elevated lactate, leukocyturia, and influenza A test which was positive. COVID RSV and C diff were negative. Cultures were obtained. She was given fluids, antibiotics, and admitted to the ICU. The patient shortness of breath worsened while in the ICU and so she was intubated. The patient cannot give a history. I got the information from the chart. Review of Systems 2 Review of Systems: ROS unobtainable: Yes unobtainable due to endotracheal tube PMFSH Past Medical History Medical History History of gestational hypertension Surgical History Surgical History History of laparoscopic appendectomy 07/01/[address] Gonzalez History of tonsillectomy History of delivery Family History Family History Grandparent Lung cancer Grandparent Diabetes mellitus Dementia Father Hypertension Social History Social History Smoking status: Never smoker Alcohol intake: never Substance use: never Substance use type: does not use Do You Feel Safe in your Home?: Yes Lack of Transportation: No Lack of Food: Never True Current Housing: I Have Housing Concerned About Future Housing: No Difficulty Paying Gas/Electric Bills: No Difficulty Paying for Meds: No Currently Unemployed: No Education: Bachelor's Degree Difficulty w/ Childcare or Family Care: No Spiritual care concerns: Yes ([employer]) Meds Home Medications and Allergies Allergies Allergy/AdvReac Type Severity Reaction Status Date / Time No Known Allergies Allergy Verified 09/20/24 11:03 Vital Signs Vital Signs - 24 hr 09/20/24 13:00 09/20/24 15:00 09/20/24 16:46 Temperature 102.2 F H Pulse Rate 125 H 126 H 137 H Respiratory Rate 24 H 25 H 25 H Blood Pressure 97/54 L 95/81 L 90/48 L Pulse Oximetry 95 96 100 Oxygen Delivery Oxygen Flow Rate Fraction of Inspired Oxygen 09/20/24 16:46 09/20/24 16:48 09/20/24 16:49 Temperature Pulse Rate 135 H 135 H 136 H Respiratory Rate 31 H 21 H 21 H Blood Pressure 83/32 L 87/36 L Pulse Oximetry 98 99 98 Oxygen Delivery Oxygen Flow Rate Fraction of Inspired Oxygen 09/20/24 16:52 09/20/24 17:00 09/20/24 17:01 Temperature Pulse Rate 137 H 129 H 129 H Respiratory Rate 20 31 H 29 H Blood Pressure 90/48 L 84/48 L Pulse Oximetry 100 99 98 Oxygen Delivery Oxygen Flow Rate Fraction of Inspired Oxygen 09/20/24 17:07 09/20/24 17:15 09/20/24 17:16 Temperature Pulse Rate 135 H 136 H 131 H Respiratory Rate 26 H 23 H 34 H Blood Pressure 109/59 L 74/54 L Pulse Oximetry 95 98 96 Oxygen Delivery Oxygen Flow Rate Fraction of Inspired Oxygen 09/20/24 17:44 09/20/24 17:45 09/20/24 17:46 Temperature Pulse Rate 131 H 128 H 128 H Respiratory Rate 26 H 24 H 28 H Blood Pressure 76/45 L Pulse Oximetry Oxygen Delivery Oxygen Flow Rate Fraction of Inspired Oxygen 09/20/24 17:51 09/20/24 17:53 09/20/24 17:55 Temperature Pulse Rate 127 H 128 H 124 H Respiratory Rate 30 H 32 H 31 H Blood Pressure 78/38 L 79/39 L 91/49 L Pulse Oximetry 97 95 Oxygen Delivery Oxygen Flow Rate Fraction of Inspired Oxygen 09/20/24 18:00 09/20/24 18:05 09/20/24 18:15 Temperature 103.2 F H Pulse Rate 130 H 132 H 128 H Respiratory Rate 30 H 29 H 30 H Blood Pressure 90/38 L Pulse Oximetry 95 95 94 Oxygen Delivery Oxygen Flow Rate Fraction of Inspired Oxygen 09/20/24 18:18 09/20/24 18:36 09/20/24 18:48 Temperature Pulse Rate 132 H 128 H 127 H Respiratory Rate 31 H 34 H 16 Blood Pressure 148/133 H 90/45 L Pulse Oximetry 95 95 95 Oxygen Delivery Oxygen Flow Rate Fraction of Inspired Oxygen 09/20/24 18:49 09/20/24 19:49 09/20/24 20:09 Temperature Pulse Rate 131 H 146 H 134 H Respiratory Rate 28 H Blood Pressure 86/43 L 88/48 L Pulse Oximetry 96 Oxygen Delivery Oxygen Flow Rate Fraction of Inspired Oxygen 09/20/24 20:13 09/20/24 20:21 09/20/24 20:25 Temperature 100.6 F H 102.1 F H 102.0 F H Pulse Rate 132 H 130 H 132 H Respiratory Rate 25 H 42 H 26 H Blood Pressure 94/46 L Pulse Oximetry 98 98 96 Oxygen Delivery Oxygen Flow Rate Fraction of Inspired Oxygen 09/20/24 20:30 09/20/24 20:31 09/20/24 20:35 Temperature 102.6 F H 102.6 F H 102.8 F H Pulse Rate 132 H 133 H 131 H Respiratory Rate 27 H 37 H 41 H Blood Pressure 105/62 102/52 L Pulse Oximetry 97 98 98 Oxygen Delivery Oxygen Flow Rate Fraction of Inspired Oxygen 09/20/24 20:40 09/20/24 20:45 09/20/24 20:46 Temperature 102.9 F H 103.0 F H 103.0 F H Pulse Rate 132 H 135 H 134 H Respiratory Rate 37 H 37 H 47 H Blood Pressure 105/59 L 111/78 Pulse Oximetry 98 98 99 Oxygen Delivery Oxygen Flow Rate Fraction of Inspired Oxygen 09/20/24 20:50 09/20/24 20:55 09/20/24 20:56 Temperature 103.1 F H 103.2 F H 103.2 F H Pulse Rate 140 H 125 H 120 H Respiratory Rate 40 H 41 H 38 H Blood Pressure 109/67 88/54 L Pulse Oximetry 98 99 98 Oxygen Delivery Oxygen Flow Rate Fraction of Inspired Oxygen 09/20/24 21:20 09/20/24 21:21 09/20/24 21:25 Temperature 103.5 F H 103.5 F H 103.6 F H Pulse Rate 133 H 132 H 133 H Respiratory Rate 46 H 31 H 31 H Blood Pressure 103/52 L 102/58 L Pulse Oximetry 98 96 97 Oxygen Delivery Oxygen Flow Rate Fraction of Inspired Oxygen 09/20/24 21:28 09/20/24 21:30 09/20/24 21:30 Temperature 103.7 F H 103.7 F H Pulse Rate 119 H 119 H Respiratory Rate 34 H Blood Pressure 94/41 L 94/41 L Pulse Oximetry 96 Oxygen Delivery Oxygen Flow Rate Fraction of Inspired Oxygen 09/20/24 21:30 09/20/24 21:31 09/20/24 21:35 Temperature 103.8 F H 103.8 F H Pulse Rate 119 H 133 H 130 H Respiratory Rate 22 H 32 H Blood Pressure 94/41 L 109/57 L Pulse Oximetry 98 97 Oxygen Delivery Oxygen Flow Rate Fraction of Inspired Oxygen 09/20/24 21:40 09/20/24 21:45 09/20/24 21:46 Temperature 103.9 F H 103.9 F H 103.9 F H Pulse Rate 128 H 128 H 132 H Respiratory Rate 27 H 28 H 22 H Blood Pressure 104/48 L 106/65 Pulse Oximetry 98 97 97 Oxygen Delivery Oxygen Flow Rate Fraction of Inspired Oxygen 09/20/24 21:50 09/20/24 22:00 09/20/24 22:32 Temperature 104.0 F H 103.8 F H 103.8 F H Pulse Rate 130 H 131 H 132 H Respiratory Rate 33 H 23 H 37 H Blood Pressure 95/57 L 113/58 L Pulse Oximetry 97 98 97 Oxygen Delivery Oxygen Flow Rate Fraction of Inspired Oxygen 09/20/24 22:35 09/20/24 22:40 09/20/24 22:45 Temperature 103.8 F H 103.7 F H 103.6 F H Pulse Rate 132 H 134 H 124 H Respiratory Rate 32 H 31 H 36 H Blood Pressure 97/62 L 88/54 L 96/61 L Pulse Oximetry 97 Oxygen Delivery Oxygen Flow Rate Fraction of Inspired Oxygen 09/20/24 22:46 09/20/24 23:22 09/20/24 23:26 Temperature 103.6 F H 103.1 F H Pulse Rate 124 H 137 H 138 H Respiratory Rate 29 H 11 L Blood Pressure 92/64 L Pulse Oximetry 95 97 Oxygen Delivery Oxygen Flow Rate Fraction of Inspired Oxygen 09/20/24 23:32 09/21/24 00:00 09/21/24 00:00 Temperature 103.0 F H Pulse Rate 136 H 127 H 127 H Respiratory Rate 37 H Blood Pressure 114/65 98/54 L 98/54 L Pulse Oximetry 96 Oxygen Delivery Oxygen Flow Rate Fraction of Inspired Oxygen 09/21/24 00:00 09/21/24 00:00 09/21/24 01:00 Temperature Pulse Rate 127 H 133 H Respiratory Rate 37 H Blood Pressure Pulse Oximetry 96 94 Oxygen Delivery Nasal Cannula Nasal Cannula Oxygen Flow Rate 2 3 Fraction of Inspired Oxygen 09/21/24 02:00 09/21/24 02:00 09/21/24 02:00 Temperature 103.1 F H Pulse Rate 133 H 136 H 136 H Respiratory Rate 20 Blood Pressure 118/90 118/90 Pulse Oximetry 90 Oxygen Delivery Oxygen Flow Rate Fraction of Inspired Oxygen 09/21/24 02:50 09/21/24 03:44 09/21/24 04:00 Temperature 103.1 F H 102.8 F H Pulse Rate 125 H 125 H Respiratory Rate 25 H Blood Pressure 69/41 L 103/67 Pulse Oximetry 96 Oxygen Delivery Oxygen Flow Rate Fraction of Inspired Oxygen 09/21/24 04:00 09/21/24 04:00 09/21/24 04:00 Temperature Pulse Rate 125 H 126 H 125 H Respiratory Rate 25 H Blood Pressure 103/67 Pulse Oximetry 96 Oxygen Delivery Nasal Cannula Oxygen Flow Rate 3 Fraction of Inspired Oxygen 09/21/24 04:44 09/21/24 04:54 09/21/24 05:40 Temperature 103.3 F H 103.2 F H Pulse Rate 127 H Respiratory Rate Blood Pressure 67/42 L Pulse Oximetry Oxygen Delivery Oxygen Flow Rate Fraction of Inspired Oxygen 09/21/24 05:45 09/21/24 06:00 09/21/24 06:00 Temperature 103.1 F H Pulse Rate 128 H 125 H 125 H Respiratory Rate 27 H Blood Pressure 75/35 L 97/65 L Pulse Oximetry 94 Oxygen Delivery Oxygen Flow Rate Fraction of Inspired Oxygen 09/21/24 06:00 09/21/24 06:00 09/21/24 07:08 Temperature Pulse Rate 125 H 125 H 134 H Respiratory Rate Blood Pressure 97/65 L 97/65 L 110/71 Pulse Oximetry Oxygen Delivery Oxygen Flow Rate Fraction of Inspired Oxygen 09/21/24 07:08 09/21/24 07:56 09/21/24 08:08 Temperature Pulse Rate 134 H 123 H Respiratory Rate 24 H Blood Pressure 110/71 Pulse Oximetry 98 Oxygen Delivery Nasal Cannula Oxygen Flow Rate 3 Fraction of Inspired Oxygen 09/21/24 08:25 09/21/24 11:10 09/21/24 11:12 Temperature Pulse Rate 131 H 148 H 140 H Respiratory Rate 22 H 24 H Blood Pressure Pulse Oximetry 100 Oxygen Delivery Mechanical Ventilation Oxygen Flow Rate Fraction of Inspired Oxygen 100 09/21/24 11:13 Temperature Pulse Rate 140 H Respiratory Rate 24 H Blood Pressure Pulse Oximetry Oxygen Delivery Oxygen Flow Rate Fraction of Inspired Oxygen Exam 2 Narrative: Exam Narrative: Well developed well-nourished female on the vent and sedated in no acute distress Skin is warm and dry without rash Head normocephalic atraumatic Eyes normal sclerae and conjunctivae Mouth normal lips teeth and gums as much as I can tell as she is orally intubated. Neck no nodes no thyromegaly no carotid bruits Axillae no nodes Lungs symmetric and minimal upper airway noise bilaterally to auscultation and normal to percussion Heart regular rate and rhythm without rub or gallop Abdomen bowel sounds positive soft nontender, no HSM, masses, or bruits. Extremities no cyanosis, clubbing, or edema Pulses 2+ equal in radial arteries Psychological not anxious or depressed Neuro alert and oriented x3 motor 5/5 cranial nerves 2-12 intact reflexes 2+ and equal in the biceps and patellar tendons cerebellar normal rapid alternating movements Results Lab Results 09/21/24 02:09 09/21/24 01:15 Lab results: Most recent lab results Calcium 6.2 mg/dL (8.4-10.2) L 09/21/24 01:15
[2024-09-21] MEDS: DOXYCYCLINE 100 MG/NS 100 ML 100 MG/100 ML BAG IVPB ×2 (12:00→20:54)
[2024-09-21] MEDS: PANTOPRAZOLE SODIUM IV 40 MG VIAL IV PUSH (12:11)
[2024-09-21] MEDS: OSELTAMIVIR PHOSPHATE ORAL SUSP 75 MG/12.5 ML SYRINGE PO (12:16)
[2024-09-21 12:32] LABS: Alveolar/Arterial O2 Gradient 513.8 mmHg; Base Excess ABG -14.4 mEq/l (+/-2.0); Fractional Inspired Oxygen 100 %; HCO3 ABG 13.4 mEq/l (22.0-26.0); Oxygen Content ABG 15.4 %vol (16.0-22.0); Oxygen Saturation ABG 98.6 % (95.0-100.0); Oxyhemoglobin 98.2 % THb (90.0-100.0); PCO2 ABG 38.2 mmHg (35.0-45.0); PO2 FiO2 Ratio Arterial Blood 1.61 %; Total Hemoglobin 10.9 g/dL (12.0-18.0)
[2024-09-21 12:34] LABS: Device VENTILATOR; Site Drawn LEFT BRACHIAL; pH ABG 7.162 (7.350-7.450)
[2024-09-21 12:35] LABS: Arterial Blood Gas PEEP 8 cmH2O; Arterial Blood Gas Pressure Support 0 cmH2O; Arterial Blood Gas Tidal Volume 370 ml; Arterial Blood Gas Vent Mode CMV; Arterial Blood Gas Ventilator rate 24 /MIN
[2024-09-21 13:26] LABS: Lactic Acid Reflex 2.4 mmol/L (0.7-2.0)
[2024-09-21 13:32] LABS: Albumin Level 2.7 g/dL (3.5-5.1); Anion Gap 12 mmol/L (4-12); Blood Urea Nitrogen 25 mg/dL (7-17); Calcium 5.8 mg/dL (8.4-10.2); Carbon Dioxide 15 mmol/L (22-30); Chloride 110 mmol/L (98-107); Creatine Kinase 213 U/L (30-135); Estimated CRCL calculation 40 ml/min; Estimated Glomerular Filt Rate 31; Glucose 82 mg/dL (65-110); Phosphorus 4.8 mg/dL (2.5-4.5); Sodium 137 mmol/L (137-145)
[2024-09-21] MEDS: CALCIUM GLUC 2,000 MG/NS 100ML 2,000 MG/100 ML BAG 100 MG IVPB (13:33)
[2024-09-21] MEDS: HYDROCORTISONE SODIUM SUCCINATE 100 MG/2 ML VIAL IV PUSH ×2 (13:44→20:55)
[2024-09-21 14:02] LABS: Lipase < 10 U/L (23-300)
[2024-09-21 15:01] LABS: Reflex Lactic Acid Yes or No Add Lactic
[2024-09-21 15:10] LABS: Eosinophil Urine None Seen % (None Seen); Urine Eos QC 2nd Tech Confirmed
[2024-09-21 15:48] LABS: Lactic Acid 1.8 mmol/L (0.7-2.0)
[2024-09-21] MEDS: NOREPINEPHRINE 8 MG/D5W 250 ML 8 MG/250 ML BAG 30 MG IV CONT (16:15)
[2024-09-21 16:41] LABS: Alveolar/Arterial O2 Gradient 265.2 mmHg; Base Excess ABG -11.6 mEq/l (+/-2.0); Fractional Inspired Oxygen 70 %; HCO3 ABG 13.8 mEq/l (22.0-26.0); Oxygen Content ABG 14.6 %vol (16.0-22.0); Oxygen Saturation ABG 99.3 % (95.0-100.0); Oxyhemoglobin 98.7 % THb (90.0-100.0); PCO2 ABG 29.3 mmHg (35.0-45.0); PO2 ABG 202.4 mmHg (80.0-100.0); PO2 FiO2 Ratio Arterial Blood 2.89 %; Total Hemoglobin 10.2 g/dL (12.0-18.0)
[2024-09-21 16:43] LABS: Site Drawn LEFT BRACHIAL
[2024-09-21 16:44] LABS: Arterial Blood Gas Ventilator rate 28 /MIN; Device VENTILATOR
[2024-09-21 16:45] LABS: Arterial Blood Gas PEEP 8 cmH2O; Arterial Blood Gas Pressure Support 0 cmH2O; Arterial Blood Gas Tidal Volume 400 ml; Arterial Blood Gas Vent Mode CMV
[2024-09-21] MEDS: SODIUM BICARBONATE 8.4% 150 MEQ in DEXTROSE 5% 1,000 ML 950 ML 75 MEQ IV CONT (17:27)
--- NOTE | 2024-09-21 18:59 | ED.PROCEDURE ---
Procedures Central Line Placement Left SC: Central Line Date: 09/20/24 Discussed w/ the patient/family/POA,the placement of a central venous catheter, including its clinical necessity/indication & associated potential risks, benifits and alternatives.: Yes The patient/family/POA understand(s) and acknowledge(s) the need to proceed with central venous catheter insertion as an important element of the patient's clinical management.: Yes Consent: I have discussed with the patient and/or surrogate, the non-emergent placement of a central venous catheter, including its clinical necessity/indication and associated potential risks and complications. The patient and/or surrogate understand(s) and acknowledge(s) the need to proceed with central venous catheter insertion as an important element of the patient's clinical management. Time Out Performed: Yes Patient Position: supine Patient placed on monitor/pulse ox: Yes Provider Prep: mask, sterile gown, sterile gloves and Max. sterile barrier precautions Central line lumen inserted: triple Post Procedure: sutured in place, good blood return and all ports aspirated, flushed, capped Post procedure x-ray: tip of catheter in good position Patient tolerated procedure: well Complications: none
[2024-09-21] MEDS: OSELTAMIVIR PHOSPHATE ORAL SUSP 30 MG/5 ML SYRINGE PO (20:52)
[2024-09-21 21:57] LABS: Vancomycin Trough 7.1 ug/mL (10.0-20.0)
[2024-09-21] MEDS: VANCOMYCIN 1,250 MG/NS 250 ML 1,250 MG/250 ML BAG 166.67 MG IVPB (23:05)
[2024-09-21] MEDS: MINERAL OIL/WHITE PETROLATUM OINTMENT 1 APPLIC EACH EYE (23:30)
[2024-09-22] VITALS (32 sets, daily range): BP systolic 92–124; BP diastolic 49–78; PULSE 95–134; RESP 24–33; TEMP 37.2–38.8; O2SAT 95–100
[2024-09-22] MEDS: ALBUMIN HUMAN 25% 25 GM/100 ML 100 ML IVPB ×3 (00:07→11:42)
[2024-09-22] MEDS: metroNIDAZOLE 500 MG/ISO 100ML 500 MG/100 ML BAG 100 MG IVPB ×2 (00:08→08:34)
[2024-09-22] MEDS: NOREPINEPHRINE 8 MG/D5W 250 ML 8 MG/250 ML BAG 20.63 MG IV CONT (02:00)
[2024-09-22] MEDS: LEVALBUTEROL NEB 1.25 MG/3 ML INHALATION ×3 (02:02→13:55)
[2024-09-22] MEDS: IPRATROPIUM BR 0.02% INH SOLN 0.5 MG/2.5 ML VIAL INHALATION ×3 (02:02→13:55)
[2024-09-22] MEDS: CENTRAL LINE FLUSH 10 ML IV PUSH ×2 (03:19→13:30)
[2024-09-22 03:56] LABS: Potassium Urine Random 26.5 meq/L; Sodium Urine Random 125 meq/L
[2024-09-22] MEDS: FENTANYL 2,500MCG/NS250ML(*CRX 2,500 MCG/250 ML BAG 15 MCG IV CONT (04:27)
[2024-09-22] MEDS: MIDAZOLAM 100MG/NS 100ML(*CRX) 100 MG/100 ML BAG 6 MG IV CONT (04:29)
[2024-09-22] MEDS: HYDROCORTISONE SODIUM SUCCINATE 100 MG/2 ML VIAL IV PUSH ×2 (05:59→13:28)
[2024-09-22 06:08] LABS: Alveolar/Arterial O2 Gradient 75.8 mmHg; Base Excess ABG -7.2 mEq/l (+/-2.0); Fractional Inspired Oxygen 25 %; HCO3 ABG 17.8 mEq/l (22.0-26.0); Oxygen Content ABG 12.4 %vol (16.0-22.0); Oxygen Saturation ABG 90.5 % (95.0-100.0); Oxyhemoglobin 89.8 % THb (90.0-100.0); PCO2 ABG 34.2 mmHg (35.0-45.0); PO2 ABG 61.8 mmHg (80.0-100.0); PO2 FiO2 Ratio Arterial Blood 2.47 %; Reduced Hemoglobin 10.2 %THb (0-5.0); Total Hemoglobin 9.8 g/dL (12.0-18.0); pH ABG 7.335 (7.350-7.450)
[2024-09-22 06:09] LABS: Arterial Blood Gas PEEP 8 cmH2O; Arterial Blood Gas Tidal Volume 400 ml; Arterial Blood Gas Vent Mode CMV; Arterial Blood Gas Ventilator rate 28 /MIN; Device VENTILATOR; Modified Allen's Test Pass; Site Drawn RIGHT RADIAL
[2024-09-22 06:30] LABS: Hematocrit 28.8 % (37.0-47.0); Hemoglobin 9.2 g/dL (12.0-15.0); Mean Corpuscular HGB Conc 31.9 g/dl (32-36); Mean Corpuscular Hemoglobin 26.4 pg (26-34); Mean Corpuscular Volume 82.5 fl (80-100); Mean Platelet Volume 9.5 fl (7.4-10.4); Platelet Count Result 143 k/mm3 (150-375); Red Blood Count 3.49 M/mm3 (4.2-5.4); White Blood Count 27.7 K/mm3 (4.5-10.0)
[2024-09-22] MEDS: ACETAMINOPHEN 325 MG TABLET 650 MG PO (06:35)
[2024-09-22 06:48] LABS: Albumin Level 3.3 g/dL (3.5-5.1); Alkaline Phosphatase 54 U/L (38-126); Anion Gap 15 mmol/L (4-12); Aspartate Amino Transferase 68 U/L (14-36); Bilirubin,Total 1.9 mg/dL (0.2-1.3); Blood Urea Nitrogen 25 mg/dL (7-17); Calcium 6.7 mg/dL (8.4-10.2); Carbon Dioxide 18 mmol/L (22-30); Chloride 105 mmol/L (98-107); Estimated CRCL calculation 42 ml/min; Estimated Glomerular Filt Rate 33; Glucose 118 mg/dL (65-110); Magnesium 1.3 mg/dL (1.6-2.3); Phosphorus 2.8 mg/dL (2.5-4.5); Potassium 3.5 mmol/L (3.4-5.0); Sodium 138 mmol/L (137-145)
[2024-09-22 06:53] LABS: INR 3.2; Prothrombin Time 33.4 Seconds (11.1-14.7)
[2024-09-22 06:54] LABS: Partial Thromboplastin Time 57.4 Seconds (22.3-36.8)
[2024-09-22 06:55] LABS: Lactic Acid Reflex 4.3 mmol/L (0.7-2.0)
[2024-09-22 06:56] LABS: Total Cells Counted 100
[2024-09-22 06:57] LABS: Alanine Aminotransferase 36 U/L (6-35); Anisocytosis 1+; Band Neutrophils Percent 16 % (0-6); Burr Cells 2+; Hypochromasia 1+; Lymphocytes Percent Manual 4 % (18-44); Monocytes Absolute Manual 0.27 K/mm3 (0.1-0.90); Monocytes Percent Manual 1 % (3-9); Neutrophils Absolute Manual 26.31 K/mm3 (1.7-7.2); Neutrophils Percent Manual 79 % (46-73); Platelet Estimate Slightly Decreased (Adequate); Schistocytes None Seen
[2024-09-22 08:28] LABS: Reflex Lactic Acid Yes or No Add Lactic
[2024-09-22] MEDS: CEFEPIME 2 GM/NS 50 ML 2 GM/50 ML BAG IVPB (08:32)
[2024-09-22] MEDS: DOXYCYCLINE 100 MG/NS 100 ML 100 MG/100 ML BAG IVPB (08:34)
[2024-09-22] MEDS: APIXABAN 5 MG TABLET 10 MG PO (08:50)
[2024-09-22] MEDS: guaiFENesin 12 HR 600 MG TABCR 1200 MG PO (08:50)
[2024-09-22] MEDS: PANTOPRAZOLE SODIUM IV 40 MG VIAL IV PUSH (08:50)
[2024-09-22] MEDS: MINERAL OIL/WHITE PETROLATUM OINTMENT 1 APPLIC EACH EYE (08:51)
[2024-09-22] MEDS: OSELTAMIVIR PHOSPHATE ORAL SUSP 30 MG/5 ML SYRINGE PO (08:51)
[2024-09-22] MEDS: MAGNESIUM SULF 2 GM/WATER 50ML 2 GM/50 ML BAG IVPB (08:57)
[2024-09-22] MEDS: SODIUM BICARBONATE 8.4% 150 MEQ in DEXTROSE 5% 1,000 ML 950 ML 75 MEQ IV CONT (10:39)
--- NOTE | 2024-09-22 11:10 | P.PNNP_ITS ---
Progress Note: A&P Assessment and Plan (1) LISANDRO (acute kidney injury): Code(s): N17.9 - Acute kidney failure, unspecified Status: Acute Assessment and Plan: The patient has acute kidney injury. Her creatinine was normal (0.7) back in June when she had her laparoscopic appendectomy. CT scan showed normal kidneys. No contrast was given. CK slightly elevated, not enough to affect the kidneys UA shows white cells but urine culture negative ( obtained after cefepime given but before vanco given.) Urine electrolytes non pre renal The cause of the LISANDRO is most likely multifactorial. The patient was most likely dehydrated when she came in. She had had nausea vomiting and diarrhea for a few days. The patient also was hypotensive which could contribute to kidney injury as well. The patient has septic shock and could have ATN from that as well. Her urine output seems to be maintaining at a reasonable rate. She had 800cc overnight. her creatinine is coming down very slowly. Continue to watch on current management. Discussed with Dr Joshua and nurse . Patient is being transferred to [facility] (2) Septic shock: Code(s): A41.9 - Sepsis, unspecified organism; R65.21 - Severe sepsis with septic shock Status: Acute Assessment and Plan: The patient is on pressors to support her blood pressure. group a strep growing in the blood Latest blood pressure reading is 90s to 100s. on levo but off vaso. (3) Elevated bilirubin: Code(s): R17 - Unspecified jaundice Status: Acute Assessment and Plan: Repeat bilirubin was better. (4) UTI (urinary tract infection): Code(s): N39.0 - Urinary tract infection, site not specified Status: Acute Assessment and Plan: Cultures are pending. She is on antibiotics. (5) Influenza A: Code(s): J10.1 - Influenza due to other identified influenza virus with other respiratory manifestations Status: Acute Assessment and Plan: On Tamiflu Subjective Date/time seen: 09/22/24 11:10 Interval history: patient is sedated and on the ventilator. and daughter are in the room. We discussed the case. Review of Systems Review of Systems: ROS unobtainable: Yes unobtainable due to endotracheal tube Exam Narrative: WDWN Female on the ventilator and sedated in NAD skin upper body rash head ncat lungs symmetric and coarse bilaterally cor reg no rub or gallop abd BS+ nontender and soft ext no edema. Objective Data Vital Signs Vital Signs: Vital Signs - 24 hr 09/21/24 11:12 09/21/24 11:13 09/21/24 12:00 Temperature Pulse Rate 140 H 140 H 127 H Respiratory Rate 24 H 24 H Blood Pressure 143/89 H Pulse Oximetry Oxygen Delivery Fraction of Inspired Oxygen 09/21/24 12:00 09/21/24 12:00 09/21/24 12:00 Temperature 102.1 F H Pulse Rate 128 H 126 H 128 H Respiratory Rate 24 H 24 H Blood Pressure 143/89 H Pulse Oximetry 100 100 Oxygen Delivery Mechanical Ventilation Fraction of Inspired Oxygen 100 09/21/24 12:00 09/21/24 12:00 09/21/24 12:00 Temperature Pulse Rate 128 H 128 H Respiratory Rate 24 H Blood Pressure 143/89 H Pulse Oximetry Oxygen Delivery Fraction of Inspired Oxygen 80 09/21/24 12:00 09/21/24 12:11 09/21/24 12:42 Temperature 102 F H Pulse Rate 128 H Respiratory Rate 24 H Blood Pressure Pulse Oximetry Oxygen Delivery Mechanical Ventilation Fraction of Inspired Oxygen 80 09/21/24 12:53 09/21/24 12:53 09/21/24 12:54 Temperature Pulse Rate 131 H 132 H 132 H Respiratory Rate 29 H 29 H Blood Pressure 149/81 H Pulse Oximetry Oxygen Delivery Fraction of Inspired Oxygen 09/21/24 13:30 09/21/24 13:31 09/21/24 13:35 Temperature 100.5 F H Pulse Rate 136 H 136 H Respiratory Rate 29 H Blood Pressure 137/39 L Pulse Oximetry Oxygen Delivery Fraction of Inspired Oxygen 09/21/24 13:39 09/21/24 13:50 09/21/24 14:00 Temperature Pulse Rate 137 H 124 H 124 H Respiratory Rate Blood Pressure 137/79 127/77 Pulse Oximetry Oxygen Delivery Fraction of Inspired Oxygen 09/21/24 14:00 09/21/24 14:00 09/21/24 14:00 Temperature Pulse Rate 84 136 H 136 H Respiratory Rate 18 29 H Blood Pressure 127/75 130/78 Pulse Oximetry 96 Oxygen Delivery Fraction of Inspired Oxygen 09/21/24 14:00 09/21/24 14:00 09/21/24 14:15 Temperature Pulse Rate 122 H 136 H 132 H Respiratory Rate 28 H 29 H Blood Pressure 130/78 Pulse Oximetry Oxygen Delivery Fraction of Inspired Oxygen 09/21/24 14:17 09/21/24 14:49 09/21/24 14:49 Temperature Pulse Rate 133 H 126 H 125 H Respiratory Rate 29 H 28 H Blood Pressure Pulse Oximetry 100 Oxygen Delivery Mechanical Ventilation Fraction of Inspired Oxygen 70 09/21/24 15:10 09/21/24 15:14 09/21/24 15:30 Temperature Pulse Rate 118 H 118 H 119 H Respiratory Rate 26 H Blood Pressure 90/61 L 80/63 L Pulse Oximetry Oxygen Delivery Fraction of Inspired Oxygen 09/21/24 16:00 09/21/24 16:00 09/21/24 16:00 Temperature Pulse Rate 118 H 118 H 119 H Respiratory Rate 32 H 30 H Blood Pressure 82/55 L Pulse Oximetry Oxygen Delivery Fraction of Inspired Oxygen 09/21/24 16:00 09/21/24 16:00 09/21/24 16:00 Temperature Pulse Rate 116 H 120 H Respiratory Rate 28 H Blood Pressure Pulse Oximetry 100 Oxygen Delivery Mechanical Ventilation Fraction of Inspired Oxygen 50 50 09/21/24 16:00 09/21/24 16:03 09/21/24 16:15 Temperature 99.6 F Pulse Rate 116 H 117 H 118 H Respiratory Rate 28 H Blood Pressure 82/53 L 82/53 L 82/55 L Pulse Oximetry 100 Oxygen Delivery Fraction of Inspired Oxygen 09/21/24 16:15 09/21/24 16:22 09/21/24 17:17 Temperature Pulse Rate 118 H 116 H 103 H Respiratory Rate Blood Pressure 82/55 L 81/60 L Pulse Oximetry 99 Oxygen Delivery Mechanical Ventilation Fraction of Inspired Oxygen 50 09/21/24 18:00 09/21/24 18:00 09/21/24 18:00 Temperature 99.9 F H Pulse Rate 107 H 110 H 107 H Respiratory Rate 30 H Blood Pressure 101/63 101/63 Pulse Oximetry 100 Oxygen Delivery Fraction of Inspired Oxygen 09/21/24 18:01 09/21/24 18:02 09/21/24 18:03 Temperature Pulse Rate 107 H 107 H 108 H Respiratory Rate 28 H 30 H Blood Pressure 101/63 Pulse Oximetry Oxygen Delivery Fraction of Inspired Oxygen 09/21/24 20:00 09/21/24 20:00 09/21/24 20:00 Temperature Pulse Rate 97 97 Respiratory Rate 28 H Blood Pressure Pulse Oximetry 99 Oxygen Delivery Mechanical Ventilation Fraction of Inspired Oxygen 40 40 09/21/24 20:00 09/21/24 20:00 09/21/24 20:00 Temperature 100.4 F H Pulse Rate 97 94 88 Respiratory Rate 28 H 28 H Blood Pressure 125/84 129/82 Pulse Oximetry 99 Oxygen Delivery Fraction of Inspired Oxygen 09/21/24 20:00 09/21/24 20:00 09/21/24 20:20 Temperature Pulse Rate 88 88 95 Respiratory Rate 28 H Blood Pressure 121/83 Pulse Oximetry 100 Oxygen Delivery Mechanical Ventilation Fraction of Inspired Oxygen 50 09/21/24 20:37 09/21/24 20:44 09/21/24 20:52 Temperature 100.7 F H Pulse Rate 97 92 Respiratory Rate 30 H 28 H Blood Pressure Pulse Oximetry Oxygen Delivery Fraction of Inspired Oxygen 09/21/24 21:41 09/21/24 21:52 09/21/24 22:00 Temperature 100.5 F H Pulse Rate 88 88 Respiratory Rate 28 H Blood Pressure 121/83 129/82 Pulse Oximetry 99 Oxygen Delivery Fraction of Inspired Oxygen 09/21/24 22:00 09/21/24 22:00 09/21/24 22:00 Temperature Pulse Rate 88 88 88 Respiratory Rate 28 H 28 H Blood Pressure 121/83 Pulse Oximetry Oxygen Delivery Fraction of Inspired Oxygen 09/21/24 22:05 09/21/24 22:30 09/21/24 23:10 Temperature Pulse Rate 93 93 94 Respiratory Rate Blood Pressure 129/79 129/79 Pulse Oximetry 98 Oxygen Delivery Mechanical Ventilation Fraction of Inspired Oxygen 40 09/21/24 23:31 09/21/24 23:50 09/21/24 23:56 Temperature Pulse Rate 97 111 H 106 H Respiratory Rate Blood Pressure 123/75 116/71 117/76 Pulse Oximetry Oxygen Delivery Fraction of Inspired Oxygen 09/22/24 00:00 09/22/24 00:00 09/22/24 00:00 Temperature 99.4 F Pulse Rate 109 H 110 H Respiratory Rate 28 H 28 H Blood Pressure 109/65 Pulse Oximetry 96 95 Oxygen Delivery Mechanical Ventilation Fraction of Inspired Oxygen 30 30 09/22/24 00:00 09/22/24 00:00 09/22/24 00:00 Temperature Pulse Rate 109 H 105 H 107 H Respiratory Rate 28 H 28 H Blood Pressure Pulse Oximetry Oxygen Delivery Fraction of Inspired Oxygen 09/22/24 00:09 09/22/24 00:30 09/22/24 00:58 Temperature Pulse Rate 110 H 106 H 105 H Respiratory Rate Blood Pressure 116/71 101/64 101/64 Pulse Oximetry Oxygen Delivery Fraction of Inspired Oxygen 09/22/24 02:00 09/22/24 02:00 09/22/24 02:00 Temperature 98.9 F Pulse Rate 102 H 101 H 102 H Respiratory Rate 28 H 28 H Blood Pressure 116/72 116/72 Pulse Oximetry 96 Oxygen Delivery Fraction of Inspired Oxygen 09/22/24 02:00 09/22/24 02:00 09/22/24 02:02 Temperature Pulse Rate 102 H 102 H 95 Respiratory Rate 28 H 28 H Blood Pressure 116/72 Pulse Oximetry Oxygen Delivery Fraction of Inspired Oxygen 09/22/24 02:02 09/22/24 02:15 09/22/24 02:23 Temperature Pulse Rate 97 99 102 H Respiratory Rate 28 H Blood Pressure 116/72 Pulse Oximetry 98 Oxygen Delivery Mechanical Ventilation Fraction of Inspired Oxygen 09/22/24 02:45 09/22/24 03:15 09/22/24 03:21 Temperature Pulse Rate 102 H 102 H 109 H Respiratory Rate 28 H Blood Pressure 118/73 105/65 Pulse Oximetry 100 Oxygen Delivery Mechanical Ventilation Fraction of Inspired Oxygen 30 09/22/24 03:21 09/22/24 03:28 09/22/24 03:29 Temperature 99 F Pulse Rate 102 H 102 H Respiratory Rate 28 H 28 H Blood Pressure 116/72 105/65 Pulse Oximetry 96 96 Oxygen Delivery Fraction of Inspired Oxygen 30 09/22/24 04:00 09/22/24 04:00 09/22/24 04:00 Temperature Pulse Rate 108 H 108 H 113 H Respiratory Rate Blood Pressure 105/65 105/65 Pulse Oximetry Oxygen Delivery Fraction of Inspired Oxygen 09/22/24 04:02 09/22/24 04:27 09/22/24 04:29 Temperature Pulse Rate 108 H 108 H 108 H Respiratory Rate 28 H 28 H 28 H Blood Pressure Pulse Oximetry Oxygen Delivery Fraction of Inspired Oxygen 09/22/24 04:29 09/22/24 05:06 09/22/24 05:33 Temperature Pulse Rate 108 H 128 H 119 H Respiratory Rate 28 H 28 H Blood Pressure 96/67 L Pulse Oximetry 96 100 Oxygen Delivery Mechanical Ventilation Fraction of Inspired Oxygen 25 09/22/24 06:00 09/22/24 06:00 09/22/24 06:00 Temperature Pulse Rate 134 H 119 H 119 H Respiratory Rate 28 H 28 H Blood Pressure 97/63 L Pulse Oximetry Oxygen Delivery Fraction of Inspired Oxygen 09/22/24 06:00 09/22/24 06:35 09/22/24 07:36 Temperature 102 F H Pulse Rate 119 H 128 H Respiratory Rate Blood Pressure 97/63 L Pulse Oximetry 98 Oxygen Delivery Mechanical Ventilation Fraction of Inspired Oxygen 25 09/22/24 07:36 09/22/24 07:51 09/22/24 08:00 Temperature 101.4 F H Pulse Rate 128 H 128 H 129 H Respiratory Rate 32 H 24 H 33 H Blood Pressure 92/49 L Pulse Oximetry 95 Oxygen Delivery Fraction of Inspired Oxygen 09/22/24 08:00 09/22/24 08:00 09/22/24 08:00 Temperature Pulse Rate 129 H 129 H 129 H Respiratory Rate 33 H 33 H Blood Pressure 92/49 L Pulse Oximetry Oxygen Delivery Fraction of Inspired Oxygen 09/22/24 08:00 09/22/24 08:00 09/22/24 08:00 Temperature Pulse Rate 129 H 114 H 128 H Respiratory Rate 30 H Blood Pressure 92/49 L Pulse Oximetry 100 Oxygen Delivery Mechanical Ventilation Fraction of Inspired Oxygen 45 09/22/24 08:00 09/22/24 08:42 09/22/24 10:00 Temperature 100.7 F H Pulse Rate 113 H Respiratory Rate Blood Pressure Pulse Oximetry Oxygen Delivery Fraction of Inspired Oxygen 45 09/22/24 10:32 Temperature Pulse Rate 114 H Respiratory Rate Blood Pressure Pulse Oximetry 98 Oxygen Delivery Mechanical Ventilation Fraction of Inspired Oxygen 45 Intake/Output Intake/Output: Intake & Output 09/19/24 09/20/24 09/21/24 09/22/24 23:59 23:59 23:59 23:59 Intake Total 3352.0 3232.7 1784.5 Output Total 1400 800 Balance 3352.0 1832.7 984.5 Meds/Results Medications: Active Medications Generic Name Dose Route Start Last Admin Trade Name Freq PRN Reason Stop Dose Admin Acetaminophen 650 mg 09/20/24 16:11 09/22/24 06:35 Acetaminophen 325 Mg Tablet PO 650 mg Q4H PRN Administration Mild Pain (1-3) or Fever Acetaminophen 650 mg 09/20/24 21:13 09/20/24 21:28 Acetaminophen 650 Mg Suppository RECTAL 650 mg Q6H PRN Administration Mild Pain (1-3) or Fever Hydrocodone Bitart/Acetaminophen 1 tab 09/20/24 21:16 09/21/24 00:30 Hydrocodone/Acetaminophen (*Crx) 5-325 Mg Tablet PO 1 tab Q4H PRN Administration Pain Rated 4-6 Apixaban 10 mg 09/20/24 21:00 09/22/24 08:50 Apixaban 5 Mg Tablet PO 09/27/24 09:01 10 mg Q12HR LUIS Administration Apixaban 5 mg 09/27/24 21:00 Apixaban 5 Mg Tablet PO Q12HR LUIS Diphenhydramine HCl 50 mg 09/22/24 10:20 Diphenhydramine Hcl Inj 50 Mg/Ml Vial IV PUSH 09/23/24 04:21 Q6H LUIS Guaifenesin 1,200 mg 09/21/24 09:00 09/22/24 08:50 Guaifenesin 12 Hr 600 Mg Tabcr PO 1,200 mg Q12HR LUIS Administration Hydrocortisone Sodium Succinate 100 mg 09/21/24 14:00 09/22/24 05:59 Hydrocortisone Sodium Succinate 100 Mg/2 Ml Vial IV PUSH 100 mg Q8HR LUIS Administration Norepinephrine Bitartrate 8 mg in 250 mls @ 18.75 mls/hr 09/20/24 19:45 09/22/24 08:00 Levophed 8 Mg/D5w 250 Ml IV CONT 10 mcg/min .[id number] LUIS 18.75 mls/hr Titration Protocol 10 MCG/MIN Vasopressin 100 units/ 100 mls @ 0 mls/hr 09/21/24 03:10 09/22/24 08:00 Dextrose IV CONT 0 units/min .Q0M LUIS 0 mls/hr Titration Protocol 0 UNITS/MIN Metronidazole 500 mg in 100 mls @ 100 mls/hr 09/21/24 08:00 09/22/24 10:01 Flagyl 500 Mg/Iso Soln 100 Ml IVPB Infused Q8H LUIS Infusion Albumin Human 100 mls @ 60 mls/hr 09/21/24 07:57 09/22/24 07:26 Albutein IVPB 09/22/24 13:39 Infused Q6HR LUIS Infusion Cefepime HCl 2 gm in 50 mls @ 100 mls/hr 09/21/24 10:35 09/22/24 10:01 Maxipime 2 Gm/Ns 50 Ml IVPB Infused Q12HR LUIS Infusion Doxycycline Hyclate 100 mg in 100 mls @ 100 mls/hr 09/21/24 10:35 09/22/24 10:01 Vibramycin 100 Mg/Ns 100 Ml IVPB Infused Q12HR LUIS Infusion Midazolam HCl 100 mg in 100 mls @ 6 mls/hr 09/21/24 11:00 09/22/24 08:00 Versed 100 Mg/Ns 100 Ml IV CONT 6 mg/hr .[id number] LUIS 6 mls/hr Titration Protocol 6 MG/HR Fentanyl Citrate 2,500 mcg in 250 mls @ 15 mls/hr 09/21/24 11:00 09/22/24 08:00 Fentanyl 2,500 Mcg/Ns 250 Ml IV CONT 150 mcg/hr .[id number] LUIS 15 mls/hr Titration Protocol 150 MCG/HR Sodium Bicarbonate 150 meq/ 1,100 mls @ 75 mls/hr 09/21/24 17:30 09/22/24 10:39 Dextrose IV CONT 75 mls/hr .[id number] LUIS Administration Potassium Chloride 100 mls @ 25 mls/hr 09/22/24 10:19 Kcl 40 Meq/Water 100 Ml IVPB 09/22/24 14:18 ONCE ONE Ipratropium [place] 0.5 mg 09/21/24 08:05 09/22/24 07:36 Ipratropium Br 0.02% Inh Soln 0.5 Mg/2.5 Ml Vial INHALATION 0.5 mg Q6HRT LUIS Administration Levalbuterol HCl 1.25 mg 09/21/24 08:05 09/22/24 07:36 Levalbuterol Neb 1.25 Mg/3 Ml INHALATION 1.25 mg Q6HRT LUIS Administration Multi-Ingred Cream/Lotion/Oil/Oint 1 applic 09/21/24 21:00 09/22/24 08:51 Mineral Oil/White Petrolatum Ointment EACH EYE 1 applic Q12HR LUIS Administration Ondansetron HCl 4 mg 09/20/24 16:11 09/21/24 10:55 Ondansetron Inj 4 Mg/2 Ml Vial IV PUSH 4 mg Q4H PRN Administration Nausea Oseltamivir Phosphate 30 mg 09/21/24 21:00 09/22/24 08:51 Oseltamivir Phosphate Oral Susp 30 Mg/5 Ml Syringe PO 09/25/24 21:01 30 mg Q12HR LUIS Administration Pantoprazole Sodium 40 mg 09/22/24 09:00 09/22/24 08:50 Pantoprazole Sodium Iv 40 Mg Vial IV PUSH 40 mg QAM LUIS Administration Sodium Chloride 10 ml 09/20/24 22:00 09/22/24 03:19 Central Line Flush IV PUSH 10 ml Q8HR LUIS Administration Sodium Chloride 20 ml 09/20/24 19:40 Central Line Flush IV PUSH PRN PRN after blood draws Vancomycin HCl 1 each 09/20/24 22:42 Vancomycin For Acute Kidney Injury IVPB PRN PRN Vancomycin Protocol Radiology Results: ITS Impressions Pulmonary Perfusion Imaging 09/20/24 15:19 IMPRESSION: 1. Intermediate probability for pulmonary embolism. Chest/Abdomen/Pelvis CT 09/20/24 20:26 IMPRESSION: CHEST: 1. Right pleural effusion with right basal pneumonia. 2. One 1.2 cm lymph node anterior to the maria l. ABDOMEN/PELVIS: 1. No evidence of appendicitis, diverticulitis or intestinal obstruction. 2. Fluid in the large bowel suggestive of diarrhea versus enteritis. Clinical correlation advised. Abdomen X-Ray 09/21/24 12:00 IMPRESSION: 1. Nasogastric tube tip in the stomach. Renal Ultrasound 09/21/24 12:26 IMPRESSION: 1. Normal kidneys. No hydronephrosis. Venous Doppler Study 09/21/24 13:19 IMPRESSION: 1. No deep venous thrombosis. Chest X-Ray 09/22/24 07:15 Impression: Moderate to large right pleural effusion with right-sided pulmonary edema/atelectasis versus pneumonia. Left lung essentially clear. Support tubes, as above. Labs Labs: Laboratory Results - last 24 hr 09/21/24 09/21/24 09/21/24 12:27 12:37 12:45 WBC RBC Hgb Hct MCV MCH MCHC RDW Plt Count MPV Immature Gran % (Auto) Neut % (Auto) Lymph % (Auto) [place] % (Auto) Eos % (Auto) Baso % (Auto) Lymph # (Auto) [place] # (Auto) Eos # (Auto) Baso # (Auto) Abs Immat Gran (auto) Absolute Neuts (auto) Absolute Nucleated RBC Total Counted Neutrophils % (Manual) Band Neutrophils % Lymphocytes % (Manual) Monocytes % (Manual) Nucleated RBC % Abs Neuts (Manual) Abs Lymphs (Manual) Abs Monocytes (Manual) Platelet Estimate Hypochromasia Anisocytosis Mize Cells Schistocytes PT INR APTT Puncture Site Left brachial ABG pH 7.162 L* ABG pCO2 38.2 ABG pO2 161.0 H ABG PO2/FiO2 Ratio 1.61 ABG HCO3 13.4 L ABG O2 Saturation 98.6 ABG O2 Content 15.4 L ABG Base Excess -14.4 A-a Gradient 513.8 Oxyhemoglobin 98.2 Carboxyhemoglobin Methemoglobin Reduced Hemoglobin Total Hemoglobin 10.9 L O2 Delivery Device Ventilator O2 Liters/Min 0.0 Minute Volume Not Reportable Vent Rate 24 Vent Mode Cmv FiO2 100 Tidal Volume 370 PEEP 8 Peak Inspir Pressure Not Reportable Pressure Support 0 Sodium 137 Potassium 4.0 Chloride 110 H Carbon Dioxide 15 L Anion Gap 12 BUN 25 H Creatinine 1.88 H Estim Creat Clear Calc 40 Estimated GFR 31 L Glucose 82 Lactic Acid 2.4 H Calcium 5.8 L* Phosphorus 4.8 H Magnesium Total Bilirubin AST ALT Alkaline Phosphatase Total Creatine Kinase 213 H Total Protein Albumin 2.7 L Lipase < 10 L Urine Eosinophils Ur Random Sodium Ur Random Potassium Urine Creatinine Vancomycin Trough 09/21/24 09/21/24 09/21/24 14:19 15:27 15:57 WBC RBC Hgb Hct MCV MCH MCHC RDW Plt Count MPV Immature Gran % (Auto) Neut % (Auto) Lymph % (Auto) [place] % (Auto) Eos % (Auto) Baso % (Auto) Lymph # (Auto) [place] # (Auto) Eos # (Auto) Baso # (Auto) Abs Immat Gran (auto) Absolute Neuts (auto) Absolute Nucleated RBC Total Counted Neutrophils % (Manual) Band Neutrophils % Lymphocytes % (Manual) Monocytes % (Manual) Nucleated RBC % Abs Neuts (Manual) Abs Lymphs (Manual) Abs Monocytes (Manual) Platelet Estimate Hypochromasia Anisocytosis Farideh Cells Schistocytes PT INR APTT Puncture Site Left brachial ABG pH 7.290 L* ABG pCO2 29.3 L ABG pO2 202.4 H ABG PO2/FiO2 Ratio 2.89 ABG HCO3 13.8 L ABG O2 Saturation 99.3 ABG O2 Content 14.6 L ABG Base Excess -11.6 A-a Gradient 265.2 Oxyhemoglobin 98.7 Carboxyhemoglobin Methemoglobin Reduced Hemoglobin Total Hemoglobin 10.2 L O2 Delivery Device Ventilator O2 Liters/Min 0.0 Minute Volume Not Reportable Vent Rate 28 Vent Mode Cmv FiO2 70 Tidal Volume 400 PEEP 8 Peak Inspir Pressure Not Reportable Pressure Support 0 Sodium Potassium Chloride Carbon Dioxide Anion Gap BUN Creatinine Estim Creat Clear Calc Estimated GFR Glucose Lactic Acid 1.8 Calcium Phosphorus Magnesium Total Bilirubin AST ALT Alkaline Phosphatase Total Creatine Kinase Total Protein Albumin Lipase Urine Eosinophils None seen Ur Random Sodium 125 Ur Random Potassium 26.5 Urine Creatinine 33.0 Vancomycin Trough 09/21/24 09/22/24 09/22/24 21:09 05:52 06:17 WBC 27.7 H RBC 3.49 L Hgb 9.2 L Hct 28.8 L MCV 82.5 MCH 26.4 MCHC 31.9 L RDW 14.0 Plt Count 143 L MPV 9.5 Immature Gran % (Auto) Not Reportable Neut % (Auto) Not Reportable Lymph % (Auto) Not Reportable [place] % (Auto) Not Reportable Eos % (Auto) Not Reportable Baso % (Auto) Not Reportable Lymph # (Auto) Not Reportable [place] # (Auto) Not Reportable Eos # (Auto) Not Reportable Baso # (Auto) Not Reportable Abs Immat Gran (auto) Not Reportable Absolute Neuts (auto) Not Reportable Absolute Nucleated RBC Not Reportable Total Counted 100 Neutrophils % (Manual) 79 H Band Neutrophils % 16 H Lymphocytes % (Manual) 4 L Monocytes % (Manual) 1 L Nucleated RBC % Not Reportable Abs Neuts (Manual) 26.31 H Abs Lymphs (Manual) 1.10 Abs Monocytes (Manual) 0.27 Platelet Estimate Slightly decreased Hypochromasia 1+ Anisocytosis 1+ Farideh Cells 2+ Schistocytes None seen PT 33.4 H INR 3.2 APTT 57.4 H Puncture Site Right radial ABG pH 7.335 L ABG pCO2 34.2 L ABG pO2 61.8 L ABG PO2/FiO2 Ratio 2.47 ABG HCO3 17.8 L ABG O2 Saturation 90.5 L ABG O2 Content 12.4 L ABG Base Excess -7.2 A-a Gradient 75.8 Oxyhemoglobin 89.8 L Carboxyhemoglobin 0.0 Methemoglobin 0.0 Reduced Hemoglobin 10.2 H Total Hemoglobin 9.8 L O2 Delivery Device Ventilator O2 Liters/Min Not Reportable Minute Volume Not Reportable Vent Rate 28 Vent Mode Cmv FiO2 25 Tidal Volume 400 PEEP 8 Peak Inspir Pressure Not Reportable Pressure Support Not Reportable Sodium 138 Potassium 3.5 Chloride 105 Carbon Dioxide 18 L Anion Gap 15 H BUN 25 H Creatinine 1.78 H Estim Creat Clear Calc 42 Estimated GFR 33 L Glucose 118 H Lactic Acid 4.3 H* Calcium 6.7 L Phosphorus 2.8 Magnesium 1.3 L Total Bilirubin 1.9 H AST 68 H ALT 36 H Alkaline Phosphatase 54 Total Creatine Kinase Total Protein 6.0 L Albumin 3.3 L Lipase Urine Eosinophils Ur Random Sodium Ur Random Potassium Urine Creatinine Vancomycin Trough 7.1 L
--- NOTE | 2024-09-22 11:30 | P.PNINT_ITS ---
Progress Note: A&P Assessment and Plan (1) Septic shock: Code(s): A41.9 - Sepsis, unspecified organism; R65.21 - Severe sepsis with septic shock Status: Acute Assessment and Plan: Patient presented with shortness of breath, cough, general malaise and fatigue, fevers and chills, body aches which have been worsening since 09/18/24 -patient received 4 L IV fluid bolus in the ER despite which her blood pressures were low, a a central line was inserted in the ED on 09/20 -currently on Levophed , maintain SBP > 100 mmHg and MAP > for 65 mmHg -off vasopressin -continue cefepime, vancomycin and Flagyl (09/21) -09/20: blood cultures growing group A Streptococcus 1 of 2 bottles -09/20: Urine cultures negative so far -continues trace to steroids hydrocortisone for septic shock and pneumonia (2) Acute hypoxic respiratory failure: Code(s): J96.01 - Acute respiratory failure with hypoxia Status: Acute Assessment and Plan: Acute hypoxic respiratory failure, patient has been tachypneic, tachycardic, shallow breathing, possible PE with intermediate probability on V/Q scan -discussed with patient and , both agreeable for intubation as she is significantly tachypneic with shallow breaths, tachycardia, now nausea and vomiting with risk of aspiration -09/21/2024: Patient successfully intubated -continue CMV mode of ventilation, peep of 8, 45% FiO2 -chest x-ray and ABGs reviewed, ventilator adjusted -continue continue bronchodilators -sedated with fentanyl and Versed infusion, maintain RASS of -2, daily SBT and SAT (3) LISANDRO (acute kidney injury): Code(s): N17.9 - Acute kidney failure, unspecified Status: Acute Assessment and Plan: Patient presented with diarrhea, fatigue, malaise, influenza A, dehydration -was adequately hydrated in the ER with 4 L IV fluids -continue maintenance IV fluids -creatinine on admission was 2.07 (baseline creatinine 0.70 in June 2024) -will obtain urine lytes, CK level, urine Na is on feels -check renal ultrasound -nephrology has been consulted -continue to monitor urine output, electrolytes and renal function -continue maintenance IV fluids with sodium bicarb infusion Patient also has known anion gap metabolic acidosis which could be related to diarrhea and or IV fluids, continue to monitor (4) Influenza A: Code(s): J10.1 - Influenza due to other identified influenza virus with other respiratory manifestations Status: Acute Assessment and Plan: Continue Tamiflu, renally dosed (5) Diarrhea: Code(s): R19.7 - Diarrhea, unspecified Status: Acute Assessment and Plan: Diarrhea has improved, continue hydration (6) Pulmonary embolism: Code(s): I26.99 - Other pulmonary embolism without acute cor pulmonale Status: Acute Assessment and Plan: Patient had elevated D-dimer, V/Q scan showed intermediate probability -patient started on Eliquis -09/21: Lower extremity venous Dopplers negative for DVT Plan DVT prophylaxis: Eliquis Stress ulcer prophylaxis: Protonix Nutrition: NPO for now Code Status: Full code Critical Care Time Spent: 42 minutes 09/22: Discussed with patient regarding worsening WBC count, lactic acid, pleural effusion/pneumonia/possible empyema. Discussed with him regarding the positive blood cultures, acute kidney injury. I discussed with him regarding transferred to higher level of care to which he is agreeable. Patient has been accepted to [facility] in [place] on [facility], accepting physician is Dr. Caraballo. Patient be transferred today on 09/21/202409/21: Discussed with patient and her prior to intubation, both of them consented to intubation and mechanical ventilation. I discussed with them regarding radiology reports, blood work. They are aware that patient is hypotensive and requiring 2 blood pressure support medications and that she is on antibiotic for possible infection/pneumonia. I answered all the questions Due to a high probability of clinically significant, life threatening deterioration, the patient required my highest level of preparedness to intervene emergently and I personally spent this critical care time directly and personally managing the patient. This critical care time included obtaining a history; examining the patient; pulse oximetry; ordering and review of studies; arranging urgent treatment with development of a management plan; evaluation of patient's response to treatment; frequent reassessment; and discussions with other providers. It was exclusive of separately billable procedures and treating other patients and teaching time. Please see Assessment and Plan section and the rest of the note for further information on patient assessment and treatment This dictation may have been done utilizing a voice recognition system. Attempts have been made to correct errors. However, there may be uncorrected grammatical, spelling, and recognitions errors present. Subjective Date/time seen: 09/22/24 11:30 Interval history: Reason for consult: Acute respiratory failure, septic shock, acute kidney injury, influenza A, pneumonia, diarrhea 09/22/2024: Patient seen and examined the ICU, remains intubated on CMV mode of ventilation, peep of 8, 45% FiO2. Sedated with fentanyl and Versed infusion, patient remains on Levophed. Now off vasopressin. WBC count trending up, creatinine improving, adequate urine output. T-max of a 102.0? F lactic acid is increased to 4.3, LFTs trending up, INR of 3.5. Patient does not open her eyes or follow simple commands Review of Systems Review of Systems: ROS unobtainable: Yes unobtainable due to endotracheal tube, unobtainable due to medical condition and unobtainable due to mental status Exam Narrative: General: Remains intubated and sedated, no acute distress HEENT:? Pupils in equal and reactive, sclera is flushed Neck:? Supple Respiratory:? Coarse breath sounds bilaterally, Rt > Lt, decreased air entry at bilateral bases, no wheezing Cardiac:? S1-S2 is normal, tachycardia Abdomen:? Soft, nontender, nondistended, hypoactive bowel sounds Extremities:? Edema noted in upper and lower extremities, warm, palpable pedal pulses Neuro:? Patient is awake, alert, oriented, Skin:? Macular papular rash on the torso, abdominal, lower extremities up to the thigh, mid upper extremities, back, blanchable Psych:? Unable to assess at this time Objective Data Vital Signs Vital Signs: Vital Signs - 24 hr 09/21/24 12:00 09/21/24 12:00 09/21/24 12:00 Temperature Pulse Rate 127 H 128 H 126 H Respiratory Rate 24 H Blood Pressure 143/89 H Pulse Oximetry 100 Oxygen Delivery Mechanical Ventilation Fraction of Inspired Oxygen 100 09/21/24 12:00 09/21/24 12:00 09/21/24 12:00 Temperature 102.1 F H Pulse Rate 128 H 128 H Respiratory Rate 24 H Blood Pressure 143/89 H 143/89 H Pulse Oximetry 100 Oxygen Delivery Fraction of Inspired Oxygen 80 09/21/24 12:00 09/21/24 12:00 09/21/24 12:11 Temperature 102 F H Pulse Rate 128 H 128 H Respiratory Rate 24 H 24 H Blood Pressure Pulse Oximetry Oxygen Delivery Fraction of Inspired Oxygen 09/21/24 12:42 09/21/24 12:53 09/21/24 12:53 Temperature Pulse Rate 131 H 132 H Respiratory Rate 29 H Blood Pressure 149/81 H Pulse Oximetry Oxygen Delivery Mechanical Ventilation Fraction of Inspired Oxygen 80 09/21/24 12:54 09/21/24 13:30 09/21/24 13:31 Temperature Pulse Rate 132 H 136 H 136 H Respiratory Rate 29 H 29 H Blood Pressure 137/39 L Pulse Oximetry Oxygen Delivery Fraction of Inspired Oxygen 09/21/24 13:35 09/21/24 13:39 09/21/24 13:50 Temperature 100.5 F H Pulse Rate 137 H 124 H Respiratory Rate Blood Pressure 137/79 127/77 Pulse Oximetry Oxygen Delivery Fraction of Inspired Oxygen 09/21/24 14:00 09/21/24 14:00 09/21/24 14:00 Temperature Pulse Rate 124 H 84 136 H Respiratory Rate 18 Blood Pressure 127/75 130/78 Pulse Oximetry 96 Oxygen Delivery Fraction of Inspired Oxygen 09/21/24 14:00 09/21/24 14:00 09/21/24 14:00 Temperature Pulse Rate 136 H 122 H 136 H Respiratory Rate 29 H 28 H Blood Pressure 130/78 Pulse Oximetry Oxygen Delivery Fraction of Inspired Oxygen 09/21/24 14:15 09/21/24 14:17 09/21/24 14:49 Temperature Pulse Rate 132 H 133 H 126 H Respiratory Rate 29 H 29 H Blood Pressure Pulse Oximetry 100 Oxygen Delivery Mechanical Ventilation Fraction of Inspired Oxygen 70 09/21/24 14:49 09/21/24 15:10 09/21/24 15:14 Temperature Pulse Rate 125 H 118 H 118 H Respiratory Rate 28 H 26 H Blood Pressure 90/61 L Pulse Oximetry Oxygen Delivery Fraction of Inspired Oxygen 09/21/24 15:30 09/21/24 16:00 09/21/24 16:00 Temperature Pulse Rate 119 H 118 H 118 H Respiratory Rate 32 H 30 H Blood Pressure 80/63 L Pulse Oximetry Oxygen Delivery Fraction of Inspired Oxygen 09/21/24 16:00 09/21/24 16:00 09/21/24 16:00 Temperature Pulse Rate 119 H 116 H 120 H Respiratory Rate 28 H Blood Pressure 82/55 L Pulse Oximetry 100 Oxygen Delivery Mechanical Ventilation Fraction of Inspired Oxygen 50 09/21/24 16:00 09/21/24 16:00 09/21/24 16:03 Temperature 99.6 F Pulse Rate 116 H 117 H Respiratory Rate 28 H Blood Pressure 82/53 L 82/53 L Pulse Oximetry 100 Oxygen Delivery Fraction of Inspired Oxygen 50 09/21/24 16:15 09/21/24 16:15 09/21/24 16:22 Temperature Pulse Rate 118 H 118 H 116 H Respiratory Rate Blood Pressure 82/55 L 82/55 L 81/60 L Pulse Oximetry Oxygen Delivery Fraction of Inspired Oxygen 09/21/24 17:17 09/21/24 18:00 09/21/24 18:00 Temperature Pulse Rate 103 H 107 H 110 H Respiratory Rate Blood Pressure 101/63 Pulse Oximetry 99 Oxygen Delivery Mechanical Ventilation Fraction of Inspired Oxygen 50 09/21/24 18:00 09/21/24 18:01 09/21/24 18:02 Temperature 99.9 F H Pulse Rate 107 H 107 H 107 H Respiratory Rate 30 H 28 H 30 H Blood Pressure 101/63 Pulse Oximetry 100 Oxygen Delivery Fraction of Inspired Oxygen 09/21/24 18:03 09/21/24 20:00 09/21/24 20:00 Temperature Pulse Rate 108 H 97 Respiratory Rate 28 H Blood Pressure 101/63 Pulse Oximetry 99 Oxygen Delivery Mechanical Ventilation Fraction of Inspired Oxygen 40 40 09/21/24 20:00 09/21/24 20:00 09/21/24 20:00 Temperature 100.4 F H Pulse Rate 97 97 94 Respiratory Rate 28 H Blood Pressure 125/84 129/82 Pulse Oximetry 99 Oxygen Delivery Fraction of Inspired Oxygen 09/21/24 20:00 09/21/24 20:00 09/21/24 20:00 Temperature Pulse Rate 88 88 88 Respiratory Rate 28 H 28 H Blood Pressure 121/83 Pulse Oximetry Oxygen Delivery Fraction of Inspired Oxygen 09/21/24 20:20 09/21/24 20:37 09/21/24 20:44 Temperature Pulse Rate 95 97 92 Respiratory Rate 30 H 28 H Blood Pressure Pulse Oximetry 100 Oxygen Delivery Mechanical Ventilation Fraction of Inspired Oxygen 50 09/21/24 20:52 09/21/24 21:41 09/21/24 21:52 Temperature 100.7 F H 100.5 F H Pulse Rate 88 Respiratory Rate 28 H Blood Pressure 121/83 Pulse Oximetry 99 Oxygen Delivery Fraction of Inspired Oxygen 09/21/24 22:00 09/21/24 22:00 09/21/24 22:00 Temperature Pulse Rate 88 88 88 Respiratory Rate 28 H 28 H Blood Pressure 129/82 Pulse Oximetry Oxygen Delivery Fraction of Inspired Oxygen 09/21/24 22:00 09/21/24 22:05 09/21/24 22:30 Temperature Pulse Rate 88 93 93 Respiratory Rate Blood Pressure 121/83 129/79 129/79 Pulse Oximetry Oxygen Delivery Fraction of Inspired Oxygen 09/21/24 23:10 09/21/24 23:31 09/21/24 23:50 Temperature Pulse Rate 94 97 111 H Respiratory Rate Blood Pressure 123/75 116/71 Pulse Oximetry 98 Oxygen Delivery Mechanical Ventilation Fraction of Inspired Oxygen 40 09/21/24 23:56 09/22/24 00:00 09/22/24 00:00 Temperature Pulse Rate 106 H 109 H Respiratory Rate 28 H Blood Pressure 117/76 Pulse Oximetry 96 Oxygen Delivery Mechanical Ventilation Fraction of Inspired Oxygen 30 30 09/22/24 00:00 09/22/24 00:00 09/22/24 00:00 Temperature 99.4 F Pulse Rate 110 H 109 H 105 H Respiratory Rate 28 H 28 H Blood Pressure 109/65 Pulse Oximetry 95 Oxygen Delivery Fraction of Inspired Oxygen 09/22/24 00:00 09/22/24 00:09 09/22/24 00:30 Temperature Pulse Rate 107 H 110 H 106 H Respiratory Rate 28 H Blood Pressure 116/71 101/64 Pulse Oximetry Oxygen Delivery Fraction of Inspired Oxygen 09/22/24 00:58 09/22/24 02:00 09/22/24 02:00 Temperature 98.9 F Pulse Rate 105 H 102 H 101 H Respiratory Rate 28 H Blood Pressure 101/64 116/72 116/72 Pulse Oximetry 96 Oxygen Delivery Fraction of Inspired Oxygen 09/22/24 02:00 09/22/24 02:00 09/22/24 02:00 Temperature Pulse Rate 102 H 102 H 102 H Respiratory Rate 28 H 28 H Blood Pressure 116/72 Pulse Oximetry Oxygen Delivery Fraction of Inspired Oxygen 09/22/24 02:02 09/22/24 02:02 09/22/24 02:15 Temperature Pulse Rate 95 97 99 Respiratory Rate 28 H 28 H Blood Pressure Pulse Oximetry 98 Oxygen Delivery Mechanical Ventilation Fraction of Inspired Oxygen 30 09/22/24 02:23 09/22/24 02:45 09/22/24 03:15 Temperature Pulse Rate 102 H 102 H 102 H Respiratory Rate Blood Pressure 116/72 118/73 105/65 Pulse Oximetry Oxygen Delivery Fraction of Inspired Oxygen 09/22/24 03:21 09/22/24 03:21 09/22/24 03:28 Temperature Pulse Rate 109 H 102 H Respiratory Rate 28 H 28 H Blood Pressure 116/72 Pulse Oximetry 100 96 Oxygen Delivery Mechanical Ventilation Fraction of Inspired Oxygen 30 30 09/22/24 03:29 09/22/24 04:00 09/22/24 04:00 Temperature 99 F Pulse Rate 102 H 108 H 108 H Respiratory Rate 28 H Blood Pressure 105/65 105/65 Pulse Oximetry 96 Oxygen Delivery Fraction of Inspired Oxygen 09/22/24 04:00 09/22/24 04:02 09/22/24 04:27 Temperature Pulse Rate 113 H 108 H 108 H Respiratory Rate 28 H 28 H Blood Pressure 105/65 Pulse Oximetry Oxygen Delivery Fraction of Inspired Oxygen 09/22/24 04:29 09/22/24 04:29 09/22/24 05:06 Temperature Pulse Rate 108 H 108 H 128 H Respiratory Rate 28 H 28 H Blood Pressure Pulse Oximetry 96 Oxygen Delivery Mechanical Ventilation Fraction of Inspired Oxygen 09/22/24 05:33 09/22/24 06:00 09/22/24 06:00 Temperature Pulse Rate 119 H 134 H 119 H Respiratory Rate 28 H 28 H Blood Pressure 96/67 L 97/63 L Pulse Oximetry 100 Oxygen Delivery Fraction of Inspired Oxygen 09/22/24 06:00 09/22/24 06:00 09/22/24 06:35 Temperature 102 F H Pulse Rate 119 H 119 H Respiratory Rate 28 H Blood Pressure 97/63 L Pulse Oximetry Oxygen Delivery Fraction of Inspired Oxygen 09/22/24 07:36 09/22/24 07:36 09/22/24 07:51 Temperature Pulse Rate 128 H 128 H 128 H Respiratory Rate 32 H 24 H Blood Pressure Pulse Oximetry 98 Oxygen Delivery Mechanical Ventilation Fraction of Inspired Oxygen 25 09/22/24 08:00 09/22/24 08:00 09/22/24 08:00 Temperature 101.4 F H Pulse Rate 129 H 129 H 129 H Respiratory Rate 33 H 33 H Blood Pressure 92/49 L 92/49 L Pulse Oximetry 95 Oxygen Delivery Fraction of Inspired Oxygen 09/22/24 08:00 09/22/24 08:00 09/22/24 08:00 Temperature Pulse Rate 129 H 129 H 114 H Respiratory Rate 33 H 30 H Blood Pressure 92/49 L Pulse Oximetry 100 Oxygen Delivery Mechanical Ventilation Fraction of Inspired Oxygen 45 09/22/24 08:00 09/22/24 08:00 09/22/24 08:42 Temperature 100.7 F H Pulse Rate 128 H Respiratory Rate Blood Pressure Pulse Oximetry Oxygen Delivery Fraction of Inspired Oxygen 45 09/22/24 10:00 09/22/24 10:32 Temperature Pulse Rate 113 H 114 H Respiratory Rate Blood Pressure Pulse Oximetry 98 Oxygen Delivery Mechanical Ventilation Fraction of Inspired Oxygen 45 Intake/Output Intake/Output: Intake & Output 09/19/24 09/20/24 09/21/24 09/22/24 23:59 23:59 23:59 23:59 Intake Total 3352.0 3232.7 1784.5 Output Total 1400 800 Balance 3352.0 1832.7 984.5 Meds/Results Medications: Active Medications Generic Name Dose Route Start Last Admin Trade Name Freq PRN Reason Stop Dose Admin Acetaminophen 650 mg 09/20/24 16:11 09/22/24 06:35 Acetaminophen 325 Mg Tablet PO 650 mg Q4H PRN Administration Mild Pain (1-3) or Fever Acetaminophen 650 mg 09/20/24 21:13 09/20/24 21:28 Acetaminophen 650 Mg Suppository RECTAL 650 mg Q6H PRN Administration Mild Pain (1-3) or Fever Hydrocodone Bitart/Acetaminophen 1 tab 09/20/24 21:16 09/21/24 00:30 Hydrocodone/Acetaminophen (*Crx) 5-325 Mg Tablet PO 1 tab Q4H PRN Administration Pain Rated 4-6 Apixaban 10 mg 09/20/24 21:00 09/22/24 08:50 Apixaban 5 Mg Tablet PO 09/27/24 09:01 10 mg Q12HR LUIS Administration Apixaban 5 mg 09/27/24 21:00 Apixaban 5 Mg Tablet PO Q12HR LUIS Diphenhydramine HCl 50 mg 09/22/24 10:20 Diphenhydramine Hcl Inj 50 Mg/Ml Vial IV PUSH 09/23/24 04:21 Q6H LUIS Guaifenesin 1,200 mg 09/21/24 09:00 09/22/24 08:50 Guaifenesin 12 Hr 600 Mg Tabcr PO 1,200 mg Q12HR LUIS Administration Hydrocortisone Sodium Succinate 100 mg 09/21/24 14:00 09/22/24 05:59 Hydrocortisone Sodium Succinate 100 Mg/2 Ml Vial IV PUSH 100 mg Q8HR LUIS Administration Norepinephrine Bitartrate 8 mg in 250 mls @ 18.75 mls/hr 09/20/24 19:45 09/22/24 08:00 Levophed 8 Mg/D5w 250 Ml IV CONT 10 mcg/min .[id number] LUIS 18.75 mls/hr Titration Protocol 10 MCG/MIN Vasopressin 100 units/ 100 mls @ 0 mls/hr 09/21/24 03:10 09/22/24 08:00 Dextrose IV CONT 0 units/min .Q0M LUIS 0 mls/hr Titration Protocol 0 UNITS/MIN Metronidazole 500 mg in 100 mls @ 100 mls/hr 09/21/24 08:00 09/22/24 10:01 Flagyl 500 Mg/Iso Soln 100 Ml IVPB Infused Q8H LUIS Infusion Albumin Human 100 mls @ 60 mls/hr 09/21/24 07:57 09/22/24 07:26 Albutein IVPB 09/22/24 13:39 Infused Q6HR LUIS Infusion Cefepime HCl 2 gm in 50 mls @ 100 mls/hr 09/21/24 10:35 09/22/24 10:01 Maxipime 2 Gm/Ns 50 Ml IVPB Infused Q12HR LUIS Infusion Doxycycline Hyclate 100 mg in 100 mls @ 100 mls/hr 09/21/24 10:35 09/22/24 10:01 Vibramycin 100 Mg/Ns 100 Ml IVPB Infused Q12HR LUIS Infusion Midazolam HCl 100 mg in 100 mls @ 6 mls/hr 09/21/24 11:00 09/22/24 08:00 Versed 100 Mg/Ns 100 Ml IV CONT 6 mg/hr .[id number] LUIS 6 mls/hr Titration Protocol 6 MG/HR Fentanyl Citrate 2,500 mcg in 250 mls @ 15 mls/hr 09/21/24 11:00 09/22/24 08:00 Fentanyl 2,500 Mcg/Ns 250 Ml IV CONT 150 mcg/hr .[id number] LUIS 15 mls/hr Titration Protocol 150 MCG/HR Sodium Bicarbonate 150 meq/ 1,100 mls @ 75 mls/hr 09/21/24 17:30 09/22/24 10:39 Dextrose IV CONT 75 mls/hr .[id number] LUIS Administration Potassium Chloride 100 mls @ 25 mls/hr 09/22/24 10:19 Kcl 40 Meq/Water 100 Ml IVPB 09/22/24 14:18 ONCE ONE Ipratropium [place] 0.5 mg 09/21/24 08:05 09/22/24 07:36 Ipratropium Br 0.02% Inh Soln 0.5 Mg/2.5 Ml Vial INHALATION 0.5 mg Q6HRT LUIS Administration Levalbuterol HCl 1.25 mg 09/21/24 08:05 09/22/24 07:36 Levalbuterol Neb 1.25 Mg/3 Ml INHALATION 1.25 mg Q6HRT LUIS Administration Multi-Ingred Cream/Lotion/Oil/Oint 1 applic 09/21/24 21:00 09/22/24 08:51 Mineral Oil/White Petrolatum Ointment EACH EYE 1 applic Q12HR LUIS Administration Ondansetron HCl 4 mg 09/20/24 16:11 09/21/24 10:55 Ondansetron Inj 4 Mg/2 Ml Vial IV PUSH 4 mg Q4H PRN Administration Nausea Oseltamivir Phosphate 30 mg 09/21/24 21:00 09/22/24 08:51 Oseltamivir Phosphate Oral Susp 30 Mg/5 Ml Syringe PO 09/25/24 21:01 30 mg Q12HR LUIS Administration Pantoprazole Sodium 40 mg 09/22/24 09:00 09/22/24 08:50 Pantoprazole Sodium Iv 40 Mg Vial IV PUSH 40 mg QAM LUIS Administration Sodium Chloride 10 ml 09/20/24 22:00 09/22/24 03:19 Central Line Flush IV PUSH 10 ml Q8HR LUIS Administration Sodium Chloride 20 ml 09/20/24 19:40 Central Line Flush IV PUSH PRN PRN after blood draws Vancomycin HCl 1 each 09/20/24 22:42 Vancomycin For Acute Kidney Injury IVPB PRN PRN Vancomycin Protocol Radiology Results: ITS Impressions Pulmonary Perfusion Imaging 09/20/24 15:19 IMPRESSION: 1. Intermediate probability for pulmonary embolism. Chest/Abdomen/Pelvis CT 09/20/24 20:26 IMPRESSION: CHEST: 1. Right pleural effusion with right basal pneumonia. 2. One 1.2 cm lymph node anterior to the maria l. ABDOMEN/PELVIS: 1. No evidence of appendicitis, diverticulitis or intestinal obstruction. 2. Fluid in the large bowel suggestive of diarrhea versus enteritis. Clinical correlation advised. Abdomen X-Ray 09/21/24 12:00 IMPRESSION: 1. Nasogastric tube tip in the stomach. Renal Ultrasound 09/21/24 12:26 IMPRESSION: 1. Normal kidneys. No hydronephrosis. Venous Doppler Study 09/21/24 13:19 IMPRESSION: 1. No deep venous thrombosis. Chest X-Ray 09/22/24 07:15 Impression: Moderate to large right pleural effusion with right-sided pulmonary edema/atelectasis versus pneumonia. Left lung essentially clear. Support tubes, as above. Labs Labs: Laboratory Results - last 24 hr 09/21/24 09/21/24 09/21/24 12:27 12:37 12:45 WBC RBC Hgb Hct MCV MCH MCHC RDW Plt Count MPV Immature Gran % (Auto) Neut % (Auto) Lymph % (Auto) [place] % (Auto) Eos % (Auto) Baso % (Auto) Lymph # (Auto) [place] # (Auto) Eos # (Auto) Baso # (Auto) Abs Immat Gran (auto) Absolute Neuts (auto) Absolute Nucleated RBC Total Counted Neutrophils % (Manual) Band Neutrophils % Lymphocytes % (Manual) Monocytes % (Manual) Nucleated RBC % Abs Neuts (Manual) Abs Lymphs (Manual) Abs Monocytes (Manual) Platelet Estimate Hypochromasia Anisocytosis Farideh Cells Schistocytes PT INR APTT Puncture Site Left brachial ABG pH 7.162 L* ABG pCO2 38.2 ABG pO2 161.0 H ABG PO2/FiO2 Ratio 1.61 ABG HCO3 13.4 L ABG O2 Saturation 98.6 ABG O2 Content 15.4 L ABG Base Excess -14.4 A-a Gradient 513.8 Oxyhemoglobin 98.2 Carboxyhemoglobin Methemoglobin Reduced Hemoglobin Total Hemoglobin 10.9 L O2 Delivery Device Ventilator O2 Liters/Min 0.0 Minute Volume Not Reportable Vent Rate 24 Vent Mode Cmv FiO2 100 Tidal Volume 370 PEEP 8 Peak Inspir Pressure Not Reportable Pressure Support 0 Sodium 137 Potassium 4.0 Chloride 110 H Carbon Dioxide 15 L Anion Gap 12 BUN 25 H Creatinine 1.88 H Estim Creat Clear Calc 40 Estimated GFR 31 L Glucose 82 Lactic Acid 2.4 H Calcium 5.8 L* Phosphorus 4.8 H Magnesium Total Bilirubin AST ALT Alkaline Phosphatase Total Creatine Kinase 213 H Total Protein Albumin 2.7 L Lipase < 10 L Urine Eosinophils Ur Random Sodium Ur Random Potassium Urine Creatinine Vancomycin Trough 09/21/24 09/21/24 09/21/24 14:19 15:27 15:57 WBC RBC Hgb Hct MCV MCH MCHC RDW Plt Count MPV Immature Gran % (Auto) Neut % (Auto) Lymph % (Auto) [place] % (Auto) Eos % (Auto) Baso % (Auto) Lymph # (Auto) [place] # (Auto) Eos # (Auto) Baso # (Auto) Abs Immat Gran (auto) Absolute Neuts (auto) Absolute Nucleated RBC Total Counted Neutrophils % (Manual) Band Neutrophils % Lymphocytes % (Manual) Monocytes % (Manual) Nucleated RBC % Abs Neuts (Manual) Abs Lymphs (Manual) Abs Monocytes (Manual) Platelet Estimate Hypochromasia Anisocytosis Farideh Cells Schistocytes PT INR APTT Puncture Site Left brachial ABG pH 7.290 L* ABG pCO2 29.3 L ABG pO2 202.4 H ABG PO2/FiO2 Ratio 2.89 ABG HCO3 13.8 L ABG O2 Saturation 99.3 ABG O2 Content 14.6 L ABG Base Excess -11.6 A-a Gradient 265.2 Oxyhemoglobin 98.7 Carboxyhemoglobin Methemoglobin Reduced Hemoglobin Total Hemoglobin 10.2 L O2 Delivery Device Ventilator O2 Liters/Min 0.0 Minute Volume Not Reportable Vent Rate 28 Vent Mode Cmv FiO2 70 Tidal Volume 400 PEEP 8 Peak Inspir Pressure Not Reportable Pressure Support 0 Sodium Potassium Chloride Carbon Dioxide Anion Gap BUN Creatinine Estim Creat Clear Calc Estimated GFR Glucose Lactic Acid 1.8 Calcium Phosphorus Magnesium Total Bilirubin AST ALT Alkaline Phosphatase Total Creatine Kinase Total Protein Albumin Lipase Urine Eosinophils None seen Ur Random Sodium 125 Ur Random Potassium 26.5 Urine Creatinine 33.0 Vancomycin Trough 09/21/24 09/22/24 09/22/24 21:09 05:52 06:17 WBC 27.7 H RBC 3.49 L Hgb 9.2 L Hct 28.8 L MCV 82.5 MCH 26.4 MCHC 31.9 L RDW 14.0 Plt Count 143 L MPV 9.5 Immature Gran % (Auto) Not Reportable Neut % (Auto) Not Reportable Lymph % (Auto) Not Reportable [place] % (Auto) Not Reportable Eos % (Auto) Not Reportable Baso % (Auto) Not Reportable Lymph # (Auto) Not Reportable [place] # (Auto) Not Reportable Eos # (Auto) Not Reportable Baso # (Auto) Not Reportable Abs Immat Gran (auto) Not Reportable Absolute Neuts (auto) Not Reportable Absolute Nucleated RBC Not Reportable Total Counted 100 Neutrophils % (Manual) 79 H Band Neutrophils % 16 H Lymphocytes % (Manual) 4 L Monocytes % (Manual) 1 L Nucleated RBC % Not Reportable Abs Neuts (Manual) 26.31 H Abs Lymphs (Manual) 1.10 Abs Monocytes (Manual) 0.27 Platelet Estimate Slightly decreased Hypochromasia 1+ Anisocytosis 1+ [place] Cells 2+ Schistocytes None seen PT 33.4 H INR 3.2 APTT 57.4 H Puncture Site Right radial ABG pH 7.335 L ABG pCO2 34.2 L ABG pO2 61.8 L ABG PO2/FiO2 Ratio 2.47 ABG HCO3 17.8 L ABG O2 Saturation 90.5 L ABG O2 Content 12.4 L ABG Base Excess -7.2 A-a Gradient 75.8 Oxyhemoglobin 89.8 L Carboxyhemoglobin 0.0 Methemoglobin 0.0 Reduced Hemoglobin 10.2 H Total Hemoglobin 9.8 L O2 Delivery Device Ventilator O2 Liters/Min Not Reportable Minute Volume Not Reportable Vent Rate 28 Vent Mode Cmv FiO2 25 Tidal Volume 400 PEEP 8 Peak Inspir Pressure Not Reportable Pressure Support Not Reportable Sodium 138 Potassium 3.5 Chloride 105 Carbon Dioxide 18 L Anion Gap 15 H BUN 25 H Creatinine 1.78 H Estim Creat Clear Calc 42 Estimated GFR 33 L Glucose 118 H Lactic Acid 4.3 H* Calcium 6.7 L Phosphorus 2.8 Magnesium 1.3 L Total Bilirubin 1.9 H AST 68 H ALT 36 H Alkaline Phosphatase 54 Total Creatine Kinase Total Protein 6.0 L Albumin 3.3 L Lipase Urine Eosinophils Ur Random Sodium Ur Random Potassium Urine Creatinine Vancomycin Trough 7.1 L Quality VTE Prophylaxis VTE prophylaxis: pharmacologic ordered
[2024-09-22] MEDS: diphenhydrAMINE HCl INJ 50 MG/ML VIAL IV PUSH (11:43)
[2024-09-22] MEDS: KCL 40 MEQ/WATER 100 ML 100 ML 25 ML IVPB (11:44)
--- NOTE | 2024-09-22 11:47 | P.TS_ITS ---
Transfer Discharge Sum: Prov Provider Date of admission: 09/20/24 20:00 Primary care physician: Chilo Ngo, MD Admitting clinician: Brian Sanchez MD Consults: 09/21/24 07:58 Consult to Physician Routine Comment: Consulting Provider: Douglas Carmona name plate stamper/MD group to consult: Nephrology Reason for consultation: Acute kidney injury, metabolic acidosis Has provider been notified: Yes Attending physician on discharge: Emanuel Joshua Discharging clinician: Emanuel Joshua Anticipated date of transfer: 09/22/24 Receiving physician/facility: Accepting physician: Dr. Caraballo Accepting facility/hospital: [facility]. DS: Admitting Diagnosis Discharge Date 09/12/2024 Admitting Diagnosis Acute respiratory failure, septic shock, influenza A, pneumonia, enteritis, acute kidney injury DS: Discharge Diagnosis Discharge Diagnosis (1) Septic shock: Code(s): A41.9 - Sepsis, unspecified organism; R65.21 - Severe sepsis with septic shock Status: Acute Assessment and Plan: Patient presented with shortness of breath, cough, general malaise and fatigue, fevers and chills, body aches which have been worsening since 09/18/24 -patient received 4 L IV fluid bolus in the ER despite which her blood pressures were low, a a central line was inserted in the ED on 09/20 -currently on Levophed , maintain SBP > 100 mmHg and MAP > for 65 mmHg -off vasopressin -continue cefepime, vancomycin and Flagyl (09/21) -09/20: blood cultures growing group A Streptococcus 1 of 2 bottles -09/20: Urine cultures negative so far -continues trace to steroids hydrocortisone for septic shock and pneumonia (2) Acute hypoxic respiratory failure: Code(s): J96.01 - Acute respiratory failure with hypoxia Status: Acute Assessment and Plan: Acute hypoxic respiratory failure, patient has been tachypneic, tachycardic, shallow breathing, possible PE with intermediate probability on V/Q scan -discussed with patient and , both agreeable for intubation as she is significantly tachypneic with shallow breaths, tachycardia, now nausea and vomiting with risk of aspiration -09/21/2024: Patient successfully intubated -continue CMV mode of ventilation, peep of 8, 45% FiO2 -chest x-ray and ABGs reviewed, ventilator adjusted -continue continue bronchodilators -sedated with fentanyl and Versed infusion, maintain RASS of -2, daily SBT and SAT (3) LISANDRO (acute kidney injury): Code(s): N17.9 - Acute kidney failure, unspecified Status: Acute Assessment and Plan: Patient presented with diarrhea, fatigue, malaise, influenza A, dehydration -was adequately hydrated in the ER with 4 L IV fluids -continue maintenance IV fluids -creatinine on admission was 2.07 (baseline creatinine 0.70 in June 2024) -will obtain urine lytes, CK level, urine Na is on feels -check renal ultrasound -nephrology has been consulted -continue to monitor urine output, electrolytes and renal function -continue maintenance IV fluids with sodium bicarb infusion Patient also has known anion gap metabolic acidosis which could be related to diarrhea and or IV fluids, continue to monitor (4) Influenza A: Code(s): J10.1 - Influenza due to other identified influenza virus with other respiratory manifestations Status: Acute Assessment and Plan: Continue Tamiflu, renally dosed (5) Diarrhea: Code(s): R19.7 - Diarrhea, unspecified Status: Acute Assessment and Plan: Diarrhea has improved, continue hydration (6) Pulmonary embolism: Code(s): I26.99 - Other pulmonary embolism without acute cor pulmonale Status: Acute Assessment and Plan: Patient had elevated D-dimer, V/Q scan showed intermediate probability -patient started on Eliquis -09/21: Lower extremity venous Dopplers negative for DVT Plan DVT prophylaxis: Eliquis Stress ulcer prophylaxis: Protonix Nutrition: NPO for now Code Status: Full code Critical Care Time Spent: 42 minutes 09/22: Discussed with patient regarding worsening WBC count, lactic acid, pleural effusion/pneumonia/possible empyema. Discussed with him regarding the positive blood cultures, acute kidney injury. I discussed with him regarding transferred to higher level of care to which he is agreeable. Patient has been accepted to [facility] in [place] on [facility], accepting physician is Dr. Caraballo. Patient be transferred today on 09/21/202409/21: Discussed with patient and her prior to intubation, both of them consented to intubation and mechanical ventilation. I discussed with them regarding radiology reports, blood work. They are aware that patient is hypotensive and requiring 2 blood pressure support medications and that she is on antibiotic for possible infection/pneumonia. I answered all the questions Due to a high probability of clinically significant, life threatening deterioration, the patient required my highest level of preparedness to intervene emergently and I personally spent this critical care time directly and personally managing the patient. This critical care time included obtaining a history; examining the patient; pulse oximetry; ordering and review of studies; arranging urgent treatment with development of a management plan; evaluation of patient's response to treatment; frequent reassessment; and discussions with other providers. It was exclusive of separately billable procedures and treating other patients and teaching time. Please see Assessment and Plan section and the rest of the note for further information on patient assessment and treatment This dictation may have been done utilizing a voice recognition system. Attempts have been made to correct errors. However, there may be uncorrected grammatical, spelling, and recognitions errors present. Transfer Discharge Sum: Med Medications Active and Home Medications: Active Medications Acetaminophen (Acetaminophen 325 Mg Tablet) 650 mg PO Q4H PRN PRN Reason: Mild Pain (1-3) or Fever Last Admin: 09/22/24 06:35 Dose: 650 mg Acetaminophen (Acetaminophen 650 Mg Suppository) 650 mg RECTAL Q6H PRN PRN Reason: Mild Pain (1-3) or Fever Last Admin: 09/20/24 21:28 Dose: 650 mg Hydrocodone Bitart/Acetaminophen (Hydrocodone/Acetaminophen (*Crx) 5-325 Mg Tablet) 1 tab PO Q4H PRN PRN Reason: Pain Rated 4-6 Last Admin: 09/21/24 00:30 Dose: 1 tab Apixaban (Apixaban 5 Mg Tablet) 10 mg PO Q12HR [facility] Stop: 09/27/24 09:01 Last Admin: 09/22/24 08:50 Dose: 10 mg Apixaban (Apixaban 5 Mg Tablet) 5 mg PO Q12HR [facility] Diphenhydramine HCl (Diphenhydramine Hcl Inj 50 Mg/Ml Vial) 50 mg IV PUSH Q6H [facility] Stop: 09/23/24 04:21 Guaifenesin (Guaifenesin 12 Hr 600 Mg Tabcr) 1,200 mg PO Q12HR [facility] Last Admin: 09/22/24 08:50 Dose: 1,200 mg Hydrocortisone Sodium Succinate (Hydrocortisone Sodium Succinate 100 Mg/2 Ml Vial) 100 mg IV PUSH Q8HR [facility] Last Admin: 09/22/24 05:59 Dose: 100 mg Norepinephrine Bitartrate (Levophed 8 Mg/D5w 250 Ml) 8 mg in 250 mls @ 18.75 mls/hr IV CONT .[id number] [facility]; Protocol Last Titration: 09/22/24 08:00 Dose: 10 mcg/min, 18.75 mls/hr Vasopressin 100 units/ (Dextrose) 100 mls @ 0 mls/hr IV CONT .Q0M [facility]; Protocol Last Titration: 09/22/24 08:00 Dose: 0 units/min, 0 mls/hr Metronidazole (Flagyl 500 Mg/Iso Soln 100 Ml) 500 mg in 100 mls @ 100 mls/hr IVPB Q8H [facility] Last Infusion: 09/22/24 10:01 Dose: Infused Albumin Human (Albutein) 100 mls @ 60 mls/hr IVPB Q6HR [facility] Stop: 09/22/24 13:39 Last Infusion: 09/22/24 07:26 Dose: Infused Cefepime HCl (Maxipime 2 Gm/Ns 50 Ml) 2 gm in 50 mls @ 100 mls/hr IVPB Q12HR [facility] Last Infusion: 09/22/24 10:01 Dose: Infused Doxycycline Hyclate (Vibramycin 100 Mg/Ns 100 Ml) 100 mg in 100 mls @ 100 ml s/hr IVPB Q12HR [facility] Last Infusion: 09/22/24 10:01 Dose: Infused Midazolam HCl (Versed 100 Mg/Ns 100 Ml) 100 mg in 100 mls @ 6 mls/hr IV CONT .[id number] [facility]; Protocol Last Titration: 09/22/24 08:00 Dose: 6 mg/hr, 6 mls/hr Fentanyl Citrate (Fentanyl 2,500 Mcg/Ns 250 Ml) 2,500 mcg in 250 mls @ 15 mls/hr IV CONT .[id number] [facility]; Protocol Last Titration: 09/22/24 08:00 Dose: 150 mcg/hr, 15 mls/hr Sodium Bicarbonate 150 meq/ (Dextrose) 1,100 mls @ 75 mls/hr IV CONT .[id number] [facility] Last Admin: 09/22/24 10:39 Dose: 75 mls/hr Potassium Chloride (Kcl 40 Meq/Water 100 Ml) 100 mls @ 25 mls/hr IVPB ONCE ONE Stop: 09/22/24 14:18 Ipratropium Tunica (Ipratropium Br 0.02% Inh Soln 0.5 Mg/2.5 Ml Vial) 0.5 mg INHALATION Q6HRT [facility] Last Admin: 09/22/24 07:36 Dose: 0.5 mg Levalbuterol HCl (Levalbuterol Neb 1.25 Mg/3 Ml) 1.25 mg INHALATION Q6HRT [facility] Last Admin: 09/22/24 07:36 Dose: 1.25 mg Multi-Ingred Cream/Lotion/Oil/Oint (Mineral Oil/White Petrolatum Ointment) 1 applic EACH EYE Q12HR [facility] Last Admin: 09/22/24 08:51 Dose: 1 applic Ondansetron HCl (Ondansetron Inj 4 Mg/2 Ml Vial) 4 mg IV PUSH Q4H PRN PRN Reason: Nausea Last Admin: 09/21/24 10:55 Dose: 4 mg Oseltamivir Phosphate (Oseltamivir Phosphate Oral Susp 30 Mg/5 Ml Syringe) 30 mg PO Q12HR [facility] Stop: 09/25/24 21:01 Last Admin: 09/22/24 08:51 Dose: 30 mg Pantoprazole Sodium (Pantoprazole Sodium Iv 40 Mg Vial) 40 mg IV PUSH QAM [facility] Last Admin: 09/22/24 08:50 Dose: 40 mg Sodium Chloride (Central Line Flush) 10 ml IV PUSH Q8HR [facility] Last Admin: 09/22/24 03:19 Dose: 10 ml Sodium Chloride (Central Line Flush) 20 ml IV PUSH PRN PRN PRN Reason: after blood draws Vancomycin HCl (Vancomycin For Acute Kidney Injury) 1 each IVPB PRN PRN PRN Reason: Vancomycin Protocol Transfer Discharge Sum: Hosp Hospital Course Hospital course: Yvonne Skaggs is a 34 year old female with past medical history of gestational hypertension, no other medical history presented the ED on 09/20/2024 with complains of fevers, nausea, vomiting, diarrhea, fatigue since 09/14/2024, she went to her primary care doctor and was diagnosed with influenza A on 09/18/2024 and was started on Tamiflu. The symptoms continue to worsen and she presented the ED on 09/20/2024 with increasing shortness of breath, cough, general malaise and fatigue, fevers and chills, body aches which have worsened for the last 24 hours prior to admission. In the ER she was tachycardic with heart rates in the 140s, WBC count of 28.5, systolic blood pressures in the 90s, D-dimer was 1.34 sodium 136, potassium 3.4, CO2 25, BUN 22, creatinine 2.07 (baseline creatinine 0.7 in June 2024) lactic acid was 3.1, patient received 4 L IV fluid bolus in the ER, repeat lactic was 3.0.. Total bilirubin was 1.4, AST and ALT were normal. UA was positive for UTI. Influenza A a was positive. RSV, SARS-CoV-[address] scan of the chest abdomen and pelvis without contrast showed right pleural effusion with right basilar pneumonia, 1.2 cm lymph node anterior to the maria l. No evidence of appendicitis, diverticulitis or intestinal obstruction. Fluid in the large bowel suggestive of diarrhea versus enteritis. Chest x-ray showed moderate pleural effusion, mild to moderate probable pulmonary edema pattern correlate clinically for pneumonia Patient denies any alcohol, illicit drug or alcohol use 09/21/2024: Patient got intubated in the ICU after she was tachypneic, with impending respiratory failure and shallow breathing. Lactic acid improved to 1.8, continue to make urine with gradual improvement in her creatinine. Patient still was very acidotic requiring bicarb infusion 09/22/2024: Remains intubated on CMV mode of ventilation, peep of 8, 45% FiO2. Sedated with fentanyl and Versed infusion. Patient on Levophed infusion, currently off vasopressin. Sed lactic acid increased to 4.3 (1.8 yesterday). Patient developed maculopapular rash, blanchable on her torso anteriorly and posteriorly./was also seen on the upper extremities bilaterally mid day on the upper arms, bilateral lower extremities midway to the thighs. I discussed with family regarding transfer patient to a higher level of care to which they were agreeable. Discussed with briar shop supervisor at [facility] Dr. Morfin, who accepted the patient. Be transferred to [facility] on [facility] Condition on transfer: Guarded Time Spent with Patient Time attestation: Total time spent providing and/or coordinating transfer services: Total time spent: Less than 30 minutes Exam Narrative: General: Remains intubated and sedated, no acute distress HEENT:? Pupils in equal and reactive, sclera is flushed Neck:? Supple Respiratory:? Coarse breath sounds bilaterally, Rt > Lt, decreased air entry at bilateral bases, no wheezing Cardiac:? S1-S2 is normal, tachycardia Abdomen:? Soft, nontender, nondistended, hypoactive bowel sounds Extremities:? Edema noted in upper and lower extremities, warm, palpable pedal pulses Neuro:? Patient is awake, alert, oriented, Skin:? Macular papular rash on the torso, abdominal, lower extremities up to the thigh, mid upper extremities, back, blanchable Psych:? Unable to assess at this time DS: Data Data Completed and Pending Labs on day of discharge: Labs from last 24 hours 09/22/24 09/22/24 09/21/24 06:17 05:52 21:09 WBC 27.7 H RBC 3.49 L Hgb 9.2 L Hct 28.8 L MCV 82.5 MCH 26.4 MCHC 31.9 L RDW 14.0 Plt Count 143 L MPV 9.5 Immature Gran % (Auto) Not Reportable Neut % (Auto) Not Reportable Lymph % (Auto) Not Reportable [place] % (Auto) Not Reportable Eos % (Auto) Not Reportable Baso % (Auto) Not Reportable Lymph # (Auto) Not Reportable [place] # (Auto) Not Reportable Eos # (Auto) Not Reportable Baso # (Auto) Not Reportable Abs Immat Gran (auto) Not Reportable Absolute Neuts (auto) Not Reportable Absolute Nucleated RBC Not Reportable Total Counted 100 Neutrophils % (Manual) 79 H Band Neutrophils % 16 H Lymphocytes % (Manual) 4 L Monocytes % (Manual) 1 L Nucleated RBC % Not Reportable Abs Neuts (Manual) 26.31 H Abs Lymphs (Manual) 1.10 Abs Monocytes (Manual) 0.27 Platelet Estimate Slightly decreased Hypochromasia 1+ Anisocytosis 1+ Combined Locks Cells 2+ Schistocytes None seen PT 33.4 H INR 3.2 APTT 57.4 H Puncture Site Right radial ABG pH 7.335 L ABG pCO2 34.2 L ABG pO2 61.8 L ABG PO2/FiO2 Ratio 2.47 ABG HCO3 17.8 L ABG O2 Saturation 90.5 L ABG O2 Content 12.4 L ABG Base Excess -7.2 A-a Gradient 75.8 Oxyhemoglobin 89.8 L Carboxyhemoglobin 0.0 Methemoglobin 0.0 Reduced Hemoglobin 10.2 H Total Hemoglobin 9.8 L O2 Delivery Device Ventilator O2 Liters/Min Not Reportable Minute Volume Not Reportable Vent Rate 28 Vent Mode Cmv FiO2 25 Tidal Volume 400 PEEP 8 Peak Inspir Pressure Not Reportable Pressure Support Not Reportable Sodium 138 Potassium 3.5 Chloride 105 Carbon Dioxide 18 L Anion Gap 15 H BUN 25 H Creatinine 1.78 H Estim Creat Clear Calc 42 Estimated GFR 33 L Glucose 118 H Lactic Acid 4.3 H* Calcium 6.7 L Phosphorus 2.8 Magnesium 1.3 L Total Bilirubin 1.9 H AST 68 H ALT 36 H Alkaline Phosphatase 54 Total Creatine Kinase Total Protein 6.0 L Albumin 3.3 L Lipase Urine Eosinophils Ur Random Creatinine Ur Random Sodium Ur Random Potassium Ur Random Chloride U Random Chloride/Creat Urine Creatinine Vancomycin Trough 7.1 L 09/21/24 09/21/24 09/21/24 15:57 15:27 14:19 WBC RBC Hgb Hct MCV MCH MCHC RDW Plt Count MPV Immature Gran % (Auto) Neut % (Auto) Lymph % (Auto) [place] % (Auto) Eos % (Auto) Baso % (Auto) Lymph # (Auto) [place] # (Auto) Eos # (Auto) Baso # (Auto) Abs Immat Gran (auto) Absolute Neuts (auto) Absolute Nucleated RBC Total Counted Neutrophils % (Manual) Band Neutrophils % Lymphocytes % (Manual) Monocytes % (Manual) Nucleated RBC % Abs Neuts (Manual) Abs Lymphs (Manual) Abs Monocytes (Manual) Platelet Estimate Hypochromasia Anisocytosis Combined Locks Cells Schistocytes PT INR APTT Puncture Site Left brachial ABG pH 7.290 L* ABG pCO2 29.3 L ABG pO2 202.4 H ABG PO2/FiO2 Ratio 2.89 ABG HCO3 13.8 L ABG O2 Saturation 99.3 ABG O2 Content 14.6 L ABG Base Excess -11.6 A-a Gradient 265.2 Oxyhemoglobin 98.7 Carboxyhemoglobin Methemoglobin Reduced Hemoglobin Total Hemoglobin 10.2 L O2 Delivery Device Ventilator O2 Liters/Min 0.0 Minute Volume Not Reportable Vent Rate 28 Vent Mode Cmv FiO2 70 Tidal Volume 400 PEEP 8 Peak Inspir Pressure Not Reportable Pressure Support 0 Sodium Potassium Chloride Carbon Dioxide Anion Gap BUN Creatinine Estim Creat Clear Calc Estimated GFR Glucose Lactic Acid 1.8 Calcium Phosphorus Magnesium Total Bilirubin AST ALT Alkaline Phosphatase Total Creatine Kinase Total Protein Albumin Lipase Urine Eosinophils None seen Ur Random Creatinine Pending Ur Random Sodium 125 Ur Random Potassium 26.5 Ur Random Chloride Pending U Random Chloride/Creat Pending Urine Creatinine 33.0 Vancomycin Trough 09/21/24 09/21/24 09/21/24 12:45 12:37 12:27 WBC RBC Hgb Hct MCV MCH MCHC RDW Plt Count MPV Immature Gran % (Auto) Neut % (Auto) Lymph % (Auto) [place] % (Auto) Eos % (Auto) Baso % (Auto) Lymph # (Auto) [place] # (Auto) Eos # (Auto) Baso # (Auto) Abs Immat Gran (auto) Absolute Neuts (auto) Absolute Nucleated RBC Total Counted Neutrophils % (Manual) Band Neutrophils % Lymphocytes % (Manual) Monocytes % (Manual) Nucleated RBC % Abs Neuts (Manual) Abs Lymphs (Manual) Abs Monocytes (Manual) Platelet Estimate Hypochromasia Anisocytosis Combined Locks Cells Schistocytes PT INR APTT Puncture Site Left brachial ABG pH 7.162 L* ABG pCO2 38.2 ABG pO2 161.0 H ABG PO2/FiO2 Ratio 1.61 ABG HCO3 13.4 L ABG O2 Saturation 98.6 ABG O2 Content 15.4 L ABG Base Excess -14.4 A-a Gradient 513.8 Oxyhemoglobin 98.2 Carboxyhemoglobin Methemoglobin Reduced Hemoglobin Total Hemoglobin 10.9 L O2 Delivery Device Ventilator O2 Liters/Min 0.0 Minute Volume Not Reportable Vent Rate 24 Vent Mode Cmv FiO2 100 Tidal Volume 370 PEEP 8 Peak Inspir Pressure Not Reportable Pressure Support 0 Sodium 137 Potassium 4.0 Chloride 110 H Carbon Dioxide 15 L Anion Gap 12 BUN 25 H Creatinine 1.88 H Estim Creat Clear Calc 40 Estimated GFR 31 L Glucose 82 Lactic Acid 2.4 H Calcium 5.8 L* Phosphorus 4.8 H Magnesium Total Bilirubin AST ALT Alkaline Phosphatase Total Creatine Kinase 213 H Total Protein Albumin 2.7 L Lipase < 10 L Urine Eosinophils Ur Random Creatinine Ur Random Sodium Ur Random Potassium Ur Random Chloride U Random Chloride/Creat Urine Creatinine Vancomycin Trough Preliminary micro results at discharge 09/20/24 20:28 Blood Culture - Preliminary Blood Group A Streptococcus isolated 09/20/24 20:28 Blood Culture - Preliminary Blood
[2024-09-22 13:04] LABS: Lactic Acid 3.8 mmol/L (0.7-2.0)
[2024-09-22 13:21] LABS: Vancomycin Trough 15.7 ug/mL (10.0-20.0)
[2024-09-22] MEDS: NOREPINEPHRINE 8 MG/D5W 250 ML 8 MG/250 ML BAG 18.75 MG IV CONT (13:28)
--- NOTE | 2024-09-22 15:45 | PC.NURSE ---
PT left via EMS with flight crew assisting. Fentanyl, versed, levophed, and bicarb with the patient. Vent settings remained unchanged. OG clamped. Castanon cath in place. Family left with belongings. Report previously given to Fifi STRANGE
[2024-09-24 16:18] LABS: Chloride Rand Ur 124 mmol/L (32-290); Chloride/Creatinine Rand Ur 310 (38-318); Creatinine Random Urine 40 mg/dL (20-275)
== END 2024-09-22 15:11 | disposition short-term general hospital (02) | DRG 871 ==
LOC: ANHED 16:18 → ANH3MEDSUR 17:04 → ANHICU 09-21 12:36
PROVIDERS: Internal Medicine; Internal Medicine Nephrology; Nurse Practitioner Acute Care; Admitting Provider Hospitalist; Emergency Provider Emergency Medicine; PCP Family Medicine; Visit Provider Internal Medicine
DX: A41.9 Sepsis, unspecified organism (principal); I26.99 Other pulmonary embolism without acute cor pulmonale; J10.00 Influenza due to other identified influenza virus with unspecified type of pneumonia; J96.01 Acute respiratory failure with hypoxia; R65.21 Severe sepsis with septic shock; N17.9 Acute kidney failure, unspecified; N39.0 Urinary tract infection, site not specified; E86.0 Dehydration; R17 Unspecified jaundice; R19.7 Diarrhea, unspecified; Z20.822 Contact with and (suspected) exposure to COVID-19
CPT/HCPCS: 31500; 36415; 36556; 36600; 71045; 71250; 74176; 76775; 78582; 80053; 80069; 80202; 81001; 82274; 82375; 82436; 82550; 82570; 82805; 83050; 83605; 83690; 83735; 84100; 84133; 84300; 85018; 85025; 85380; 85610; 85730; 85999; 87040; 87086; 87181; 87493; 87637; 87641; 93005; 93970; 94002; 94640; 96361; 96365; 96375; 96376; 99285; A9270; A9540; A9558; C1751; J0613; J0692; J1200; J1720; J1836; J1885; J2250; J2270; J2405; J2470; J3010; J3370; J3475; J3480; J7030; J7070; J7120; P9047